=== PATIENT | male | born 1955 | race Caucasian/White ===

== ENCOUNTER 2024-11-19 01:04 | Observation (INO) | payer MEDICARE, MEDICAID, SELFPAY ==
--- NOTE | 2024-11-19 | ECG_ITS ---
Test Reason : CP Blood Pressure : */* mmHG Vent. Rate : 70 BPM Atrial Rate : 70 BPM P-R Int : 134 ms QRS Dur : 94 ms QT Int : 406 ms P-R-T Axes : 48 45 54 degrees QTcB Int : 438 ms Normal sinus rhythm Normal ECG No previous ECGs available Referred By: Generic ED Physician Electronically Signed By: JUAN R HUTCHISON
--- NOTE | ~2024-11-19 | CT_ITS ---
EXAMINATION: CT HEAD WITHOUT IV CONTRAST HISTORY: cognitive impairments. TECHNIQUE: Unenhanced helical CT of the head was performed per standard departmental protocol. Coronal and sagittal reformats of the head were also evaluated. One or more of the following techniques was used for dose reduction: Automated exposure control, adjustment of the mA and/or kV according to patient size, use of iterative reconstruction technique. DLP: 707 mGy-cm COMPARISON: There are no prior studies for comparison. FINDINGS: BRAIN: There is mild prominence of the ventricular system and cortical sulci, consistent with atrophy. Periventricular and subcortical white matter hypodensities are noted which are nonspecific, but often seen in the setting of small vessel ischemic disease. There is a cavum septum callosum, a normal variant. There is no mass effect or midline shift. No intra- or extra-axial fluid collections are identified. SINUSES: There is mucosal thickening in the bilateral maxillary sinuses. The mastoid air cells and middle ear cavities are well pneumatized. ORBITS: The visualized orbits are unremarkable. BONES/SOFT TISSUES: The extracranial soft tissues are unremarkable. The calvarium is intact. No suspicious lytic or sclerotic lesions. CT/CT head/brain wo IV con IMPRESSION: No acute intracranial abnormality. Electronically signed by: Alok Burkett MD 11/21/2024 03:55 PM [facility]
--- NOTE | ~2024-11-19 | XR_ITS ---
CLINICAL HISTORY: cp 1 view chest x-ray Comparison: None Findings: No consolidation or effusion. Normal size heart. No acute fracture. IMPRESSION: 1. No acute findings. This document has been electronically signed by: Mara Dubois MD on 11/19/2024 02:21:51
[2024-11-19 01:08] VITALS: BP 128/73; BP 128/77; PULSE 74; PULSE 90; RESP 16; TEMP 37.1; O2SAT 98; O2SAT 99; BMI 21.2
[2024-11-19 01:31] LABS: MANUAL DIFF FLAG NO
[2024-11-19 01:32] LABS: Basophils Percent Auto 0.3 % (0-2); Eosinophils Absolute Auto 0.2 X10*3/uL (0.0-0.4); Eosinophils Percent Auto 2.1 % (0-4); Hematocrit 36.7 % (42.0-52.0); Hemoglobin 12.3 g/dl (14.0-18.0); Imm Gran Abs Auto 0.05 X10*3/uL (0.00-0.03); Imm Gran Pct Auto 0.7 % (0.0-0.4); Lymphocytes Absolute Auto 2.2 X10*3/uL (1.2-4.9); Mean Corpuscular HGB Conc 33.5 g/dl (31.0-36.0); Mean Corpuscular Hemoglobin 30.4 pg (27.0-33.0); Mean Corpuscular Volume 90.6 fL (80.0-98.0); Mean Platelet Volume 9.7 fL (9.4-12.4); Monocytes Absolute Auto 1.1 X10*3/uL (0.1-1.2); Neutrophils Absolute Auto 3.6 x10*3/uL (2.0-8.3); Neutrophils Percent Auto 50.9 % (45-73); Platelet Count 237 X10*3/uL (160-400); Red Blood Count 4.05 X10*6/uL (4.60-5.80); Red Cell Distribution Width 12.1 % (11.0-16.0); White Blood Count 7.1 X10*3/uL (4.8-10.8)
[2024-11-19 01:52] LABS: Alanine Aminotransferase 26 U/L (0-40); Albumin Level 3.9 g/dL (3.5-5.0); Anion Gap 14 (12-20); Aspartate Amino Transferase 27 U/L (5-37); Bilirubin Total 0.4 mg/dL (0.0-1.0); Blood Urea Nitrogen 15 mg/dL (9-16); Calcium 9.2 mg/dL (8.4-10.2); Carbon Dioxide 28 mmol/L (22-29); Chloride 106 mmol/L (96-108); Creatinine Clr Calc Pharmacy 83.9; Estimated Glomerular Filt Rate > 60; Glucose Random 108 mg/dL (60-115); Potassium 3.5 mmol/L (3.3-5.1); Sodium 144 mmol/L (135-145); Total Protein 7.3 g/dL (6.5-8.0)
[2024-11-19 01:53] LABS: Troponin-I High Sensitivity < 2.7 ng/L (<3.5-35.0)
[2024-11-19 02:08] LABS: Influenza A PCR NEGATIVE (Negative); Influenza B PCR NEGATIVE (Negative); Resp Syncy Virus RNA Qual PCR NEGATIVE (Negative); SARS COV2 PCR INHOUSE NEGATIVE (Negative)
--- NOTE | 2024-11-19 02:53 | ED.CHESTPAIN ---
HPI - Chest Pain General Chief Complaint: Chest Pain Stated Complaint: chest pressure Time Seen by Provider: 11/19/24 02:53 History of Present Illness ED Provider: Mak SINGH narrative: The patient is a 69-year-old male who was brought to the hospital by ambulance. He says that he was brought here from a police station. He says he has been at the police station for 5 hours trying to see his daughter's who was a evp chief exploration officer. Eventually an ambulance was called and he was brought to the hospital. Apparently he had complained of some chest pain. The patient has nurse told me that the paramedics did not mention anything about picking the patient up at a police station. Related Data Allergies Allergy/AdvReac Type Severity Reaction Status Date / Time penicillin V Allergy Unknown Unknown Verified 11/19/24 01:18 Review of Systems Review of Systems: Yes all other systems are reviewed and are negative [facility] Social History Social History Advance Directives: No Advance Directives Information Provided: Yes Do you have a plan to hurt others: No Plan Physical Exam Vital Signs: Vital Signs: Last Vital Signs Temp 97.6 F 11/19/24 04:00 Pulse 72 11/19/24 04:00 Resp 17 11/19/24 04:00 BP 127/74 11/19/24 04:00 Pulse Ox 98 11/19/24 04:00 O2 Del Method Room Air 11/19/24 04:00 BMI result Body Mass Index 21.2 Const: Other: The patient is a slim 69-year-old male who was awake and alert. He does not appear in any distress. He does not appear uncomfortable. HEENT: Other: Face is symmetrical. Mucous membranes moist. Eyes: Other: Pupils are round equal, conjunctivae are clear, extraocular movements intact Neck: Neck: Yes full ROM and Yes no lymphadenopathy Resp: Effort & Inspection: normal respiratory effort Auscultation: clear to auscultation bilaterally Cardio: Rate: regular rate Rhythm: regular rhythm Heart sounds: S1 normal heart sound present and S2 normal heart sound present GI: Other: Abdomen is soft and nontender Skin: Other: Skin is dry and unremarkable Neuro: Other: The patient is awake and alert. He is a disorganized historian and rambles at times. Cranial nerves 2-12 are intact. He moves his extremities symmetrically and appropriately. He seems to have normal strength and coordination. Extrem: Other: No peripheral edema Right lower extremity: normal to inspection Left lower extremity: normal to inspection Psych: Other: The patient is awake and alert. He seems reasonably well-kempt. He seems fairly disorganized in his thinking however. Medical Decision Making Medical Decision Making [facility] Narrative: The patient is a 69-year-old male. According to records obtained from [facility] where he was seen on October 11 the patient may have a history of schizophrenia. I believe the patient was psychiatrically hospitalized at that time but I has been unable to confirm that. The patient told me that he was hospitalized but that he has been out of the hospital for several days. He says that he has lost his apartment. He has been homeless. He told a story about going to a police station for several hours before an ambulance was finally called and he was brought here. Today the patient presented complaining of chest pain that has been going on for several hours. He did not look uncomfortable. He has a nonischemic EKG. Troponins are flat. I think he is medically clear. Given that the patient's presentation is confusing and that the patient seems disorganized and given the information available from the ER visit to [facility] in September I have placed a care team consult. The patient will be placed in physician observation pending evaluation by the care team. Lab Data 11/19/24 01:25 11/19/24 01:25 Labs: Lab Results 11/19/24 11/19/24 Range/Units 01:25 07:44 WBC 7.1 (4.8-10.8) X10*3/uL RBC 4.05 L (4.60-5.80) X10*6/uL Hgb 12.3 L (14.0-18.0) g/dl Hct 36.7 L (42.0-52.0) % MCV 90.6 (80.0-98.0) fL MCH 30.4 (27.0-33.0) pg MCHC 33.5 (31.0-36.0) g/dl RDW 12.1 (11.0-16.0) % Plt Count 237 (160-400) X10*3/uL MPV 9.7 (9.4-12.4) fL Immature Gran % (Auto) 0.7 H (0.0-0.4) % Neut % (Auto) 50.9 (45-73) % Lymph % (Auto) 31.0 (20-40) % [place] % (Auto) 15.0 H (2-11) % Eos % (Auto) 2.1 (0-4) % Baso % (Auto) 0.3 (0-2) % Lymph # (Auto) 2.2 (1.2-4.9) X10*3/uL [place] # (Auto) 1.1 (0.1-1.2) X10*3/uL Eos # (Auto) 0.2 (0.0-0.4) X10*3/uL Baso # (Auto) 0.0 (0.0-0.2) X10*3/uL Abs Immat Gran (auto) 0.05 H (0.00-0.03) X10*3/uL Absolute Neuts (auto) 3.6 (2.0-8.3) x10*3/uL Absolute Nucleated RBC 0.000 (0.0-0.012) X10*3/uL Nucleated RBC % (auto) 0.0 (0.0-0.2) /100WBC Sodium 144 (135-145) mmol/L Potassium 3.5 (3.3-5.1) mmol/L Chloride 106 (96-108) mmol/L Carbon Dioxide 28 (22-29) mmol/L Anion Gap 14 (12-20) BUN 15 (9-16) mg/dL Creatinine 0.81 (0.5-1.4) mg/dL Estim Creat Clear Calc 83.9 Estimated GFR > 60 Random Glucose 108 (60-115) mg/dL Calcium 9.2 (8.4-10.2) mg/dL Total Bilirubin 0.4 (0.0-1.0) mg/dL AST 27 (5-37) U/L ALT 26 (0-40) U/L Alkaline Phosphatase 73 (39-117) U/L Troponin I High Sens < 2.7 2.9 (<3.5-35.0) ng/L Total Protein 7.3 (6.5-8.0) g/dL Albumin 3.9 (3.5-5.0) g/dL Influenza Type A (PCR) NEGATIVE (Negative) Influenza Type B (PCR) NEGATIVE (Negative) RSV RNA Qual (PCR) NEGATIVE (Negative) SARS-CoV-2 RNA (RT-PCR) NEGATIVE (Negative) Discharge Plan Discharge Clinical Impression: Disorganized thinking, Chest pain, Homeless Patient Disposition: Still a Patient Print Language: Trinidadian
[2024-11-19 03:38] LABS: Alkaline Phosphatase 73 U/L (39-117)
[2024-11-19 04:00] VITALS: BP 127/74; PULSE 72; RESP 17; TEMP 36.4; O2SAT 98
[2024-11-19 08:13] LABS: Troponin-I High Sensitivity 2.9 ng/L (<3.5-35.0)
[2024-11-19 08:31] VITALS: BP 124/67; PULSE 73; RESP 18; TEMP 36.6; O2SAT 99
--- NOTE | 2024-11-19 10:28 | PC.NURSE ---
Pt is calm, cooperative. changed to susie aguilera. awaits psych consult. no complaints. ate breakfast. is axox2. Skin pwd.
--- NOTE | 2024-11-19 10:45 | MHC.EDTECH ---
Patient changed over and all his belongings in the closet shelf #1.
--- NOTE | 2024-11-19 11:45 | MHC.CARE ---
Pt assessed by CARE team, dispo pending verbal consult with psychiatry team on IPLOC vs CM referral for LTC placement.
[2024-11-19 14:56] VITALS: BP 128/64; PULSE 71; RESP 18; TEMP 36.7; O2SAT 100
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
[2024-11-19 19:32] VITALS: BP 134/78; PULSE 74; RESP 20; TEMP 36.8; O2SAT 99
--- NOTE | 2024-11-19 19:41 | PC.NURSE ---
Heidy Rodgers (psych) evaluated the patient earlier this shift for consultation. Verbally stated that the patient doesn't have capacity, and requires search for guardianship. Dx schizophrenia. Patient ambulates with steady gait, been requesting phone throughout the shift and offered [facility] phone, but declined. Offered to obtain phone numbers from personal device but requests to use his own device. Per psych, plan is to move patient to overflow ED department, monitor, and will be allowed his personal phone only. The rest of his belongings will remain secured in locked locker and returned upon discharge/placement. Patient is homeless, concerns regarding his ability to care for himself. Patient is easily redirectable and cooperative for this RN throughout the shift.
--- NOTE | 2024-11-19 21:40 | PC.NURSE ---
report received from Emelia WILSON and pt brought over to overflow5. pt reported to this RN he isn't sure why he is in this unit and was not explained prior to arrival. this rn educated pt on the unit redirected to surroundings and offered warm blankets water to which pt accepted and was resting comfortably in bed. pt then approached tech stating he can't be over here and things need to go back to the way they were. attempted verbal reassurance, pt is calm but refusing to stay in this unit as it is scary over here. dry charge process attendant made aware and pt transported back to ed.
--- NOTE | 2024-11-19 23:23 | MHC.CARE ---
This resume writer spoke with RN as there was confusion regarding if pt was case management or an inpatient psychiatric bed search. Per Heidy Rodgers, pt was seen by psych consult and the recommendation at this time is for pt to be referred to Case Management as he appears in need of a guardian and per previous nursing note appears to lack capacity at this time and is unable to care for himself independently in the community. MD was notified at this time and a formal case management consult was requested.
--- NOTE | 2024-11-20 07:12 | PC.NURSE ---
Assumed care of patient at 0645, patient appears to be in no apparent distress this am, calm and cooperative, resting in bed. Pt was visualized getting out of bed and doing push ups multiple times over the past 20 minutes. continue plan of care for case management follow up
[2024-11-20 07:56] VITALS: BP 123/78; PULSE 83; RESP 16; TEMP 37.2; O2SAT 98
--- NOTE | 2024-11-20 10:58 | PHA.MEDREC ---
Addendum entered by Yuri Cardenas RPh 11/20/24 14:33: Med rec was reviewed by [facility]. Original Note: Pharmacy Consult ? Medication Reconciliation Pharmacy reviewed med rec done by nursing. No Known Home Meds confirmed, claims match.
--- NOTE | 2024-11-20 15:17 | PC.NURSE ---
Assumed care of this patient at 1500, patient resting quietly on bed at this time, no signs of distress noted, pt. continues to be CM.
--- NOTE | 2024-11-20 15:38 | MHC.CM.ED ---
Received case management consult from Dr Hollingsworth overnight. Patient seen by Heidy cow tender. Waiting for consult to be written. Patient does not have a HCP at [facility] or [facility]. Received telephone call from Maida [employer]. Maida can be reached via telephone at [phone]. Maida is concerned about patient being d/c'd because he is homeless. T/W explained waiting for psych consult to be completed. T/W will reach out to Maida as soon as consult is available. Anticipate patient will need LTC placement and guardianship. Cinthya Blanton CM Director aware. Continue to monitor for d/c needs.
[2024-11-20 15:42] VITALS: BP 143/87; PULSE 78; RESP 18; TEMP 37.2; O2SAT 99
[2024-11-21 00:24] VITALS: BP 139/98; PULSE 77; RESP 18; TEMP 36.9; O2SAT 98
--- NOTE | 2024-11-21 05:08 | PC.NURSE ---
Patient awake this morning and stating to staff that he feels ashamed and like a prisoner. He feels like he deserves to be treated better. Should also be noted that he was on the floor doing push-ups (multiple rounds).
--- NOTE | 2024-11-21 07:32 | PC.NURSE ---
Patient awake and alert, calm eating breakfast.
[2024-11-21 08:37] VITALS: BP 134/83; PULSE 78; RESP 14; TEMP 36.9; O2SAT 98
--- NOTE | 2024-11-21 09:09 | MHC.CM.ED ---
Patient remains in ER BH pod. Per Heidy, signal maintainer, patient does not have capacity. No HCP at [facility] or [facility]. Anticipate patient will need a guardianship & Yaakov's Order for LTC placement. Cinthya Blanton CM Director aware. Continue to monitor for d/c needs.
--- NOTE | 2024-11-21 09:10 | MHC.EDTECH ---
Fasting lipid ordered by SMT OPERATOR, provider aware patient has had breakfast and is requesting labs. Blood work drawn and sent to lab.
[2024-11-21 09:38] LABS: Cholesterol 224 mg/dL (<200); HDL Cholesterol 82 mg/dL (>40); Iron 91 mcg/dL (45-160); LDL Cholesterol Calculated 124 mg/dL (<100); Percent Iron Saturation 30 % (15-50); Total Iron Binding Capacity 306 mcg/dL (228-428); Triglycerides 93 mg/dL (<150); Unsaturated Iron Binding 215 ug/dL
[2024-11-21 09:53] LABS: TSH reflex Free T4 2.15 uIU/mL (0.32-4.0)
[2024-11-21 10:06] LABS: Folate 13.9 ng/mL (> or = 4.0); Vitamin B12 768 pg/mL (200-900)
[2024-11-21 14:00] VITALS: BP 129/87; PULSE 79; RESP 16; TEMP 37; O2SAT 97
--- NOTE | 2024-11-21 14:32 | PC.NURSE ---
MOCA/ACLS: Pt presents pleasant once therapeutic rapport established. Pt is confused and disorganized. Pt is repetitious and states that he wants to go home with his and five kids. States that he came to the hospital for heart treatment, has not received heart medication and wants to go home Pt is currently homeless and has not lived with his or family for some time. He recently lost his apartment. Pt scored a 12/30 on the MOCA with a +1 for education level. This is indicative of moderate to severe cognitive impairment. Pt scored a 4.4 on the [place] Cognitive Level Screen indicating MODERATE cognitive functional impairment and the need for 24-hour supervision, 34% cognitive assistance due to poor judgment, low safety awareness and difficulty with problem solving with the activities of daily living, self care.
[2024-11-21 21:11] VITALS: BP 139/69; PULSE 93; RESP 18; TEMP 37.3; O2SAT 99
[2024-11-22 06:24] VITALS: BP 137/86; PULSE 79; RESP 16; TEMP 36.7; O2SAT 99
--- NOTE | 2024-11-22 07:01 | PC.NURSE ---
Assumed care of patient at 0645, patient appears to be in no apparent distress noted, patient offers no complaints at this time. Continue plan of care for case management
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
--- NOTE | 2024-11-22 12:35 | MHC.CM.ED ---
Patient remains in ER BH Pod. MOCA & ACL completed. Indicate moderate to severe cognitive impairment. Cinthya Blanton CM Director working on medical certificate for guardianship and Yaakov's order. Continue to monitor for d/c needs.
[2024-11-22] MEDS: risperiDONE 0.5 MG TABLET PO ×2 (12:56→21:16)
[2024-11-22 13:54] VITALS: BP 150/85; PULSE 79; RESP 16; TEMP 36.7; O2SAT 99
--- NOTE | 2024-11-22 19:11 | PC.NURSE ---
patient appears to remain at rest presnetly respirations even and unlabored patient appears in no distress
[2024-11-22 20:27] VITALS: BP 135/89; PULSE 86; RESP 18; TEMP 36.9; O2SAT 95
--- NOTE | 2024-11-23 08:47 | PC.NURSE ---
Pt pacing around in pod, stating he's upset that he's still here; pt refusing meds at this time; care team/CM to be made aware
[2024-11-23 10:14] VITALS: BP 133/83; PULSE 73; RESP 14; TEMP 36.9; O2SAT 97
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
[2024-11-23 17:04] VITALS: BP 128/76; PULSE 71; RESP 16; TEMP 37.2; O2SAT 99
--- NOTE | 2024-11-23 19:03 | PC.NURSE ---
patient appears to remain at rest presently ambulating ad isaac in milieu, awaiting transfer to inpatient unit appears to be in no distress.
--- NOTE | 2024-11-23 22:32 | PC.NURSE ---
patient appears to be relaxed at this time, laying in bed, in the last fifteen minutes tried to call a family member
[2024-11-24 05:01] LABS: MANUAL DIFF FLAG NO
[2024-11-24 05:07] LABS: Basophils Percent Auto 0.3 % (0-2); Eosinophils Absolute Auto 0.1 X10*3/uL (0.0-0.4); Eosinophils Percent Auto 1.8 % (0-4); Hematocrit 39.6 % (42.0-52.0); Hemoglobin 13.1 g/dl (14.0-18.0); Imm Gran Abs Auto 0.02 X10*3/uL (0.00-0.03); Imm Gran Pct Auto 0.3 % (0.0-0.4); Lymphocytes Absolute Auto 2.4 X10*3/uL (1.2-4.9); Lymphocytes Percent Auto 38.8 % (20-40); Mean Corpuscular HGB Conc 33.1 g/dl (31.0-36.0); Mean Corpuscular Hemoglobin 30.3 pg (27.0-33.0); Mean Corpuscular Volume 91.7 fL (80.0-98.0); Mean Platelet Volume 10.5 fL (9.4-12.4); Monocytes Absolute Auto 0.7 X10*3/uL (0.1-1.2); Monocytes Percent Auto 11.8 % (2-11); Neutrophils Absolute Auto 2.9 x10*3/uL (2.0-8.3); Platelet Count 237 X10*3/uL (160-400); Red Blood Count 4.32 X10*6/uL (4.60-5.80); White Blood Count 6.2 X10*3/uL (4.8-10.8)
[2024-11-24 05:17] LABS: Anion Gap 11 (12-20); Blood Urea Nitrogen 15 mg/dL (9-16); Calcium 9.7 mg/dL (8.4-10.2); Carbon Dioxide 29 mmol/L (22-29); Chloride 105 mmol/L (96-108); Creatinine Clr Calc Pharmacy 83.9; Estimated Glomerular Filt Rate > 60; Glucose Random 99 mg/dL (60-115); Potassium 4.6 mmol/L (3.3-5.1); Sodium 140 mmol/L (135-145)
--- NOTE | 2024-11-24 06:24 | PC.NURSE ---
patient appear to remain at rest at resent respirations are even and unlbaored patient appears in no distress
--- NOTE | 2024-11-24 07:01 | PC.NURSE ---
Assumed care of patient at 0645, patient appears to be in no apparent distress this am, laying in bed, respirations even and unlabored. Continue plan of care for admission to [facility]
--- NOTE | 2024-11-24 14:03 | P.PNIM_ITS ---
Subjective Subjective Date of Service: 11/24/24 Interval History: No new issues, very pleasant Physical Exam 2 Vital Signs: Vital Signs: Last Vital Signs Temp 98.9 F 11/23/24 17:04 Pulse 71 11/23/24 17:04 Resp 16 11/23/24 17:04 BP 128/76 11/23/24 17:04 Pulse Ox 99 11/23/24 17:04 O2 Del Method Room Air 11/23/24 17:04 BMI result Body Mass Index 21.2 Const: Other: General: oriented to self, place Resp: CTA bilateral CVS: S1,S2,RRR GI: +BS, NT, no distention Skin: No rash Neuro: motor grossly intact Psych: appropriate affect Objective Data Active Medications Acetaminophen (Acetaminophen 325 Mg Tablet) 650 mg PO Q6H PRN PRN Reason: Pain, Mild 1-3,fever,headache Calcium Carbonate (Calcium Carbonate 750 Mg Tab.Chew) 750 mg PO Q4H PRN PRN Reason: Heartburn Enoxaparin Sodium (Enoxaparin Sodium 40 Mg/0.4 Ml Syringe) 40 mg SUBCUT Q24H [facility] Last Admin: 11/24/24 00:27 Dose: Not Given Documented By: KENTON Non-Admin Reason: ambulatory Magnesium Hydroxide (Milk Of Magnesia 30 Ml Oral.Susp) 30 ml PO DAILY PRN PRN Reason: Constipation Melatonin (Melatonin 3 Mg Tablet) 6 mg PO BEDTIME PRN PRN Reason: Insomnia Ondansetron HCl (Ondansetron Hcl 4 Mg/2 Ml Vial) 4 mg IVPUSH Q8H PRN PRN Reason: Nausea and Vomiting Risperidone (Risperidone 0.5 Mg Tablet) 0.5 mg PO BID [facility] Last Admin: 11/24/24 08:19 Dose: Not Given Documented By: BEKA Non-Admin Reason: Patient Refused Sodium Chloride (0.9 % Sodium Chloride Flush 3 Ml Syringe) 3 ml IVFLUSH QSHIFT [facility] Last Admin: 11/24/24 07:30 Dose: Not Given Documented By: BEKA Non-Admin Reason: no iv present Labs 11/24/24 04:17 11/24/24 04:17 Labs: Laboratory Results - last 24 hr 11/24/24 04:17 MCV 91.7 MCH 30.3 MCHC 33.1 RDW 12.0 Plt Count 237 MPV 10.5 Immature Gran % (Auto) 0.3 Neut % (Auto) 47.0 Lymph % (Auto) 38.8 [place] % (Auto) 11.8 H Eos % (Auto) 1.8 Baso % (Auto) 0.3 Lymph # (Auto) 2.4 [place] # (Auto) 0.7 Eos # (Auto) 0.1 Baso # (Auto) 0.0 Abs Immat Gran (auto) 0.02 Absolute Neuts (auto) 2.9 Absolute Nucleated RBC 0.000 Nucleated RBC % (auto) 0.0 Anion Gap 11 L Estim Creat Clear Calc 83.9 Estimated GFR > 60 Random Glucose 99 Calcium 9.7 Assessment and Plan (1) Cognitive impairment: Status: Acute (2) Major neurocognitive disorder: Status: Acute Plan Pt is a 69-year-old male with unknown PMH who initially presented to the ED four days prior on 11/19/2024 complaining of chest pain. Psychiatric evaluation indicated pt does not have capacity and has significant cognitive impairment and paranoid delusions likely secondary to dementia. Given that pt will require LTC placement requiring guardianship and potentially Downing orders, pt will be admitted to the hospital as a social admission. Dementia Pt evaluated by psychiatry and deemed significantly cognitive impaired with paranoid delusions secondary to dementia Pt unable to take care of self, recently homeless Will require LTC, possible guardianship and/or Downing order Continue risperidone per Psych rec Pt otherwise has no acute medical complaints or known chronic medical conditions. Full Code DVT Prophylaxis: Lovenox Pt be admitted to the hospital under observation as he social admission as he will likely require guardianship and potentially Downing orders in order to place in LTC. Quality Stroke Does the patient have a stroke diagnosis?: No VTE Prior VTE?: No VTE Risk Level:: Medical - moderate - high VTE Device Contraindication: Treatment Not Indicated VTE Drug Contraindication: N/A - Med Ordered
[2024-11-24 16:20] VITALS: BP 134/84; PULSE 77; RESP 14; TEMP 36.8; O2SAT 98
--- NOTE | 2024-11-24 17:48 | PC.NURSE ---
Patient continues to have uneventful day, currently resting in bed, earlier during the day he was watching TV with others in the common area. No apparent distress is noted at this time
--- NOTE | 2024-11-24 20:05 | PC.NURSE ---
patient refusing Risperidone You shira's are trying to drug me
--- NOTE | 2024-11-24 22:42 | PC.NURSE ---
Assumed care of patient at this time, patient is asleep and in no distress. RR even and unlabored. Will monitor throughout the night
--- NOTE | 2024-11-25 00:36 | PC.NURSE ---
Patient being moved to room 7 to accommodate for another person.
--- NOTE | 2024-11-25 00:52 | PC.NURSE ---
Assumed care for pt. Pt layind in bed, resting. No apparent distress noted. Noise minimized and pt allowed to sleep. No apparent distress noted. Monitoring is ongoing.
[2024-11-25 05:35] VITALS: PULSE 62; RESP 16; TEMP 36.8; O2SAT 98
[2024-11-25] MEDS: risperiDONE 0.5 MG TABLET PO ×2 (08:08→22:00)
[2024-11-25 08:09] VITALS: BP 138/77; PULSE 74; RESP 16; O2SAT 98
--- NOTE | 2024-11-25 09:54 | MHC.CM.PN ---
[facility] DELIVERED PT IS A SOCIAL ADMISSION FROM THE ED. PT IS FUNCTIONALLY INDEPENDENT. PT WAS FOUND TO HAVE NO CAPACITY VIA PSYCH AND GUARDIANSHIP/CULLEN ORDER IS PENDING. PT WILL NEED LTC PLACEMENT. DP: GUARDIANSHIP/CULLEN TO BE SOUGHT, WILL NEED LTC PLACEMENT. BLS TRANSPORT. CM WILL CONTINUE TO FOLLOW FOR ANY CHANGE TO DC PLAN/NEEDS.
[2024-11-25 09:59] VITALS: BP 121/71; PULSE 80; RESP 16; TEMP 36.3; O2SAT 97
--- NOTE | 2024-11-25 10:54 | HO.PM.IMPN ---
Subjective Subjective Date of Service: 11/25/24 Interval History: No new issues, very pleasant paranoid Physical Exam Vital Signs: Vital Signs: Last Vital Signs Temp 97.3 F 11/25/24 09:59 Pulse 80 11/25/24 09:59 Resp 16 11/25/24 09:59 BP 121/71 11/25/24 09:59 Pulse Ox 97 11/25/24 09:59 O2 Del Method Room Air 11/25/24 09:59 BMI result Body Mass Index 21.2 Const: Other: General: oriented to self, place Resp: CTA bilateral CVS: S1,S2,RRR GI: +BS, NT, no distention Skin: No rash Neuro: motor grossly intact Psych: appropriate affect Objective Data Active Medications Acetaminophen (Acetaminophen 325 Mg Tablet) 650 mg PO Q6H PRN PRN Reason: Pain, Mild 1-3,fever,headache Calcium Carbonate (Calcium Carbonate 750 Mg Tab.Chew) 750 mg PO Q4H PRN PRN Reason: Heartburn Enoxaparin Sodium (Enoxaparin Sodium 40 Mg/0.4 Ml Syringe) 40 mg SUBCUT Q24H [facility]PLAC[facility] BY [facility] Last Admin: 11/24/24 22:54 Dose: Not Given Documented By: GREGORY Non-Admin Reason: Patient Refused Magnesium Hydroxide (Milk Of Magnesia 30 Ml Oral.Susp) 30 ml PO DAILY PRN PRN Reason: Constipation Melatonin (Melatonin 3 Mg Tablet) 6 mg PO BEDTIME PRN PRN Reason: Insomnia Ondansetron HCl (Ondansetron Hcl 4 Mg/2 Ml Vial) 4 mg IVPUSH Q8H PRN PRN Reason: Nausea and Vomiting Risperidone (Risperidone 0.5 Mg Tablet) 0.5 mg PO BID [facility]PL[facility] BY [facility] Last Admin: 11/25/24 08:08 Dose: 0.5 mg Documented By: SIVAN Sodium Chloride (0.9 % Sodium Chloride Flush 3 Ml Syringe) 3 ml IVFLUSH QSHIFT REPLACED BY [facility] Last Admin: 11/25/24 08:37 Dose: Not Given Documented By: SIVAN Non-Admin Reason: No IV access Labs 11/24/24 04:17 11/24/24 04:17 Assessment and Plan (1) Cognitive impairment: Status: Acute (2) Major neurocognitive disorder: Status: Acute Plan Pt is a 69-year-old male with unknown PMH who initially presented to the ED four days prior on 11/19/2024 complaining of chest pain. Psychiatric evaluation indicated pt does not have capacity and has significant cognitive impairment and paranoid delusions likely secondary to dementia. Given that pt will require LTC placement requiring guardianship and potentially Downing orders, pt will be admitted to the hospital as a social admission. Dementia deemed significantly cognitive impaired with paranoid delusions secondary to dementia he is unable to take care of self, recently homeless Will require LTC, possible guardianship and/or Downing order Continue risperidone per Psych rec Pt otherwise has no acute medical complaints or known chronic medical conditions. Full Code DVT Prophylaxis: Lovenox Pt be admitted to the hospital under observation as he social admission as he will likely require guardianship and potentially Downing orders in order to place in LTC. Quality Stroke Does the patient have a stroke diagnosis?: No VTE Prior VTE?: No VTE Risk Level:: Medical - moderate - high VTE Device Contraindication: Treatment Not Indicated VTE Drug Contraindication: N/A - Med Ordered
[2024-11-25] MEDS: Flu Vacc TS2024-25(6mos up)/PF 0.5 ML SYRINGE IM (12:07)
[2024-11-25 14:38] LABS: Appearance Urine Clear; Color Urine Yellow; Glucose Urine UA Negative (Negative); Leukocyte Esterase Urine Negative (Negative); Nitrite Urine Negative (Negative); PH 5.5 (5.0-9.0); Urine Blood Negative (Negative); Urine Ketones Negative (Negative); Urine Protein Negative (Neg-Trace)
[2024-11-25 14:40] LABS: Bacteria Urine None Seen (None Seen); Hyaline Casts Urine 0-2 /LPF (0-2); RBC Urine 0-2 /HPF (0-2); Squamous Epithelial Cell Urine 0-2 /HPF (0-2); WBC Urine 0-5 /HPF (0-5)
[2024-11-25 15:04] VITALS: BP 116/68; PULSE 78; RESP 16; TEMP 36.6; O2SAT 99
[2024-11-25 19:23] VITALS: BP 106/60; PULSE 80; RESP 18; TEMP 36.3; O2SAT 98
[2024-11-26 03:17] VITALS: BP 123/77; PULSE 67; RESP 14; TEMP 36.2; O2SAT 96
[2024-11-26 07:30] VITALS: BP 133/76; PULSE 73; RESP 16; TEMP 37.1; O2SAT 96
[2024-11-26] MEDS: risperiDONE 0.5 MG TABLET PO ×2 (09:42→20:47)
--- NOTE | 2024-11-26 11:46 | P.PNIM_ITS ---
Subjective Subjective Date of Service: 11/26/24 Interval History: No new issues, very pleasant paranoid Physical Exam 2 Vital Signs: Vital Signs: Last Vital Signs Temp 98.7 F 11/26/24 07:30 Pulse 73 11/26/24 07:30 Resp 16 11/26/24 07:30 BP 133/76 11/26/24 07:30 Pulse Ox 96 11/26/24 07:30 O2 Del Method Room Air 11/26/24 07:30 BMI result Body Mass Index 21.2 Const: Other: General: oriented to self, place Resp: CTA bilateral CVS: S1,S2,RRR GI: +BS, NT, no distention Skin: No rash Neuro: motor grossly intact Psych: appropriate affect Objective Data Active Medications Acetaminophen (Acetaminophen 325 Mg Tablet) 650 mg PO Q6H PRN PRN Reason: Pain, Mild 1-3,fever,headache Calcium Carbonate (Calcium Carbonate 750 Mg Tab.Chew) 750 mg PO Q4H PRN PRN Reason: Heartburn Enoxaparin Sodium (Enoxaparin Sodium 40 Mg/0.4 Ml Syringe) 40 mg SUBCUT Q24H [facility] Last Admin: 11/25/24 22:02 Dose: Not Given Documented By: KRISTIN Non-Admin Reason: Patient Refused Magnesium Hydroxide (Milk Of Magnesia 30 Ml Oral.Susp) 30 ml PO DAILY PRN PRN Reason: Constipation Melatonin (Melatonin 3 Mg Tablet) 6 mg PO BEDTIME PRN PRN Reason: Insomnia Ondansetron HCl (Ondansetron Hcl 4 Mg/2 Ml Vial) 4 mg IVPUSH Q8H PRN PRN Reason: Nausea and Vomiting Risperidone (Risperidone 0.5 Mg Tablet) 0.5 mg PO BID [facility] Last Admin: 11/26/24 09:42 Dose: 0.5 mg Documented By: LEATHA Sodium Chloride (0.9 % Sodium Chloride Flush 3 Ml Syringe) 3 ml IVFLUSH QSHIFT [facility] Last Admin: 11/26/24 09:22 Dose: Not Given Documented By: LEATHA Non-Admin Reason: No Access Labs 11/24/24 04:17 11/24/24 04:17 Labs: Laboratory Results - last 24 hr 11/25/24 14:29 Urine Color Yellow Urine Appearance Clear Urine pH 5.5 Ur Specific [place] 1.020 Urine Protein Negative Urine Glucose (UA) Negative Urine Ketones Negative Urine Blood Negative Urine Nitrite Negative Ur Leukocyte Esterase Negative Urine RBC 0-2 Urine WBC 0-5 Ur Squamous Epith Cells 0-2 Urine Bacteria None Seen Hyaline Casts 0-2 Assessment and Plan (1) Cognitive impairment: Status: Acute (2) Major neurocognitive disorder: Status: Acute Plan Pt is a 69-year-old male with unknown PMH who initially presented to the ED four days prior on 11/19/2024 complaining of chest pain. Psychiatric evaluation indicated pt does not have capacity and has significant cognitive impairment and paranoid delusions likely secondary to dementia. Given that pt will require LTC placement requiring guardianship and potentially Downing orders, pt will be admitted to the hospital as a social admission. Dementia deemed significantly cognitive impaired with paranoid delusions secondary to dementia he is unable to take care of self, recently homeless Will require LTC, possible guardianship and/or Downing order Continue risperidone per Psych rec Pt otherwise has no acute medical complaints or known chronic medical conditions. Full Code DVT Prophylaxis: Lovenox Pt be admitted to the hospital under observation as he social admission as he will likely require guardianship and potentially Downing orders in order to place in LTC . Quality Stroke Does the patient have a stroke diagnosis?: No VTE Prior VTE?: No VTE Risk Level:: Medical - moderate - high VTE Device Contraindication: Treatment Not Indicated VTE Drug Contraindication: N/A - Med Ordered
[2024-11-26 15:48] VITALS: BP 133/78; PULSE 74; RESP 16; TEMP 36.8; O2SAT 99
[2024-11-26 19:19] VITALS: BP 129/82; PULSE 79; RESP 18; TEMP 37.2; O2SAT 99
[2024-11-26] MEDS: Enoxaparin Sodium 40 MG/0.4 ML SYRINGE SUBCUT (23:20)
[2024-11-27 04:00] VITALS: BP 129/79; PULSE 97; RESP 18; TEMP 36.2; O2SAT 97
[2024-11-27 07:15] VITALS: BP 138/82; PULSE 66; RESP 16; TEMP 36.4; O2SAT 97
[2024-11-27] MEDS: risperiDONE 0.5 MG TABLET PO (08:03)
--- NOTE | 2024-11-27 14:36 | MHC.CM.PN ---
CM IS AWAITING GUARDIANSHIP/CULLEN HEARING DATE. CM WILL CONT TO FOLLOW FOR ANY CHANGE IN DC PLAN/NEEDS.
[2024-11-27 15:11] VITALS: BP 127/81; PULSE 79; RESP 18; TEMP 36.8; O2SAT 96
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
--- NOTE | 2024-11-27 16:28 | HO.PM.IMPN ---
Subjective Subjective Date of Service: 11/27/24 Interval History: Offers no acute complaints Requesting for a white tablet that was given to him at other facility Review of Systems unable to obtain review of system due to mental status. Physical Exam Vital Signs: Vital Signs: Last Vital Signs Temp 98.2 F 11/27/24 15:11 Pulse 79 11/27/24 15:11 Resp 18 11/27/24 15:11 BP 127/81 11/27/24 15:11 Pulse Ox 96 11/27/24 15:11 O2 Del Method Room Air 11/27/24 15:11 BMI result Body Mass Index 21.2 Const: Other: General resting comfortably in no acute distress. Neck no JVD. CVS regular rate rhythm, Respiratory lungs clear to auscultation, no respiratory distress. Gastrointestinal abdomen soft, non tender, bowel sounds audible Extremities no edema. Neuro non focal , moving all 4 extremity, speech clear. Skin no rash Psych poor insight Objective Data Active Medications Acetaminophen (Acetaminophen 325 Mg Tablet) 650 mg PO Q6H PRN PRN Reason: Pain, Mild 1-3,fever,headache Calcium Carbonate (Calcium Carbonate 750 Mg Tab.Chew) 750 mg PO Q4H PRN PRN Reason: Heartburn Enoxaparin Sodium (Enoxaparin Sodium 40 Mg/0.4 Ml Syringe) 40 mg SUBCUT Q24H [facility] Last Admin: 11/26/24 23:20 Dose: 40 mg Documented By: KRISTIN Magnesium Hydroxide (Milk Of Magnesia 30 Ml Oral.Susp) 30 ml PO DAILY PRN PRN Reason: Constipation Melatonin (Melatonin 3 Mg Tablet) 6 mg PO BEDTIME PRN PRN Reason: Insomnia Ondansetron HCl (Ondansetron Hcl 4 Mg/2 Ml Vial) 4 mg IVPUSH Q8H PRN PRN Reason: Nausea and Vomiting Risperidone (Risperidone 1 Mg Tablet) 1 mg PO BID [facility] Sodium Chloride (0.9 % Sodium Chloride Flush 3 Ml Syringe) 3 ml IVFLUSH QSHIFT [facility] Last Admin: 11/27/24 15:13 Dose: Not Given Documented By: MARTA Non-Admin Reason: No Access Labs 11/24/24 04:17 11/24/24 04:17 Assessment and Plan (1) Major neurocognitive disorder: Status: Acute (2) Psychosis: Status: Acute (3) Cognitive impairment: Status: Acute Plan 69-year-old male with unknown PMH who initially presented to the ED four days prior on 11/19/2024 complaining of chest pain. Psychiatric evaluation indicated pt does not have capacity and has significant cognitive impairment and paranoid delusions likely secondary to dementia. Given that pt will require LTC placement requiring guardianship and potentially Downing orders, pt will be admitted to the hospital as a social admission. 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 Full Code DVT Prophylaxis: Kimberly admitted to the hospital under observation as he social admission as he will likely require guardianship and potentially Downing orders in order to place in LTC Quality Stroke Does the patient have a stroke diagnosis?: No VTE Prior VTE?: No VTE Risk Level:: Medical - moderate - high VTE Device Contraindication: Treatment Not Indicated VTE Drug Contraindication: N/A - Med Ordered
[2024-11-27 19:19] VITALS: BP 135/77; PULSE 93; RESP 18; TEMP 36.6; O2SAT 97
[2024-11-27] MEDS: risperiDONE 1 MG TABLET PO (20:35)
[2024-11-28 03:59] VITALS: BP 122/70; PULSE 63; RESP 18; TEMP 36.7; O2SAT 94
[2024-11-28 07:02] VITALS: BP 120/66; PULSE 66; RESP 16; TEMP 36.4; O2SAT 97
[2024-11-28] MEDS: risperiDONE 1 MG TABLET PO ×2 (09:08→20:35)
--- NOTE | 2024-11-28 12:09 | HO.PM.IMPN ---
Subjective Subjective Date of Service: 11/28/24 Interval History: Being followed for placement Offers no acute complaints Physical Exam Vital Signs: Vital Signs: Last Vital Signs Temp 97.6 F 11/28/24 07:02 Pulse 66 11/28/24 07:02 Resp 16 11/28/24 07:02 BP 120/66 11/28/24 07:02 Pulse Ox 97 11/28/24 07:02 O2 Del Method Room Air 11/28/24 07:02 BMI result Body Mass Index 21.2 Const: Other: General resting comfortably in no acute distress. Neck no JVD. CVS regular rate rhythm, Respiratory lungs clear to auscultation, no respiratory distress. Gastrointestinal abdomen soft, non tender, bowel sounds audible Extremities no edema. Neuro non focal , moving all 4 extremity, speech clear. Skin no rash Psych poor insight Objective Data Active Medications Acetaminophen (Acetaminophen 325 Mg Tablet) 650 mg PO Q6H PRN PRN Reason: Pain, Mild 1-3,fever,headache Calcium Carbonate (Calcium Carbonate 750 Mg Tab.Chew) 750 mg PO Q4H PRN PRN Reason: Heartburn Enoxaparin Sodium (Enoxaparin Sodium 40 Mg/0.4 Ml Syringe) 40 mg SUBCUT Q24H [facility] Last Admin: 11/27/24 20:37 Dose: Not Given Documented By: JATINDER Non-Admin Reason: Patient Refused Magnesium Hydroxide (Milk Of Magnesia 30 Ml Oral.Susp) 30 ml PO DAILY PRN PRN Reason: Constipation Melatonin (Melatonin 3 Mg Tablet) 6 mg PO BEDTIME PRN PRN Reason: Insomnia Ondansetron HCl (Ondansetron Hcl 4 Mg/2 Ml Vial) 4 mg IVPUSH Q8H PRN PRN Reason: Nausea and Vomiting Risperidone (Risperidone 1 Mg Tablet) 1 mg PO BID [facility] Last Admin: 11/28/24 09:08 Dose: 1 mg Documented By: ESTEFANIA Sodium Chloride (0.9 % Sodium Chloride Flush 3 Ml Syringe) 3 ml IVFLUSH QSHIFT [facility] Last Admin: 11/28/24 09:08 Dose: Not Given Documented By: ESTEFANIA Non-Admin Reason: No Access Labs 11/24/24 04:17 11/24/24 04:17 Assessment and Plan (1) Major neurocognitive disorder: Status: Acute (2) Cognitive impairment: Status: Acute Plan 69-year-old male with unknown PMH who initially presented to the ED four days prior on 11/19/2024 complaining of chest pain. Psychiatric evaluation indicated pt does not have capacity and has significant cognitive impairment and paranoid delusions likely secondary to dementia. Given that pt will require LTC placement requiring guardianship and potentially Downing orders, pt will be admitted to the hospital as a social admission. Unspecified Dementia Head CT showed microvascular changes and atrophy likely mixed etiology vascular and Alzheimer's dementia, has no capacity to make medical decision deemed significantly cognitive impaired with paranoid delusions secondary to dementia UA negative. unable to take care of self, recently homeless , requiring 24 7 care Will require LTC, possible guardianship and/or Downing order Continue risperidone per Psych rec. Pt otherwise has no acute medical complaints or known chronic medical conditions. Full Code DVT Prophylaxis: Kimberly admitted to the hospital under observation as he social admission as he will likely require guardianship and potentially Downing orders in order to place in LTC Quality Stroke Does the patient have a stroke diagnosis?: No VTE Prior VTE?: No VTE Risk Level:: Medical - moderate - high VTE Device Contraindication: Treatment Not Indicated VTE Drug Contraindication: N/A - Med Ordered
[2024-11-28 14:55] VITALS: BP 131/68; PULSE 82; RESP 18; TEMP 36.1; O2SAT 97
[2024-11-28 19:17] VITALS: BP 128/68; PULSE 79; RESP 18; TEMP 36.8; O2SAT 96
[2024-11-28 23:34] VITALS: BP 120/69; PULSE 73; RESP 18; TEMP 36.6; O2SAT 98
[2024-11-29 07:15] VITALS: BP 135/63; PULSE 55; RESP 18; TEMP 36; O2SAT 98
[2024-11-29 07:45] VITALS: BP 113/69; PULSE 84; RESP 16; TEMP 36.1; O2SAT 98
[2024-11-29] MEDS: risperiDONE 1 MG TABLET PO ×2 (07:47→20:22)
--- NOTE | 2024-11-29 13:36 | MHC.CM.PN ---
EMR REVIEWED. PT REMAINS MEDICALLY CLEARED BUT AWAITING GUARDIANSHIP/CULLEN ORDER/CONSERVATOR HEARING DATE FOR LTC PLACEMENT. CM CONTINUES TO FOLLOW FOR PLAN.
--- NOTE | 2024-11-29 15:13 | P.PNIM_ITS ---
Subjective Subjective Date of Service: 11/29/24 Interval History: Offers no acute complaints, tolerating diet no nausea, no vomiting, or abdominal pain, no acute events overnight. Review of Systems Unable to obtain due to mental status Physical Exam 2 Vital Signs: Vital Signs: Last Vital Signs Temp 97.0 F 11/29/24 07:45 Pulse 84 11/29/24 07:45 Resp 16 11/29/24 07:45 BP 113/69 11/29/24 07:45 Pulse Ox 98 11/29/24 07:45 O2 Del Method Room Air 11/29/24 07:45 BMI result Body Mass Index 21.2 Const: Other: General resting comfortably in no acute distress. Neck no JVD. CVS regular rate rhythm, Respiratory lungs clear to auscultation, no respiratory distress. Gastrointestinal abdomen soft, non tender, bowel sounds audible Extremities no edema. Neuro non focal , moving all 4 extremity, speech clear. Skin no rash Psych poor insight Objective Data Active Medications Acetaminophen (Acetaminophen 325 Mg Tablet) 650 mg PO Q6H PRN PRN Reason: Pain, Mild 1-3,fever,headache Calcium Carbonate (Calcium Carbonate 750 Mg Tab.Chew) 750 mg PO Q4H PRN PRN Reason: Heartburn Enoxaparin Sodium (Enoxaparin Sodium 40 Mg/0.4 Ml Syringe) 40 mg SUBCUT Q24H [facility] Last Admin: 11/28/24 20:38 Dose: Not Given Documented By: JATINDER Non-Admin Reason: Patient Refused Magnesium Hydroxide (Milk Of Magnesia 30 Ml Oral.Susp) 30 ml PO DAILY PRN PRN Reason: Constipation Melatonin (Melatonin 3 Mg Tablet) 6 mg PO BEDTIME PRN PRN Reason: Insomnia Ondansetron HCl (Ondansetron Hcl 4 Mg/2 Ml Vial) 4 mg IVPUSH Q8H PRN PRN Reason: Nausea and Vomiting Risperidone (Risperidone 1 Mg Tablet) 1 mg PO BID [facility] Last Admin: 11/29/24 07:47 Dose: 1 mg Documented By: THALIA Sutton 11/24/24 04:17 11/24/24 04:17 Assessment and Plan (1) Major neurocognitive disorder: Status: Acute Plan 69-year-old male with unknown PMH who initially presented to the ED four days prior on 11/19/2024 complaining of chest pain. Psychiatric evaluation indicated pt does not have capacity and has significant cognitive impairment and paranoid delusions likely secondary to dementia. Given that pt will require LTC placement requiring guardianship and potentially Downing orders, pt will be admitted to the hospital as a social admission. Unspecified Dementia Head CT showed microvascular changes and atrophy likely mixed etiology vascular and Alzheimer's dementia, has no capacity to make medical decision deemed significantly cognitive impaired with paranoid delusions secondary to dementia UA negative. unable to take care of self, recently homeless , requiring 24 7 care Will require LTC, possible guardianship and/or Downing order Continue risperidone per Psych rec. Pt otherwise has no acute medical complaints or known chronic medical conditions. Full Code DVT Prophylaxis: Lovenox Being followed by child support case officer, patient awaiting guardianship/Yaakov order/conservator hearing date waiting for long-term care placement. Quality Stroke Does the patient have a stroke diagnosis?: No VTE Prior VTE?: No VTE Risk Level:: Medical - moderate - high VTE Device Contraindication: Treatment Not Indicated VTE Drug Contraindication: N/A - Med Ordered
[2024-11-29 15:38] VITALS: BP 126/75; PULSE 74; RESP 18; TEMP 36.6; O2SAT 96
[2024-11-29 19:23] VITALS: BP 137/64; PULSE 82; RESP 18; TEMP 36.8; O2SAT 98
[2024-11-29 23:31] VITALS: BP 126/76; PULSE 65; RESP 19; TEMP 36.3; O2SAT 96
[2024-11-30 07:34] VITALS: BP 125/80; PULSE 64; RESP 18; TEMP 36.2; O2SAT 98
[2024-11-30] MEDS: risperiDONE 1 MG TABLET PO ×2 (08:51→20:40)
--- NOTE | 2024-11-30 11:21 | HO.PM.IMPN ---
Subjective Subjective Date of Service: 11/30/24 Interval History: Sitting comfortably on bed, offers no acute complaints, no events overnight. Review of Systems All other system reviewed and are negative. Physical Exam Vital Signs: Vital Signs: Last Vital Signs Temp 97.1 F 11/30/24 07:34 Pulse 64 11/30/24 07:34 Resp 18 11/30/24 07:34 BP 125/80 11/30/24 07:34 Pulse Ox 98 11/30/24 07:34 O2 Del Method Room Air 11/30/24 07:34 BMI result Body Mass Index 21.2 Const: Other: General resting comfortably in no acute distress. Neck no JVD. CVS regular rate rhythm, Respiratory lungs clear to auscultation, no respiratory distress. Gastrointestinal abdomen soft, non tender, bowel sounds audible Extremities no edema. Neuro non focal , moving all 4 extremity, speech clear. Skin no rash Psych poor insight Objective Data Active Medications Acetaminophen (Acetaminophen 325 Mg Tablet) 650 mg PO Q6H PRN PRN Reason: Pain, Mild 1-3,fever,headache Calcium Carbonate (Calcium Carbonate 750 Mg Tab.Chew) 750 mg PO Q4H PRN PRN Reason: Heartburn Enoxaparin Sodium (Enoxaparin Sodium 40 Mg/0.4 Ml Syringe) 40 mg SUBCUT Q24H [facility] Last Admin: 11/29/24 23:07 Dose: Not Given Documented By: KRISTIN Non-Admin Reason: Patient Refused Magnesium Hydroxide (Milk Of Magnesia 30 Ml Oral.Susp) 30 ml PO DAILY PRN PRN Reason: Constipation Melatonin (Melatonin 3 Mg Tablet) 6 mg PO BEDTIME PRN PRN Reason: Insomnia Ondansetron HCl (Ondansetron Hcl 4 Mg/2 Ml Vial) 4 mg IVPUSH Q8H PRN PRN Reason: Nausea and Vomiting Risperidone (Risperidone 1 Mg Tablet) 1 mg PO BID [facility] Last Admin: 11/30/24 08:51 Dose: 1 mg Documented By: SOFÍA Labs 11/24/24 04:17 11/24/24 04:17 Assessment and Plan (1) Major neurocognitive disorder: Status: Acute (2) Cognitive impairment: Status: Acute Plan 69-year-old male with unknown PMH who initially presented to the ED four days prior on 11/19/2024 complaining of chest pain. Psychiatric evaluation indicated pt does not have capacity and has significant cognitive impairment and paranoid delusions likely secondary to dementia. Given that pt will require LTC placement requiring guardianship and potentially Downing orders, pt will be admitted to the hospital as a social admission. Unspecified Dementia Head CT showed microvascular changes and atrophy likely mixed etiology vascular and Alzheimer's dementia, has no capacity to make medical decision deemed significantly cognitive impaired with paranoid delusions secondary to dementia UA negative. unable to take care of self, recently homeless , requiring 24 7 care Will require LTC, possible guardianship and/or Downing order Continue risperidone per Psych rec. Pt otherwise has no acute medical complaints or known chronic medical conditions. Full Code DVT Prophylaxis: Maxx Being followed by case planner, patient awaiting guardianship/Yaakov order/conservator hearing date waiting for long-term care placement. Quality Stroke Does the patient have a stroke diagnosis?: No VTE Prior VTE?: No VTE Risk Level:: Medical - moderate - high VTE Device Contraindication: Treatment Not Indicated VTE Drug Contraindication: N/A - Med Ordered
[2024-11-30 16:00] VITALS: BP 129/76; PULSE 72; RESP 18; TEMP 36.8; O2SAT 99
[2024-11-30 23:53] VITALS: BP 135/82; PULSE 61; RESP 16; TEMP 36.3; O2SAT 97
[2024-12-01 07:19] VITALS: BP 126/75; PULSE 68; RESP 18; TEMP 36.4; O2SAT 97
[2024-12-01] MEDS: risperiDONE 1 MG TABLET PO ×2 (08:42→20:02)
--- NOTE | 2024-12-01 11:12 | P.PNIM_ITS ---
Subjective Subjective Date of Service: 12/01/24 Interval History: No acute events overnight. Patient offers no complaints, no fevers, no chills, no pain, tolerating diet. Review of Systems All other system reviewed and are negative and limited due to dementia Physical Exam 2 Vital Signs: Vital Signs: Last Vital Signs Temp 97.5 F 12/01/24 07:19 Pulse 68 12/01/24 07:19 Resp 18 12/01/24 07:19 BP 126/75 12/01/24 07:19 Pulse Ox 97 12/01/24 07:19 O2 Del Method Room Air 12/01/24 07:19 BMI result Body Mass Index 21.2 Const: Other: General resting comfortably in no acute distress. Neck no JVD. CVS regular rate rhythm, Respiratory lungs clear to auscultation, no respiratory distress. Gastrointestinal abdomen soft, non tender, bowel sounds audible Extremities no edema. Neuro non focal , moving all 4 extremity, speech clear. Skin no rash Psych poor insight Objective Data Active Medications Acetaminophen (Acetaminophen 325 Mg Tablet) 650 mg PO Q6H PRN PRN Reason: Pain, Mild 1-3,fever,headache Calcium Carbonate (Calcium Carbonate 750 Mg Tab.Chew) 750 mg PO Q4H PRN PRN Reason: Heartburn Enoxaparin Sodium (Enoxaparin Sodium 40 Mg/0.4 Ml Syringe) 40 mg SUBCUT Q24H [facility] Last Admin: 11/30/24 22:52 Dose: Not Given Documented By: KRISTIN Non-Admin Reason: continues to decline despite education, amb f Magnesium Hydroxide (Milk Of Magnesia 30 Ml Oral.Susp) 30 ml PO DAILY PRN PRN Reason: Constipation Melatonin (Melatonin 3 Mg Tablet) 6 mg PO BEDTIME PRN PRN Reason: Insomnia Ondansetron HCl (Ondansetron Hcl 4 Mg/2 Ml Vial) 4 mg IVPUSH Q8H PRN PRN Reason: Nausea and Vomiting Risperidone (Risperidone 1 Mg Tablet) 1 mg PO BID [facility] Last Admin: 12/01/24 08:42 Dose: 1 mg Documented By: LEATHA Sutton 11/24/24 04:17 11/24/24 04:17 Assessment and Plan (1) Major neurocognitive disorder: Status: Acute Plan 69-year-old male with unknown PMH who initially presented to the ED four days prior on 11/19/2024 complaining of chest pain. Psychiatric evaluation indicated pt does not have capacity and has significant cognitive impairment and paranoid delusions likely secondary to dementia. Given that pt will require LTC placement requiring guardianship and potentially Downing orders, pt will be admitted to the hospital as a social admission. Unspecified Dementia Head CT showed microvascular changes and atrophy likely mixed etiology vascular and Alzheimer's dementia, has no capacity to make medical decision deemed significantly cognitive impaired with paranoid delusions secondary to dementia UA negative. unable to take care of self, recently homeless , requiring 24 7 care Will require LTC, possible guardianship and/or Downing order Continue risperidone per Psych rec. Pt otherwise has no acute medical complaints or known chronic medical conditions. Full Code DVT Prophylaxis: Kimberly Being followed by test case developer, patient awaiting guardianship/Yaakov order/conservator hearing date waiting for long-term care placement. Quality Stroke Does the patient have a stroke diagnosis?: No VTE Prior VTE?: No VTE Risk Level:: Medical - moderate - high VTE Device Contraindication: Treatment Not Indicated VTE Drug Contraindication: N/A - Med Ordered
--- NOTE | 2024-12-01 11:34 | PC.NURSE ---
Telesitter in place for risk of elopement. Pt continues to unplug camera and stating he wants privacy. Pt has not had any behaviors since admission and has not attempted to leave room. Will trial without camera and do frequent rounding and safety checks on pt. Pt calm and cooperative at present.
[2024-12-01 15:14] VITALS: BP 126/66; PULSE 82; RESP 16; TEMP 37.2; O2SAT 98
[2024-12-01 23:54] VITALS: BP 147/77; PULSE 72; RESP 18; TEMP 36.3; O2SAT 98
[2024-12-02 07:43] VITALS: BP 139/79; PULSE 61; RESP 12; TEMP 36.1; O2SAT 97
--- NOTE | 2024-12-02 10:41 | HO.PM.IMPN ---
Subjective Subjective Date of Service: 12/02/24 Interval History: Patient requesting to be placed on medicines that he was receiving at [facility] Reviewed [facility] record patient was on Norvasc 5 mg and Zyprexa 5 mg At present blood pressure is stable does not require antihypertensives Seen by psychiatry on risperidone 1 mg twice daily. Tolerating diet, ambulating without difficulty, no acute issues overnight Review of Systems All other system reviewed and are negative. Physical Exam Vital Signs: Vital Signs: Last Vital Signs Temp 96.9 F 12/02/24 07:43 Pulse 61 12/02/24 07:43 Resp 12 12/02/24 07:43 BP 139/79 12/02/24 07:43 Pulse Ox 97 12/02/24 07:43 O2 Del Method Room Air 12/02/24 07:43 BMI result Body Mass Index 21.2 Const: Other: General resting comfortably in no acute distress. Neck no JVD. CVS regular rate rhythm, Respiratory lungs clear to auscultation, no respiratory distress. Gastrointestinal abdomen soft, non tender, bowel sounds audible Extremities no edema. Neuro non focal , moving all 4 extremity, speech clear. Skin no rash Psych poor insight Objective Data Active Medications Acetaminophen (Acetaminophen 325 Mg Tablet) 650 mg PO Q6H PRN PRN Reason: Pain, Mild 1-3,fever,headache Calcium Carbonate (Calcium Carbonate 750 Mg Tab.Chew) 750 mg PO Q4H PRN PRN Reason: Heartburn Enoxaparin Sodium (Enoxaparin Sodium 40 Mg/0.4 Ml Syringe) 40 mg SUBCUT Q24H [facility] Last Admin: 12/01/24 20:04 Dose: Not Given Documented By: ROSANNA Non-Admin Reason: Patient Refused Magnesium Hydroxide (Milk Of Magnesia 30 Ml Oral.Susp) 30 ml PO DAILY PRN PRN Reason: Constipation Melatonin (Melatonin 3 Mg Tablet) 6 mg PO BEDTIME PRN PRN Reason: Insomnia Ondansetron HCl (Ondansetron Hcl 4 Mg/2 Ml Vial) 4 mg IVPUSH Q8H PRN PRN Reason: Nausea and Vomiting Risperidone (Risperidone 1 Mg Tablet) 1 mg PO BID [facility] Last Admin: 12/02/24 10:36 Dose: Not Given Documented By: ESTEFANIA Non-Admin Reason: Patient Refused Comments: Dr. Stoddard made aware Labs 11/24/24 04:17 11/24/24 04:17 Assessment and Plan (1) Major neurocognitive disorder: Status: Acute Plan 69-year-old male with unknown PMH who initially presented to the ED four days prior on 11/19/2024 complaining of chest pain. Psychiatric evaluation indicated pt does not have capacity and has significant cognitive impairment and paranoid delusions likely secondary to dementia. Given that pt will require LTC placement requiring guardianship and potentially Downing orders, pt will be admitted to the hospital as a social admission. Unspecified Dementia Head CT showed microvascular changes and atrophy likely mixed etiology vascular and Alzheimer's dementia, has no capacity to make medical decision deemed significantly cognitive impaired with paranoid delusions secondary to dementia UA negative. unable to take care of self, recently homeless , requiring 24 7 care Will require LTC, possible guardianship and/or Downing order Continue risperidone per Psych rec. Recommend daily ambulation. Hypertension stable not on meds, previously was on Norvasc 5 mg daily Pt otherwise has no acute medical complaints or known chronic medical conditions. Full Code DVT Prophylaxis: Kimberly Being followed by casework manager, patient awaiting guardianship/Yaakov order/conservator hearing date waiting for long-term care placement. Quality Stroke Does the patient have a stroke diagnosis?: No VTE Prior VTE?: No VTE Risk Level:: Medical - moderate - high VTE Device Contraindication: Treatment Not Indicated VTE Drug Contraindication: N/A - Med Ordered
--- NOTE | 2024-12-02 14:12 | MHC.CM.PN ---
EMR REVIEWED AND PER MD ROUNDS, PT REMAINS MEDICALLY CLEARED. PT IS AWAITING GUARDIANSHIP/CULLEN HEARING DATE. CM WILL CONTINUE TO FOLLOW FOR ANY CHANGE TO PLAN.
[2024-12-02 16:01] VITALS: BP 120/78; PULSE 81; RESP 18; TEMP 36.7; O2SAT 98
[2024-12-02 19:00] VITALS: BP 128/68; PULSE 79; RESP 18; TEMP 36.9; O2SAT 98
--- NOTE | 2024-12-02 20:06 | PC.NURSE ---
pt refused evening risperidal med, hospitalist made aware
[2024-12-02 23:28] VITALS: BP 124/75; PULSE 62; RESP 16; TEMP 37.1; O2SAT 96
[2024-12-03 07:49] VITALS: BP 138/68; PULSE 61; RESP 17; TEMP 36.6; O2SAT 95
[2024-12-03] MEDS: risperiDONE 1 MG TABLET PO ×2 (08:50→19:52)
--- NOTE | 2024-12-03 11:02 | P.PNIM_ITS ---
Subjective Subjective Date of Service: 12/03/24 Interval History: seen and evaluated laying in his bed refused Risperidal yesterday no other events Review of Systems Review of Systems: Yes all other systems are reviewed and are negative Physical Exam 2 Vital Signs: Vital Signs: Last Vital Signs Temp 97.8 F 12/03/24 07:49 Pulse 61 12/03/24 07:49 Resp 17 12/03/24 07:49 BP 138/68 12/03/24 07:49 Pulse Ox 95 12/03/24 07:49 O2 Del Method Room Air 12/03/24 07:49 BMI result Body Mass Index 21.2 Const: Other: General resting comfortably in no acute distress. Neck no JVD. CVS regular rate rhythm, Respiratory lungs clear to auscultation, no respiratory distress. Gastrointestinal abdomen soft, non tender, bowel sounds audible Extremities no edema. Neuro non focal , moving all 4 extremity, speech clear. Skin no rash Psych poor insight Objective Data Active Medications Acetaminophen (Acetaminophen 325 Mg Tablet) 650 mg PO Q6H PRN PRN Reason: Pain, Mild 1-3,fever,headache Calcium Carbonate (Calcium Carbonate 750 Mg Tab.Chew) 750 mg PO Q4H PRN PRN Reason: Heartburn Enoxaparin Sodium (Enoxaparin Sodium 40 Mg/0.4 Ml Syringe) 40 mg SUBCUT Q24H [facility] Last Admin: 12/02/24 18:54 Dose: Not Given Documented By: ELISSA Non-Admin Reason: Patient Refused Magnesium Hydroxide (Milk Of Magnesia 30 Ml Oral.Susp) 30 ml PO DAILY PRN PRN Reason: Constipation Melatonin (Melatonin 3 Mg Tablet) 6 mg PO BEDTIME PRN PRN Reason: Insomnia Ondansetron HCl (Ondansetron Hcl 4 Mg/2 Ml Vial) 4 mg IVPUSH Q8H PRN PRN Reason: Nausea and Vomiting Risperidone (Risperidone 1 Mg Tablet) 1 mg PO BID [facility] Last Admin: 12/03/24 08:50 Dose: 1 mg Documented By: JEFFRY Sutton 11/24/24 04:17 11/24/24 04:17 Assessment and Plan (1) Major neurocognitive disorder: Status: Acute Plan 69-year-old male with unknown PMH who initially presented to the ED four days prior on 11/19/2024 complaining of chest pain. Psychiatric evaluation indicated pt does not have capacity and has significant cognitive impairment and paranoid delusions likely secondary to dementia. Given that pt will require LTC placement requiring guardianship and potentially Downing orders, pt will be admitted to the hospital as a social admission. Unspecified Dementia Head CT showed microvascular changes and atrophy likely mixed etiology vascular and Alzheimer's dementia, has no capacity to make medical decision deemed significantly cognitive impaired with paranoid delusions secondary to dementia UA negative. unable to take care of self, recently homeless , requiring 24 7 care Will require LTC, possible guardianship and/or Downing order Continue risperidone per Psych rec. Recommend daily ambulation. Hypertension stable not on meds, previously was on Norvasc 5 mg daily Full Code DVT Prophylaxis: Maxx Being followed by senior case manager, patient awaiting guardianship/Yaakov order/conservator hearing date waiting for long-term care placement. Quality Stroke Does the patient have a stroke diagnosis?: No VTE Prior VTE?: No VTE Risk Level:: Medical - moderate - high VTE Device Contraindication: Treatment Not Indicated VTE Drug Contraindication: N/A - Med Ordered
[2024-12-03 15:27] VITALS: BP 124/68; PULSE 73; RESP 17; TEMP 36.6; O2SAT 96
[2024-12-03 23:15] VITALS: BP 121/74; PULSE 64; RESP 18; TEMP 36.6; O2SAT 97
[2024-12-03] MEDS: Enoxaparin Sodium 40 MG/0.4 ML SYRINGE SUBCUT (23:27)
[2024-12-04] MEDS: risperiDONE 1 MG TABLET PO ×2 (07:35→19:56)
[2024-12-04 07:36] VITALS: BP 124/69; PULSE 62; RESP 16; TEMP 37.1; O2SAT 98
--- NOTE | 2024-12-04 12:40 | HO.PM.IMPN ---
Subjective Subjective Date of Service: 12/04/24 Interval History: seen and evaluated laying in his bed taking his medications no other events Review of Systems Review of Systems: Yes all other systems are reviewed and are negative Physical Exam Vital Signs: Vital Signs: Last Vital Signs Temp 98.7 F 12/04/24 07:36 Pulse 62 12/04/24 07:36 Resp 16 12/04/24 07:36 BP 124/69 12/04/24 07:36 Pulse Ox 98 12/04/24 07:36 O2 Del Method Room Air 12/04/24 07:36 BMI result Body Mass Index 21.2 Const: Other: General resting comfortably in no acute distress. Neck no JVD. CVS regular rate rhythm, Respiratory lungs clear to auscultation, no respiratory distress. Gastrointestinal abdomen soft, non tender, bowel sounds audible Extremities no edema. Neuro non focal , moving all 4 extremity, speech clear. Skin no rash Psych poor insight Objective Data Active Medications Acetaminophen (Acetaminophen 325 Mg Tablet) 650 mg PO Q6H PRN PRN Reason: Pain, Mild 1-3,fever,headache Calcium Carbonate (Calcium Carbonate 750 Mg Tab.Chew) 750 mg PO Q4H PRN PRN Reason: Heartburn Enoxaparin Sodium (Enoxaparin Sodium 40 Mg/0.4 Ml Syringe) 40 mg SUBCUT Q24H [facility] Last Admin: 12/03/24 23:27 Dose: 40 mg Documented By: BERLIN Magnesium Hydroxide (Milk Of Magnesia 30 Ml Oral.Susp) 30 ml PO DAILY PRN PRN Reason: Constipation Melatonin (Melatonin 3 Mg Tablet) 6 mg PO BEDTIME PRN PRN Reason: Insomnia Ondansetron HCl (Ondansetron Hcl 4 Mg/2 Ml Vial) 4 mg IVPUSH Q8H PRN PRN Reason: Nausea and Vomiting Risperidone (Risperidone 1 Mg Tablet) 1 mg PO BID [facility] Last Admin: 12/04/24 07:35 Dose: 1 mg Documented By: JEFFRY Labs 11/24/24 04:17 11/24/24 04:17 Assessment and Plan (1) Major neurocognitive disorder: Status: Acute Plan 69-year-old male with unknown PMH who initially presented to the ED four days prior on 11/19/2024 complaining of chest pain. Psychiatric evaluation indicated pt does not have capacity and has significant cognitive impairment and paranoid delusions likely secondary to dementia. Given that pt will require LTC placement requiring guardianship and potentially Downing orders, pt will be admitted to the hospital as a social admission. Neurocognitive disorder with Unspecified Dementia Head CT showed microvascular changes and atrophy likely mixed etiology vascular and Alzheimer's dementia, has no capacity to make medical decision deemed significantly cognitive impaired with paranoid delusions secondary to dementia UA negative. unable to take care of self, recently homeless , requiring 24 7 care Will require LTC, possible guardianship and/or Downing order Continue risperidone per Psych rec. Recommend daily ambulation. Hypertension stable not on meds, previously was on Norvasc 5 mg daily Full Code DVT Prophylaxis: Lovenox Being followed by senior case manager, patient awaiting guardianship/Yaakov order/conservator hearing date waiting for long-term care placement. Quality Stroke Does the patient have a stroke diagnosis?: No VTE Prior VTE?: No VTE Risk Level:: Medical - moderate - high VTE Device Contraindication: Treatment Not Indicated VTE Drug Contraindication: N/A - Med Ordered
--- NOTE | 2024-12-04 13:07 | MHC.CM.PN ---
EMR REVIEWED . PER MD ROUNDS, PT IS MEDICALLY CLEARED. PT AWAITS GUARDIANSHIP/CULLEN HEARING DATE. CM CONTINUES TO FOLLOW. DC PLAN WILL BE LTC EVENTUALLY.
[2024-12-04 15:26] VITALS: BP 135/74; PULSE 68; RESP 18; TEMP 37.2; O2SAT 96
[2024-12-04 19:29] VITALS: BP 130/80; PULSE 73; RESP 18; TEMP 37.2; O2SAT 98
[2024-12-04] MEDS: Enoxaparin Sodium 40 MG/0.4 ML SYRINGE SUBCUT (22:36)
[2024-12-04 23:36] VITALS: BP 104/61; PULSE 64; RESP 18; TEMP 36.9; O2SAT 98
[2024-12-05 07:16] VITALS: BP 112/69; PULSE 77; RESP 18; TEMP 36; O2SAT 99
[2024-12-05] MEDS: risperiDONE 1 MG TABLET PO ×2 (07:23→20:05)
--- NOTE | 2024-12-05 10:21 | P.PNIM_ITS ---
Subjective Subjective Date of Service: 12/05/24 Interval History: Resting comfortably offers no acute complaints. .No acute events overnight. Review of Systems All other system reviewed and negative limited due to mental status. Physical Exam 2 Vital Signs: Vital Signs: Last Vital Signs Temp 96.8 F 12/05/24 07:16 Pulse 77 12/05/24 07:16 Resp 18 12/05/24 07:16 BP 112/69 12/05/24 07:16 Pulse Ox 99 12/05/24 07:16 O2 Del Method Room Air 12/05/24 07:16 BMI result Body Mass Index 21.2 Const: Other: General resting comfortably in no acute distress. Neck no JVD. CVS regular rate rhythm, Respiratory lungs clear to auscultation, no respiratory distress. Gastrointestinal abdomen soft, non tender, bowel sounds audible Extremities no edema. Neuro non focal , moving all 4 extremity, speech clear. Skin no rash Psych poor insight Objective Data Active Medications Acetaminophen (Acetaminophen 325 Mg Tablet) 650 mg PO Q6H PRN PRN Reason: Pain, Mild 1-3,fever,headache Calcium Carbonate (Calcium Carbonate 750 Mg Tab.Chew) 750 mg PO Q4H PRN PRN Reason: Heartburn Enoxaparin Sodium (Enoxaparin Sodium 40 Mg/0.4 Ml Syringe) 40 mg SUBCUT Q24H [facility] Last Admin: 12/04/24 22:36 Dose: 40 mg Documented By: KRISTIN Magnesium Hydroxide (Milk Of Magnesia 30 Ml Oral.Susp) 30 ml PO DAILY PRN PRN Reason: Constipation Melatonin (Melatonin 3 Mg Tablet) 6 mg PO BEDTIME PRN PRN Reason: Insomnia Ondansetron HCl (Ondansetron Hcl 4 Mg/2 Ml Vial) 4 mg IVPUSH Q8H PRN PRN Reason: Nausea and Vomiting Risperidone (Risperidone 1 Mg Tablet) 1 mg PO BID [facility] Last Admin: 12/05/24 07:23 Dose: 1 mg Documented By: JEFFRY Labs 11/24/24 04:17 11/24/24 04:17 Assessment and Plan (1) Major neurocognitive disorder: Status: Acute Plan 69-year-old male with unknown PMH who initially presented to the ED four days prior on 11/19/2024 complaining of chest pain. Psychiatric evaluation indicated pt does not have capacity and has significant cognitive impairment and paranoid delusions likely secondary to dementia. Given that pt will require LTC placement requiring guardianship and potentially Downing orders, pt will be admitted to the hospital as a social admission. Unspecified Dementia Head CT showed microvascular changes and atrophy likely mixed etiology vascular and Alzheimer's dementia, has no capacity to make medical decision deemed significantly cognitive impaired with paranoid delusions secondary to dementia UA negative. unable to take care of self, recently homeless , requiring 24 7 care Will require LTC, possible guardianship and/or Downing order Continue risperidone per Psych rec. Recommend daily ambulation. Hypertension stable not on meds, previously was on Norvasc 5 mg daily Pt otherwise has no acute medical complaints or known chronic medical conditions. Full Code DVT Prophylaxis: Kimberly Being followed by foster care case manager, patient awaiting guardianship/Yaakov order/conservator hearing date waiting for long-term care placement. Quality Stroke Does the patient have a stroke diagnosis?: No VTE Prior VTE?: No VTE Risk Level:: Medical - moderate - high VTE Device Contraindication: Treatment Not Indicated VTE Drug Contraindication: N/A - Med Ordered
[2024-12-05 15:07] VITALS: BP 135/85; PULSE 74; RESP 18; TEMP 37; O2SAT 97
[2024-12-05 23:33] VITALS: BP 135/80; PULSE 60; RESP 16; TEMP 37.3; O2SAT 98
[2024-12-05] MEDS: Enoxaparin Sodium 40 MG/0.4 ML SYRINGE SUBCUT (23:58)
[2024-12-06] MEDS: risperiDONE 1 MG TABLET PO ×2 (07:19→20:11)
[2024-12-06 07:40] VITALS: BP 124/70; PULSE 62; RESP 16; TEMP 36.5; O2SAT 96
--- NOTE | 2024-12-06 11:22 | P.PNIM_ITS ---
Subjective Subjective Date of Service: 12/06/24 Interval History: Being followed for placement Offers no acute complaints, denies cough, no shortness of breath, no nausea, no vomiting, no abdominal pain, no constipation tolerating diet and ambulating in room unsteady gait Review of Systems All other system reviewed and are negative Physical Exam 2 Vital Signs: Vital Signs: Last Vital Signs Temp 97.7 F 12/06/24 07:40 Pulse 62 12/06/24 07:40 Resp 16 12/06/24 07:40 BP 124/70 12/06/24 07:40 Pulse Ox 96 12/06/24 07:40 O2 Del Method Room Air 12/06/24 07:40 BMI result Body Mass Index 21.2 Const: Other: General resting comfortably in no acute distress. Neck no JVD. CVS regular rate rhythm, Respiratory lungs clear to auscultation, no respiratory distress. Gastrointestinal abdomen soft, non tender, bowel sounds audible Extremities no edema. Neuro non focal , moving all 4 extremity, speech clear. Skin no rash Psych poor insight Objective Data Active Medications Acetaminophen (Acetaminophen 325 Mg Tablet) 650 mg PO Q6H PRN PRN Reason: Pain, Mild 1-3,fever,headache Calcium Carbonate (Calcium Carbonate 750 Mg Tab.Chew) 750 mg PO Q4H PRN PRN Reason: Heartburn Enoxaparin Sodium (Enoxaparin Sodium 40 Mg/0.4 Ml Syringe) 40 mg SUBCUT Q24H [facility] Last Admin: 12/05/24 23:58 Dose: 40 mg Documented By: RAMOS Magnesium Hydroxide (Milk Of Magnesia 30 Ml Oral.Susp) 30 ml PO DAILY PRN PRN Reason: Constipation Melatonin (Melatonin 3 Mg Tablet) 6 mg PO BEDTIME PRN PRN Reason: Insomnia Ondansetron HCl (Ondansetron Hcl 4 Mg/2 Ml Vial) 4 mg IVPUSH Q8H PRN PRN Reason: Nausea and Vomiting Risperidone (Risperidone 1 Mg Tablet) 1 mg PO BID [facility] Last Admin: 12/06/24 07:19 Dose: 1 mg Documented By: ELISSA Sutton 11/24/24 04:17 11/24/24 04:17 Assessment and Plan (1) Major neurocognitive disorder: Status: Acute Plan 69-year-old male with unknown PMH who initially presented to the ED four days prior on 11/19/2024 complaining of chest pain. Psychiatric evaluation indicated pt does not have capacity and has significant cognitive impairment and paranoid delusions likely secondary to dementia. Given that pt will require LTC placement requiring guardianship and potentially Downing orders, pt will be admitted to the hospital as a social admission. Unspecified Dementia Head CT showed microvascular changes and atrophy likely mixed etiology vascular and Alzheimer's dementia, has no capacity to make medical decision deemed significantly cognitive impaired with paranoid delusions secondary to dementia UA negative. unable to take care of self, recently homeless , requiring 24 7 care Will require LTC, possible guardianship and/or Downing order Continue risperidone per Psych rec. Recommend daily ambulation. Hypertension stable not on meds, previously was on Norvasc 5 mg daily Pt otherwise has no acute medical complaints or known chronic medical conditions. Full Code DVT Prophylaxis: Kimberly Being followed by field case manager, patient awaiting guardianship/Yaakov order/conservator hearing date waiting for long-term care placement. Quality Stroke Does the patient have a stroke diagnosis?: No VTE Prior VTE?: No VTE Risk Level:: Medical - moderate - high VTE Device Contraindication: Treatment Not Indicated VTE Drug Contraindication: N/A - Med Ordered
--- NOTE | 2024-12-06 13:48 | MHC.CM.PN ---
EMR REVIEWED. PT REMAINS MEDICALLY CLEARED. PT IS AWAITING GUARDIANSHIP/CULLEN HEARING DATE FOR EVENTUAL LTC PLACEMENT.
[2024-12-06 15:57] VITALS: BP 137/100; PULSE 78; RESP 16; TEMP 36.9; O2SAT 98
[2024-12-06 23:20] VITALS: BP 122/69; PULSE 67; RESP 18; TEMP 36.2; O2SAT 98
[2024-12-06] MEDS: Enoxaparin Sodium 40 MG/0.4 ML SYRINGE SUBCUT (23:29)
[2024-12-07 07:37] VITALS: BP 125/71; PULSE 62; RESP 16; TEMP 36.8
[2024-12-07] MEDS: risperiDONE 1 MG TABLET PO ×2 (09:18→19:59)
--- NOTE | 2024-12-07 11:11 | P.PNIM_ITS ---
Subjective Subjective Date of Service: 12/07/24 Interval History: No complaints. No acute issues overnight. Review of Systems All other system reviewed and negative but limited due to dementia Physical Exam 2 Vital Signs: Vital Signs: Last Vital Signs Temp 98.3 F 12/07/24 07:37 Pulse 62 12/07/24 07:37 Resp 16 12/07/24 07:37 BP 125/71 12/07/24 07:37 Pulse Ox 98 12/06/24 23:20 O2 Del Method Room Air 12/06/24 23:20 BMI result Body Mass Index 21.2 Const: Other: General resting comfortably in no acute distress. Neck no JVD. CVS regular rate rhythm, Respiratory lungs clear to auscultation, no respiratory distress. Gastrointestinal abdomen soft, non tender, bowel sounds audible Extremities no edema. Neuro non focal , moving all 4 extremity, speech clear. Skin no rash Psych poor insight Objective Data Active Medications Acetaminophen (Acetaminophen 325 Mg Tablet) 650 mg PO Q6H PRN PRN Reason: Pain, Mild 1-3,fever,headache Calcium Carbonate (Calcium Carbonate 750 Mg Tab.Chew) 750 mg PO Q4H PRN PRN Reason: Heartburn Enoxaparin Sodium (Enoxaparin Sodium 40 Mg/0.4 Ml Syringe) 40 mg SUBCUT Q24H [facility] Last Admin: 12/06/24 23:29 Dose: 40 mg Documented By: TREVOR Magnesium Hydroxide (Milk Of Magnesia 30 Ml Oral.Susp) 30 ml PO DAILY PRN PRN Reason: Constipation Melatonin (Melatonin 3 Mg Tablet) 6 mg PO BEDTIME PRN PRN Reason: Insomnia Ondansetron HCl (Ondansetron Hcl 4 Mg/2 Ml Vial) 4 mg IVPUSH Q8H PRN PRN Reason: Nausea and Vomiting Risperidone (Risperidone 1 Mg Tablet) 1 mg PO BID [facility] Last Admin: 12/07/24 09:18 Dose: 1 mg Documented By: NATALI Labs 11/24/24 04:17 11/24/24 04:17 Assessment and Plan (1) Major neurocognitive disorder: Status: Acute Plan 69-year-old male with unknown PMH who initially presented to the ED four days prior on 11/19/2024 complaining of chest pain. Psychiatric evaluation indicated pt does not have capacity and has significant cognitive impairment and paranoid delusions likely secondary to dementia. Given that pt will require LTC placement requiring guardianship and potentially Downing orders, pt will be admitted to the hospital as a social admission. Unspecified Dementia Head CT showed microvascular changes and atrophy likely mixed etiology vascular and Alzheimer's dementia, has no capacity to make medical decision deemed significantly cognitive impaired with paranoid delusions secondary to dementia UA negative. unable to take care of self, recently homeless , requiring 24 7 care Will require LTC, possible guardianship and/or Downing order Continue risperidone per Psych rec. Recommend daily ambulation. Hypertension stable not on meds, previously was on Norvasc 5 mg daily Pt otherwise has no acute medical complaints or known chronic medical conditions. Full Code DVT Prophylaxis: Kimberly Being followed by case investigator, patient awaiting guardianship/Yaakov order/conservator hearing date waiting for long-term care placement. Quality Stroke Does the patient have a stroke diagnosis?: No VTE Prior VTE?: No VTE Risk Level:: Medical - moderate - high VTE Device Contraindication: Treatment Not Indicated VTE Drug Contraindication: N/A - Med Ordered
[2024-12-07 14:48] VITALS: BP 118/69; PULSE 69; RESP 18; TEMP 36.8; O2SAT 96
[2024-12-07] MEDS: Enoxaparin Sodium 40 MG/0.4 ML SYRINGE SUBCUT (22:07)
[2024-12-07 23:33] VITALS: BP 116/67; PULSE 67; RESP 18; TEMP 36.4; O2SAT 98
--- NOTE | 2024-12-08 07:49 | HO.PM.IMPN ---
Subjective Subjective Date of Service: 12/08/24 Interval History: no complaints. no acute events overnight. Independent with ambulation and ADLs Review of Systems all other system reviewed and neg. but limited due to dementia. Physical Exam Vital Signs: Vital Signs: Last Vital Signs Temp 97.6 F 12/07/24 23:33 Pulse 67 12/07/24 23:33 Resp 18 12/07/24 23:33 BP 116/67 12/07/24 23:33 Pulse Ox 98 12/07/24 23:33 O2 Del Method Room Air 12/07/24 23:33 BMI result Body Mass Index 21.2 Const: Other: General resting comfortably in no acute distress. Neck no JVD. CVS regular rate rhythm, Respiratory lungs clear to auscultation, no respiratory distress. Gastrointestinal abdomen soft, non tender, bowel sounds audible Extremities no edema. Neuro non focal , moving all 4 extremity, speech clear. Skin no rash Psych poor insight Objective Data Active Medications Acetaminophen (Acetaminophen 325 Mg Tablet) 650 mg PO Q6H PRN PRN Reason: Pain, Mild 1-3,fever,headache Calcium Carbonate (Calcium Carbonate 750 Mg Tab.Chew) 750 mg PO Q4H PRN PRN Reason: Heartburn Enoxaparin Sodium (Enoxaparin Sodium 40 Mg/0.4 Ml Syringe) 40 mg SUBCUT Q24H [facility] Last Admin: 12/07/24 22:07 Dose: 40 mg Documented By: STEPHAN Magnesium Hydroxide (Milk Of Magnesia 30 Ml Oral.Susp) 30 ml PO DAILY PRN PRN Reason: Constipation Melatonin (Melatonin 3 Mg Tablet) 6 mg PO BEDTIME PRN PRN Reason: Insomnia Ondansetron HCl (Ondansetron Hcl 4 Mg/2 Ml Vial) 4 mg IVPUSH Q8H PRN PRN Reason: Nausea and Vomiting Risperidone (Risperidone 1 Mg Tablet) 1 mg PO BID [facility] Last Admin: 12/07/24 19:59 Dose: 1 mg Documented By: STEHPAN Labs 11/24/24 04:17 11/24/24 04:17 Assessment and Plan (1) Major neurocognitive disorder: Status: Acute Plan 69-year-old male with unknown PMH who initially presented to the ED four days prior on 11/19/2024 complaining of chest pain. Psychiatric evaluation indicated pt does not have capacity and has significant cognitive impairment and paranoid delusions likely secondary to dementia. Given that pt will require LTC placement requiring guardianship and potentially Downing orders, pt will be admitted to the hospital as a social admission. Unspecified Dementia Head CT showed microvascular changes and atrophy likely mixed etiology vascular and Alzheimer's dementia, has no capacity to make medical decision deemed significantly cognitive impaired with paranoid delusions secondary to dementia UA negative. unable to take care of self, recently homeless , requiring 24 7 care Will require LTC, possible guardianship and/or Downing order Continue risperidone per Psych rec. Recommend daily ambulation. Hypertension stable not on meds, previously was on Norvasc 5 mg daily Pt otherwise has no acute medical complaints or known chronic medical conditions. Full Code DVT Prophylaxis: Kimberly Being followed by casework manager, patient awaiting guardianship/Ayakov order/conservator hearing date waiting for long-term care placement. Quality Stroke Does the patient have a stroke diagnosis?: No VTE Prior VTE?: No VTE Risk Level:: Medical - moderate - high VTE Device Contraindication: Treatment Not Indicated VTE Drug Contraindication: N/A - Med Ordered
[2024-12-08 08:00] VITALS: BP 130/81; PULSE 69; RESP 16; TEMP 37.1; O2SAT 97
[2024-12-08] MEDS: risperiDONE 1 MG TABLET PO ×2 (09:21→21:16)
--- NOTE | 2024-12-08 09:47 | PC.NURSE ---
Pt reports BM 12/07/24, but not witnessed. Pt isn't good historian, however does not complain of abd discomfort or symptoms of bloating.
[2024-12-08 15:23] VITALS: BP 131/77; PULSE 65; RESP 16; TEMP 36.8; O2SAT 97
[2024-12-08] MEDS: Enoxaparin Sodium 40 MG/0.4 ML SYRINGE SUBCUT (21:17)
[2024-12-08 23:20] VITALS: BP 117/69; PULSE 60; RESP 18; TEMP 37.1; O2SAT 97
--- NOTE | 2024-12-09 | ECG_ITS ---
Test Reason : chest pain Blood Pressure : */* mmHG Vent. Rate : 75 BPM Atrial Rate : 75 BPM P-R Int : 142 ms QRS Dur : 98 ms QT Int : 388 ms P-R-T Axes : 54 41 39 degrees QTcB Int : 433 ms Normal sinus rhythm Normal ECG When compared with ECG of 19-Nov-2024 01:13, No significant change was found Referred By: Julianna Alcala Electronically Signed By: Onofre Gillis
[2024-12-09 08:56] VITALS: BP 117/68; PULSE 63; RESP 18; TEMP 36.7; O2SAT 97
[2024-12-09] MEDS: risperiDONE 1 MG TABLET PO ×2 (08:59→21:00)
[2024-12-09 10:40] VITALS: BP 110/58; PULSE 75; O2SAT 97
[2024-12-09 12:02] LABS: Troponin-I High Sensitivity < 2.7 ng/L (<3.5-35.0)
--- NOTE | 2024-12-09 12:25 | MHC.CM.PN ---
EMR REVIEWED AND PER MD ROUNDS, PT REMAINS MEDICALLY CLEARED. PT IS AWAITING GUARDIANSHIP/CULLEN HEARING DATE. CM CONTINUES TO FOLLOW.
--- NOTE | 2024-12-09 13:04 | P.PNIM_ITS ---
Subjective Subjective Date of Service: 12/09/24 Interval History: c/o chest tightness/pain no dypnsea/diaphoresis no reflux Review of Systems Review of Systems: Yes all other systems are reviewed and are negative Physical Exam 2 Vital Signs: Vital Signs: Last Vital Signs Temp 98.1 F 12/09/24 08:56 Pulse 75 12/09/24 10:40 Resp 18 12/09/24 08:56 BP 110/58 L 12/09/24 10:40 Pulse Ox 97 12/09/24 10:40 O2 Del Method Room Air 12/09/24 10:40 BMI result Body Mass Index 21.2 Gen: in no acute distress HEENT: sclera anicteric, moist mucus membranes Neck: supple Lungs: clear to auscultation bilaterally Heart: regular rate and rhythm, no murmurs Abd: soft, non-tender, non-distended Ext: no edema Skin: warm/well-perfused Neuro: alert and oriented to self/place [but not town], not to date or situation, ambulatory Psych: impaired insight Objective Data Active Medications Acetaminophen (Acetaminophen 325 Mg Tablet) 650 mg PO Q6H PRN PRN Reason: Pain, Mild 1-3,fever,headache Calcium Carbonate (Calcium Carbonate 750 Mg Tab.Chew) 750 mg PO Q4H PRN PRN Reason: Heartburn Enoxaparin Sodium (Enoxaparin Sodium 40 Mg/0.4 Ml Syringe) 40 mg SUBCUT Q24H [facility] Last Admin: 12/08/24 21:17 Dose: 40 mg Documented By: ANTOIC Magnesium Hydroxide (Milk Of Magnesia 30 Ml Oral.Susp) 30 ml PO DAILY PRN PRN Reason: Constipation Melatonin (Melatonin 3 Mg Tablet) 6 mg PO BEDTIME PRN PRN Reason: Insomnia Ondansetron HCl (Ondansetron Hcl 4 Mg/2 Ml Vial) 4 mg IVPUSH Q8H PRN PRN Reason: Nausea and Vomiting Risperidone (Risperidone 1 Mg Tablet) 1 mg PO BID [facility] Last Admin: 12/09/24 08:59 Dose: 1 mg Documented By: MICHAEL Labs 11/24/24 04:17 11/24/24 04:17 Labs: Laboratory Results - last 24 hr 12/09/24 11:19 Hold Purple Top SEE NOTE Assessment and Plan (1) Major neurocognitive disorder: Status: Acute Plan d17 for 69yo M with unknown PMH who presented to ED on 11/19/24 complianing of chest pain that was deemed to be non-cardiac Psychiatric evaluation indicated that he does not have capacity due to significant cognitive impairment and paranoid delusions likely secondary to dementia. 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 - UA negative, TSH + B12 normal - per Psychiatry, no capacity to make medical decision; paranoid delusions secondary to dementia - pt also now homeless, requires 17/04 care, awaiting guardianship - continue risperidone per Psychiatry HTN - controlled without meds chest pain - appears non-cardiac- repeat EKG without ischemic changes and initial troponin negative [2nd pending] VTE ppx - enoxaparin dispo - long-term care placement In my clinical judgment, the patient requires continued inpatient hospitalization for the following reasons: placement Total time managing care of this patient today: 35 minutes. Quality Stroke Does the patient have a stroke diagnosis?: No VTE Prior VTE?: No VTE Risk Level:: Medical - moderate - high VTE Device Contraindication: Treatment Not Indicated VTE Drug Contraindication: N/A - Med Ordered
[2024-12-09 14:51] LABS: Troponin-I High Sensitivity < 2.7 ng/L (<3.5-35.0)
[2024-12-09 16:06] VITALS: BP 114/67; PULSE 67; RESP 18; TEMP 36.8; O2SAT 99
[2024-12-09] MEDS: Enoxaparin Sodium 40 MG/0.4 ML SYRINGE SUBCUT (21:00)
[2024-12-10 07:49] VITALS: BP 128/73; PULSE 62; RESP 16; TEMP 36.8; O2SAT 98
[2024-12-10] MEDS: risperiDONE 1 MG TABLET PO ×2 (08:28→20:23)
--- NOTE | 2024-12-10 09:17 | P.PNIM_ITS ---
Subjective Subjective Date of Service: 12/10/24 Interval History: chest pressure improved Review of Systems Review of Systems: Yes all other systems are reviewed and are negative Physical Exam 2 Vital Signs: Vital Signs: Last Vital Signs Temp 98.2 F 12/10/24 07:49 Pulse 62 12/10/24 07:49 Resp 16 12/10/24 07:49 BP 128/73 12/10/24 07:49 Pulse Ox 98 12/10/24 07:49 O2 Del Method Room Air 12/10/24 07:49 BMI result Body Mass Index 21.2 Gen: in no acute distress HEENT: sclera anicteric, moist mucus membranes Neck: supple Lungs: clear to auscultation bilaterally Heart: regular rate and rhythm, no murmurs Abd: soft, non-tender, non-distended Ext: no edema Skin: warm/well-perfused Neuro: alert and oriented to self/place [but not town], not to date or situation, ambulatory Psych: impaired insight Objective Data Active Medications Acetaminophen (Acetaminophen 325 Mg Tablet) 650 mg PO Q6H PRN PRN Reason: Pain, Mild 1-3,fever,headache Calcium Carbonate (Calcium Carbonate 750 Mg Tab.Chew) 750 mg PO Q4H PRN PRN Reason: Heartburn Enoxaparin Sodium (Enoxaparin Sodium 40 Mg/0.4 Ml Syringe) 40 mg SUBCUT Q24H [facility] Last Admin: 12/09/24 21:00 Dose: 40 mg Documented By: ELIAS Magnesium Hydroxide (Milk Of Magnesia 30 Ml Oral.Susp) 30 ml PO DAILY PRN PRN Reason: Constipation Melatonin (Melatonin 3 Mg Tablet) 6 mg PO BEDTIME PRN PRN Reason: Insomnia Ondansetron HCl (Ondansetron Hcl 4 Mg/2 Ml Vial) 4 mg IVPUSH Q8H PRN PRN Reason: Nausea and Vomiting Risperidone (Risperidone 1 Mg Tablet) 1 mg PO BID [facility] Last Admin: 12/10/24 08:28 Dose: 1 mg Documented By: MICHAEL Labs 11/24/24 04:17 11/24/24 04:17 Labs: Laboratory Results - last 24 hr 12/09/24 11:19 Hold Purple Top SEE NOTE Assessment and Plan (1) Major neurocognitive disorder: Status: Acute Plan d18 for 69yo M with unknown PMH who presented to ED on 11/19/24 complianing of chest pain that was deemed to be non-cardiac Psychiatric evaluation indicated that he does not have capacity due to significant cognitive impairment and paranoid delusions likely secondary to dementia. 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 - UA negative, TSH + B12 normal - per Psychiatry, no capacity to make medical decision; paranoid delusions secondary to dementia - pt also now homeless, requires 17/04 care, awaiting guardianship - continue risperidone per Psychiatry HTN - controlled without meds chest pain - appears non-cardiac- repeat EKG without ischemic changes and another set of troponins completely negative; trial of Maalox VTE ppx - enoxaparin dispo - long-term care placement In my clinical judgment, the patient requires continued inpatient hospitalization for the following reasons: placement Total time managing care of this patient today: 25 minutes. Quality Stroke Does the patient have a stroke diagnosis?: No VTE Prior VTE?: No VTE Risk Level:: Medical - moderate - high VTE Device Contraindication: Treatment Not Indicated VTE Drug Contraindication: N/A - Med Ordered
[2024-12-10 15:57] VITALS: BP 126/70; PULSE 68; RESP 16; TEMP 37.1; O2SAT 97
[2024-12-10 19:41] VITALS: BP 119/75; PULSE 83; RESP 17; TEMP 37; O2SAT 96
[2024-12-10] MEDS: Enoxaparin Sodium 40 MG/0.4 ML SYRINGE SUBCUT (23:07)
--- NOTE | 2024-12-10 23:50 | PC.NURSE ---
Quality Auditor assumed care of patient at 19:00. Handoff report given at 23:30 to RN assuming care. Please see account underwriter's shift assessment, tasks in worklist, and MAR for full details.
[2024-12-11 06:52] VITALS: BP 134/69; PULSE 67; RESP 16; TEMP 36.6; O2SAT 96
[2024-12-11] MEDS: risperiDONE 1 MG TABLET PO ×2 (09:13→20:06)
--- NOTE | 2024-12-11 09:57 | HO.PM.IMPN ---
Subjective Subjective Date of Service: 12/11/24 Interval History: chest pain improved; no other issues Review of Systems Review of Systems: Yes all other systems are reviewed and are negative Physical Exam Vital Signs: Vital Signs: Last Vital Signs Temp 97.9 F 12/11/24 06:52 Pulse 67 12/11/24 06:52 Resp 16 12/11/24 06:52 BP 134/69 12/11/24 06:52 Pulse Ox 96 12/11/24 06:52 O2 Del Method Room Air 12/11/24 06:52 BMI result Body Mass Index 21.2 Gen: in no acute distress HEENT: sclera anicteric, moist mucus membranes Neck: supple Lungs: clear to auscultation bilaterally Heart: regular rate and rhythm, no murmurs Abd: soft, non-tender, non-distended Ext: no edema Skin: warm/well-perfused Neuro: alert and oriented to self/place [but not town], not to date or situation, ambulatory Psych: impaired insight Objective Data Active Medications Acetaminophen (Acetaminophen 325 Mg Tablet) 650 mg PO Q6H PRN PRN Reason: Pain, Mild 1-3,fever,headache Al Hydroxide/Mg Hydroxide (Magnesium Hydrox/Alum Hydrox 30 Ml Oral.Susp) 15 ml PO Q4H PRN PRN Reason: chest discomfort Calcium Carbonate (Calcium Carbonate 750 Mg Tab.Chew) 750 mg PO Q4H PRN PRN Reason: Heartburn Enoxaparin Sodium (Enoxaparin Sodium 40 Mg/0.4 Ml Syringe) 40 mg SUBCUT Q24H [facility] Last Admin: 12/10/24 23:07 Dose: 40 mg Documented By: REBECCA Magnesium Hydroxide (Milk Of Magnesia 30 Ml Oral.Susp) 30 ml PO DAILY PRN PRN Reason: Constipation Melatonin (Melatonin 3 Mg Tablet) 6 mg PO BEDTIME PRN PRN Reason: Insomnia Ondansetron HCl (Ondansetron Hcl 4 Mg/2 Ml Vial) 4 mg IVPUSH Q8H PRN PRN Reason: Nausea and Vomiting Risperidone (Risperidone 1 Mg Tablet) 1 mg PO BID [facility] Last Admin: 12/11/24 09:13 Dose: 1 mg Documented By: JAJA Sutton 11/24/24 04:17 11/24/24 04:17 Assessment and Plan (1) Major neurocognitive disorder: Status: Acute Plan d19 for 69yo M with unknown PMH who presented to ED on 11/19/24 complianing of chest pain that was deemed to be non-cardiac Psychiatric evaluation indicated that he does not have capacity due to significant cognitive impairment and paranoid delusions likely secondary to dementia. 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 - UA negative, TSH + B12 normal - per Psychiatry, no capacity to make medical decision; paranoid delusions secondary to dementia - pt also now homeless, requires 17/04 care, awaiting guardianship - continue risperidone per Psychiatry HTN - controlled without meds chest pain - appears non-cardiac- repeat EKG without ischemic changes and another set of troponins completely negative; trial of Maalox VTE ppx - enoxaparin dispo - long-term care placement In my clinical judgment, the patient requires continued inpatient hospitalization for the following reasons: placement Total time managing care of this patient today: 25 minutes. Quality Stroke Does the patient have a stroke diagnosis?: No VTE Prior VTE?: No VTE Risk Level:: Medical - moderate - high VTE Device Contraindication: Treatment Not Indicated VTE Drug Contraindication: N/A - Med Ordered
[2024-12-11 15:06] VITALS: BP 137/77; PULSE 73; RESP 18; TEMP 37.1; O2SAT 97
--- NOTE | 2024-12-11 15:30 | MHC.CM.PN ---
EMR REVIEWED . PT REMAINS MEDICALLY CLEARED. AWAITING GUARDIANSHIP/CULLEN HEARING DATE. CM CONTINUES TO FOLLOW
[2024-12-11 18:56] VITALS: BP 131/76; PULSE 81; RESP 20; TEMP 36.6; O2SAT 97
[2024-12-11] MEDS: Enoxaparin Sodium 40 MG/0.4 ML SYRINGE SUBCUT (22:32)
[2024-12-11 23:38] VITALS: BP 116/67; PULSE 63; RESP 16; TEMP 36.7; O2SAT 96
[2024-12-12 07:11] VITALS: BP 126/78; PULSE 57; RESP 12; TEMP 37.1; O2SAT 96
[2024-12-12] MEDS: risperiDONE 1 MG TABLET PO ×2 (08:40→20:05)
--- NOTE | 2024-12-12 11:05 | HO.PM.IMPN ---
Subjective Subjective Date of Service: 12/12/24 Interval History: no new complaints Review of Systems Review of Systems: Yes all other systems are reviewed and are negative Physical Exam Vital Signs: Vital Signs: Last Vital Signs Temp 98.7 F 12/12/24 07:11 Pulse 57 12/12/24 07:11 Resp 12 12/12/24 07:11 BP 126/78 12/12/24 07:11 Pulse Ox 96 12/12/24 07:11 O2 Del Method Room Air 12/12/24 07:11 BMI result Body Mass Index 21.2 Gen: in no acute distress HEENT: sclera anicteric, moist mucus membranes Neck: supple Lungs: clear to auscultation bilaterally Heart: regular rate and rhythm, no murmurs Abd: soft, non-tender, non-distended Ext: no edema Skin: warm/well-perfused Neuro: alert and oriented to self/place [but not town], not to date or situation, ambulatory Psych: impaired insight Objective Data Active Medications Acetaminophen (Acetaminophen 325 Mg Tablet) 650 mg PO Q6H PRN PRN Reason: Pain, Mild 1-3,fever,headache Al Hydroxide/Mg Hydroxide (Magnesium Hydrox/Alum Hydrox 30 Ml Oral.Susp) 15 ml PO Q4H PRN PRN Reason: chest discomfort Calcium Carbonate (Calcium Carbonate 750 Mg Tab.Chew) 750 mg PO Q4H PRN PRN Reason: Heartburn Enoxaparin Sodium (Enoxaparin Sodium 40 Mg/0.4 Ml Syringe) 40 mg SUBCUT Q24H [facility] Last Admin: 12/11/24 22:32 Dose: 40 mg Documented By: JUAQUIN Magnesium Hydroxide (Milk Of Magnesia 30 Ml Oral.Susp) 30 ml PO DAILY PRN PRN Reason: Constipation Melatonin (Melatonin 3 Mg Tablet) 6 mg PO BEDTIME PRN PRN Reason: Insomnia Ondansetron HCl (Ondansetron Hcl 4 Mg/2 Ml Vial) 4 mg IVPUSH Q8H PRN PRN Reason: Nausea and Vomiting Risperidone (Risperidone 1 Mg Tablet) 1 mg PO BID [facility] Last Admin: 12/12/24 08:40 Dose: 1 mg Documented By: SHAUNA Sutton 11/24/24 04:17 11/24/24 04:17 Assessment and Plan (1) Major neurocognitive disorder: Status: Acute Plan d20 for 69yo M with unknown PMH who presented to ED on 11/19/24 complianing of chest pain that was deemed to be non-cardiac Psychiatric evaluation indicated that he does not have capacity due to significant cognitive impairment and paranoid delusions likely secondary to dementia. 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 - UA negative, TSH + B12 normal - per Psychiatry, no capacity to make medical decision; paranoid delusions secondary to dementia - pt also now homeless, requires 17/04 care, awaiting guardianship - continue risperidone per Psychiatry HTN - controlled without meds chest pain - appears non-cardiac- repeat EKG without ischemic changes and another set of troponins completely negative; trial of Maalox VTE ppx - enoxaparin dispo - long-term care placement In my clinical judgment, the patient requires continued inpatient hospitalization for the following reasons: placement Total time managing care of this patient today: 25 minutes. Quality Stroke Does the patient have a stroke diagnosis?: No VTE Prior VTE?: No VTE Risk Level:: Medical - moderate - high VTE Device Contraindication: Treatment Not Indicated VTE Drug Contraindication: N/A - Med Ordered
--- NOTE | 2024-12-12 14:01 | MHC.CM.PN ---
MARCELINO SPOKE WITH DAUGHTER EDWINA, SHE SPOKE WITH ATTY AND GUARDIANSHIP HEARING WITH BE 12/27/24 AT 08:30 AM. MARCELINO CONTINUES TO FOLLOW.
[2024-12-12 15:23] VITALS: BP 110/63; PULSE 69; RESP 18; TEMP 36.6; O2SAT 96
[2024-12-12 19:49] VITALS: BP 125/67; PULSE 69; RESP 18; TEMP 36.9; O2SAT 97
[2024-12-12] MEDS: Enoxaparin Sodium 40 MG/0.4 ML SYRINGE SUBCUT (22:40)
[2024-12-13] VITALS: BP 138/78; PULSE 63; RESP 16; TEMP 36.5; O2SAT 99
[2024-12-13 04:28] VITALS: RESP 16
[2024-12-13 08:00] VITALS: BP 123/69; PULSE 60; RESP 16; TEMP 36.2; O2SAT 97
[2024-12-13] MEDS: risperiDONE 1 MG TABLET PO ×2 (08:06→20:55)
--- NOTE | 2024-12-13 15:12 | MHC.CM.PN ---
EMR REVIEWED AND PT REMAINS MEDICALLY CLEARED. PT AWAITING GUARDIANSHIP/ CULLEN HEARING DATE. CM CONTINUES TO FOLLOW
--- NOTE | 2024-12-13 15:19 | HO.PM.IMPN ---
Subjective Subjective Date of Service: 12/13/24 Interval History: No acute issues overnight Review of Systems Denies chest pain Denies shortness of breath Denies nausea vomiting diarrhea Denies fever chills Physical Exam Vital Signs: Vital Signs: Last Vital Signs Temp 97.1 F 12/13/24 08:00 Pulse 60 12/13/24 08:00 Resp 16 12/13/24 08:00 BP 123/69 12/13/24 08:00 Pulse Ox 97 12/13/24 08:00 O2 Del Method Room Air 12/13/24 08:00 BMI result Body Mass Index 21.2 Const: Other: Awake alert no acute issues Resp: Other: Clear to auscultation bilaterally no rales rhonchi or wheezes Cardio: Other: No S4; positive S1-S2; no S3 murmurs rubs or gallops GI: Other: Soft nontender nondistended normoactive bowel sounds Extrem: Other: No edema bilaterally Objective Data Active Medications Acetaminophen (Acetaminophen 325 Mg Tablet) 650 mg PO Q6H PRN PRN Reason: Pain, Mild 1-3,fever,headache Al Hydroxide/Mg Hydroxide (Magnesium Hydrox/Alum Hydrox 30 Ml Oral.Susp) 15 ml PO Q4H PRN PRN Reason: chest discomfort Calcium Carbonate (Calcium Carbonate 750 Mg Tab.Chew) 750 mg PO Q4H PRN PRN Reason: Heartburn Enoxaparin Sodium (Enoxaparin Sodium 40 Mg/0.4 Ml Syringe) 40 mg SUBCUT Q24H [facility] Last Admin: 12/12/24 22:40 Dose: 40 mg Documented By: REBECCA Magnesium Hydroxide (Milk Of Magnesia 30 Ml Oral.Susp) 30 ml PO DAILY PRN PRN Reason: Constipation Melatonin (Melatonin 3 Mg Tablet) 6 mg PO BEDTIME PRN PRN Reason: Insomnia Ondansetron HCl (Ondansetron Hcl 4 Mg/2 Ml Vial) 4 mg IVPUSH Q8H PRN PRN Reason: Nausea and Vomiting Risperidone (Risperidone 1 Mg Tablet) 1 mg PO BID [facility] Last Admin: 12/13/24 08:06 Dose: 1 mg Documented By: SHAUNA Sutton 11/24/24 04:17 11/24/24 04:17 Assessment and Plan (1) Major neurocognitive disorder: Status: Acute Plan d20 for 69yo M with unknown PMH who presented to ED on 11/19/24 complianing of chest pain that was deemed to be non-cardiac Psychiatric evaluation indicated that he does not have capacity due to significant cognitive impairment and paranoid delusions likely secondary to dementia. Given that pt will require LTC placement involving guardianship and potentially Downing orders, pt was admitted to the hospitalist service 1. 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 - UA negative, TSH + B12 normal - per Psychiatry, no capacity to make medical decision; paranoid delusions secondary to dementia - pt also now homeless, requires 17/04 care, awaiting guardianship - continue risperidone per Psychiatry 2.HTN - controlled without meds Enoxaparin Full code dispo - long-term care placement In my clinical judgment, the patient requires continued inpatient hospitalization for the following reasons: placement Quality Stroke Does the patient have a stroke diagnosis?: No VTE Prior VTE?: No VTE Risk Level:: Medical - moderate - high VTE Device Contraindication: Treatment Not Indicated VTE Drug Contraindication: N/A - Med Ordered
[2024-12-13 15:26] VITALS: BP 118/74; PULSE 72; RESP 18; TEMP 36.9; O2SAT 97
[2024-12-13 19:40] VITALS: BP 121/69; PULSE 69; RESP 18; TEMP 37.1; O2SAT 98
[2024-12-13] MEDS: Enoxaparin Sodium 40 MG/0.4 ML SYRINGE SUBCUT (21:44)
[2024-12-13 23:42] VITALS: BP 130/78; PULSE 57; RESP 16; TEMP 36.8; O2SAT 99
[2024-12-14 07:49] VITALS: BP 138/76; PULSE 68; RESP 12; TEMP 36.6; O2SAT 98
[2024-12-14] MEDS: risperiDONE 1 MG TABLET PO (08:31)
--- NOTE | 2024-12-14 14:43 | P.PNIM_ITS ---
Subjective Subjective Date of Service: 12/14/24 Interval History: No acute issues overnight. Review of Systems Denies chest pain Denies shortness of breath Denies nausea vomiting diarrhea Denies fever chills Physical Exam 2 Vital Signs: Vital Signs: Last Vital Signs Temp 97.9 F 12/14/24 07:49 Pulse 68 12/14/24 07:49 Resp 12 12/14/24 07:49 BP 138/76 12/14/24 07:49 Pulse Ox 98 12/14/24 07:49 O2 Del Method Room Air 12/14/24 07:49 BMI result Body Mass Index 21.2 Const: Other: Awake alert no acute issues Resp: Other: Clear to auscultation bilaterally no rales rhonchi or wheezes Cardio: Other: No S4; positive S1-S2; no S3 murmurs rubs or gallops GI: Other: Soft nontender nondistended normoactive bowel sounds Extrem: Other: No edema bilaterally Objective Data Active Medications Acetaminophen (Acetaminophen 325 Mg Tablet) 650 mg PO Q6H PRN PRN Reason: Pain, Mild 1-3,fever,headache Al Hydroxide/Mg Hydroxide (Magnesium Hydrox/Alum Hydrox 30 Ml Oral.Susp) 15 ml PO Q4H PRN PRN Reason: chest discomfort Calcium Carbonate (Calcium Carbonate 750 Mg Tab.Chew) 750 mg PO Q4H PRN PRN Reason: Heartburn Enoxaparin Sodium (Enoxaparin Sodium 40 Mg/0.4 Ml Syringe) 40 mg SUBCUT Q24H [facility] Last Admin: 12/13/24 21:44 Dose: 40 mg Documented By: KRISTIN Magnesium Hydroxide (Milk Of Magnesia 30 Ml Oral.Susp) 30 ml PO DAILY PRN PRN Reason: Constipation Melatonin (Melatonin 3 Mg Tablet) 6 mg PO BEDTIME PRN PRN Reason: Insomnia Ondansetron HCl (Ondansetron Hcl 4 Mg/2 Ml Vial) 4 mg IVPUSH Q8H PRN PRN Reason: Nausea and Vomiting Risperidone (Risperidone 1 Mg Tablet) 1 mg PO BID [facility] Last Admin: 12/14/24 08:31 Dose: 1 mg Documented By: JAJA Labs 11/24/24 04:17 11/24/24 04:17 Assessment and Plan (1) Major neurocognitive disorder: Status: Acute Plan d20 for 69yo M with unknown PMH who presented to ED on 11/19/24 complianing of chest pain that was deemed to be non-cardiac Psychiatric evaluation indicated that he does not have capacity due to significant cognitive impairment and paranoid delusions likely secondary to dementia. Given that pt will require LTC placement involving guardianship and potentially Downing orders, pt was admitted to the hospitalist service 1. 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 - UA negative, TSH + B12 normal - per Psychiatry, no capacity to make medical decision; paranoid delusions secondary to dementia - pt also now homeless, requires 17/04 care, awaiting guardianship - continue risperidone per Psychiatry 2.HTN - controlled without meds Enoxaparin Full code dispo - long-term care placement In my clinical judgment, the patient requires continued inpatient hospitalization for the following reasons: placement Quality Stroke Does the patient have a stroke diagnosis?: No VTE Prior VTE?: No VTE Risk Level:: Medical - moderate - high VTE Device Contraindication: Treatment Not Indicated VTE Drug Contraindication: N/A - Med Ordered
[2024-12-14 15:54] VITALS: BP 118/68; PULSE 69; RESP 18; TEMP 36.8; O2SAT 96
[2024-12-14 20:11] VITALS: BP 136/76; PULSE 71; RESP 16; TEMP 36.8; O2SAT 98
[2024-12-14] MEDS: Enoxaparin Sodium 40 MG/0.4 ML SYRINGE SUBCUT (22:35)
--- NOTE | 2024-12-14 22:43 | PC.NURSE ---
Addendum entered by Zuleyma Dominguez RN 12/15/24 06:25: Patient continued making paranoid statements overnight, stated to pattern chart writer Now I know why I am here. My daughter knows someone and that's why they are keeping me here. She took my house . Active listening, emotional support and reassurance provided with +effect. Patient since resting/sleeping in bed. Breathing observed even and unlabored without distress on rounds. Original Note: County Historian assumed care of this patient at 19:00. County Historian attempted to medicate patient with scheduled po risperdal. Pt stated it's for my heart . County Historian attempted to educate patient on the meds use and purpose, though he responded that has not been getting this medication and that we lied to him and I haven't seen any doctor in days . County Historian showed patient the MAR and that he has been taking this medication and provided visual/written education, also offered grid casting machine operator helper in case of language barrier. Patient stated I don't need one . Pt allowed to calm/rest. Covering Dr. Sanders was notified. 22:00 hour: County Historian enlisted another nurse to assist in administering patient's scheduled lovenox due to pt's recent paranoia and resistance to medications this evening Pt was initially resistive and paranoid, though was agreeable after much education and reassurance. Pt again offered and educated on risperdal, which he continues to decline. Education print-outs on both medications were provided. Patient resting in bed, no apparent distress. Plan of care continues.
[2024-12-15] VITALS: BP 130/85; PULSE 67; RESP 18; TEMP 36.8; O2SAT 98
[2024-12-15 04:17] VITALS: RESP 16
[2024-12-15 06:08] VITALS: RESP 18
[2024-12-15 07:37] VITALS: BP 132/82; PULSE 70; RESP 16; TEMP 36.9; O2SAT 96
--- NOTE | 2024-12-15 08:51 | PC.NURSE ---
Pt continues to refuse to take scheduled risperidone . Attempted to educate pt on rationale for use and assure him hes been on it since 11/27 . Md Vazquez notified pt is refusing
--- NOTE | 2024-12-15 11:35 | HO.PM.IMPN ---
Subjective Subjective Date of Service: 12/15/24 Interval History: No acute issues overnight. Review of Systems Denies chest pain Denies shortness of breath Denies nausea vomiting diarrhea Denies fever chills Physical Exam Vital Signs: Vital Signs: Last Vital Signs Temp 98.4 F 12/15/24 07:37 Pulse 70 12/15/24 07:37 Resp 16 12/15/24 07:37 BP 132/82 12/15/24 07:37 Pulse Ox 96 12/15/24 07:37 O2 Del Method Room Air 12/15/24 07:37 BMI result Body Mass Index 21.2 Const: Other: Awake alert no acute issues Resp: Other: Clear to auscultation bilaterally no rales rhonchi or wheezes Cardio: Other: No S4; positive S1-S2; no S3 murmurs rubs or gallops GI: Other: Soft nontender nondistended normoactive bowel sounds Extrem: Other: No edema bilaterally Objective Data Active Medications Acetaminophen (Acetaminophen 325 Mg Tablet) 650 mg PO Q6H PRN PRN Reason: Pain, Mild 1-3,fever,headache Al Hydroxide/Mg Hydroxide (Magnesium Hydrox/Alum Hydrox 30 Ml Oral.Susp) 15 ml PO Q4H PRN PRN Reason: chest discomfort Calcium Carbonate (Calcium Carbonate 750 Mg Tab.Chew) 750 mg PO Q4H PRN PRN Reason: Heartburn Enoxaparin Sodium (Enoxaparin Sodium 40 Mg/0.4 Ml Syringe) 40 mg SUBCUT Q24H [facility] Last Admin: 12/14/24 22:35 Dose: 40 mg Documented By: RAMOS Magnesium Hydroxide (Milk Of Magnesia 30 Ml Oral.Susp) 30 ml PO DAILY PRN PRN Reason: Constipation Melatonin (Melatonin 3 Mg Tablet) 6 mg PO BEDTIME PRN PRN Reason: Insomnia Ondansetron HCl (Ondansetron Hcl 4 Mg/2 Ml Vial) 4 mg IVPUSH Q8H PRN PRN Reason: Nausea and Vomiting Risperidone (Risperidone 1 Mg Tablet) 1 mg PO BID [facility] Last Admin: 12/15/24 08:51 Dose: Not Given Documented By: FERDINAND Non-Admin Reason: Patient Refused Labs 11/24/24 04:17 11/24/24 04:17 Assessment and Plan (1) Major neurocognitive disorder: Status: Acute Plan d20 for 69yo M with unknown PMH who presented to ED on 2/25/25 complianing of chest pain that was deemed to be non-cardiac Psychiatric evaluation indicated that he does not have capacity due to significant cognitive impairment and paranoid delusions likely secondary to dementia. Given that pt will require LTC placement involving guardianship and potentially Downing orders, pt was admitted to the hospitalist service 1. 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 - UA negative, TSH + B12 normal - per Psychiatry, no capacity to make medical decision; paranoid delusions secondary to dementia - pt also now homeless, requires 17/04 care, awaiting guardianship - continue risperidone per Psychiatry 2.HTN - controlled without meds Enoxaparin Full code dispo - long-term care placement In my clinical judgment, the patient requires continued inpatient hospitalization for the following reasons: placement Quality Stroke Does the patient have a stroke diagnosis?: No VTE Prior VTE?: No VTE Risk Level:: Medical - moderate - high VTE Device Contraindication: Treatment Not Indicated VTE Drug Contraindication: N/A - Med Ordered
[2024-12-15 15:16] VITALS: BP 141/79; PULSE 78; RESP 18; TEMP 36.5; O2SAT 98
[2024-12-15] MEDS: Enoxaparin Sodium 40 MG/0.4 ML SYRINGE SUBCUT (22:19)
--- NOTE | 2024-12-15 22:22 | PC.NURSE ---
patient refused his bedtime risperidone. claims he does not take that med.
[2024-12-16] VITALS: BP 129/78; PULSE 56; RESP 16; TEMP 36.6; O2SAT 97
--- NOTE | 2024-12-16 07:04 | PC.NURSE ---
pt refusing risperidol at this time
[2024-12-16 07:40] VITALS: BP 118/61; PULSE 54; RESP 16; TEMP 36.6; O2SAT 97
--- NOTE | 2024-12-16 11:49 | MHC.CM.PN ---
Patient continues waiting for placement. Guardianship papers served to patient. Hearing scheduled for 12/19 @ 3:30PM. CM will continue to follow for d/c planning needs.
--- NOTE | 2024-12-16 13:41 | P.PNIM_ITS ---
Subjective Subjective Date of Service: 12/16/24 Interval History: No acute issues overnight. Review of Systems Denies chest pain Denies shortness of breath Denies nausea vomiting diarrhea Denies fever chills Physical Exam 2 Vital Signs: Vital Signs: Last Vital Signs Temp 97.9 F 12/16/24 07:40 Pulse 54 12/16/24 07:40 Resp 16 12/16/24 07:40 BP 118/61 12/16/24 07:40 Pulse Ox 97 12/16/24 07:40 O2 Del Method Room Air 12/16/24 07:40 BMI result Body Mass Index 21.2 Const: Other: Awake alert no acute issues Resp: Other: Clear to auscultation bilaterally no rales rhonchi or wheezes Cardio: Other: No S4; positive S1-S2; no S3 murmurs rubs or gallops GI: Other: Soft nontender nondistended normoactive bowel sounds Extrem: Other: No edema bilaterally Objective Data Active Medications Acetaminophen (Acetaminophen 325 Mg Tablet) 650 mg PO Q6H PRN PRN Reason: Pain, Mild 1-3,fever,headache Al Hydroxide/Mg Hydroxide (Magnesium Hydrox/Alum Hydrox 30 Ml Oral.Susp) 15 ml PO Q4H PRN PRN Reason: chest discomfort Calcium Carbonate (Calcium Carbonate 750 Mg Tab.Chew) 750 mg PO Q4H PRN PRN Reason: Heartburn Enoxaparin Sodium (Enoxaparin Sodium 40 Mg/0.4 Ml Syringe) 40 mg SUBCUT Q24H [facility] Last Admin: 12/15/24 22:19 Dose: 40 mg Documented By: JATINDER Magnesium Hydroxide (Milk Of Magnesia 30 Ml Oral.Susp) 30 ml PO DAILY PRN PRN Reason: Constipation Melatonin (Melatonin 3 Mg Tablet) 6 mg PO BEDTIME PRN PRN Reason: Insomnia Ondansetron HCl (Ondansetron Hcl 4 Mg/2 Ml Vial) 4 mg IVPUSH Q8H PRN PRN Reason: Nausea and Vomiting Risperidone (Risperidone 1 Mg Tablet) 1 mg PO BID [facility] Last Admin: 12/16/24 07:03 Dose: Not Given Documented By: ELISSA Non-Admin Reason: Patient Refused Labs 11/24/24 04:17 11/24/24 04:17 Assessment and Plan (1) Major neurocognitive disorder: Status: Acute Plan d20 for 69yo M with unknown PMH who presented to ED on 11/19/24 complianing of chest pain that was deemed to be non-cardiac Psychiatric evaluation indicated that he does not have capacity due to significant cognitive impairment and paranoid delusions likely secondary to dementia. Given that pt will require LTC placement involving guardianship and potentially Downing orders, pt was admitted to the hospitalist service 1. 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 - UA negative, TSH + B12 normal - per Psychiatry, no capacity to make medical decision; paranoid delusions secondary to dementia - pt also now homeless, requires 24/ care, awaiting guardianship - continue risperidone per Psychiatry 2.HTN - controlled without meds Enoxaparin Full code dispo - long-term care placement In my clinical judgment, the patient requires continued inpatient hospitalization for the following reasons: placement Quality Stroke Does the patient have a stroke diagnosis?: No VTE Prior VTE?: No VTE Risk Level:: Medical - moderate - high VTE Device Contraindication: Treatment Not Indicated VTE Drug Contraindication: N/A - Med Ordered
[2024-12-16 15:14] VITALS: BP 120/69; PULSE 67; RESP 18; TEMP 37.1; O2SAT 96
[2024-12-16] MEDS: Enoxaparin Sodium 40 MG/0.4 ML SYRINGE SUBCUT (21:48)
[2024-12-16 23:02] VITALS: BP 125/72; PULSE 59; RESP 18; TEMP 36.9; O2SAT 96
[2024-12-17 07:38] VITALS: BP 134/79; PULSE 59; RESP 16; TEMP 36.9; O2SAT 98
--- NOTE | 2024-12-17 14:12 | HO.PM.IMPN ---
Subjective Subjective Date of Service: 12/17/24 Interval History: no new issues Review of Systems Review of Systems: Yes all other systems are reviewed and are negative Physical Exam Vital Signs: Vital Signs: Last Vital Signs Temp 98.4 F 12/17/24 07:38 Pulse 59 12/17/24 07:38 Resp 16 12/17/24 07:38 BP 134/79 12/17/24 07:38 Pulse Ox 98 12/17/24 07:38 O2 Del Method Room Air 12/17/24 07:38 BMI result Body Mass Index 21.2 Gen: in no acute distress HEENT: sclera anicteric, moist mucus membranes Neck: supple Lungs: clear to auscultation bilaterally Heart: regular rate and rhythm, no murmurs Abd: soft, non-tender, non-distended Ext: no edema Skin: warm/well-perfused Neuro: alert and oriented to self/place [but not town], not to date or situation, ambulatory Psych: impaired insight Objective Data Active Medications Acetaminophen (Acetaminophen 325 Mg Tablet) 650 mg PO Q6H PRN PRN Reason: Pain, Mild 1-3,fever,headache Al Hydroxide/Mg Hydroxide (Magnesium Hydrox/Alum Hydrox 30 Ml Oral.Susp) 15 ml PO Q4H PRN PRN Reason: chest discomfort Calcium Carbonate (Calcium Carbonate 750 Mg Tab.Chew) 750 mg PO Q4H PRN PRN Reason: Heartburn Enoxaparin Sodium (Enoxaparin Sodium 40 Mg/0.4 Ml Syringe) 40 mg SUBCUT Q24H [facility] Last Admin: 12/16/24 21:48 Dose: 40 mg Documented By: JATINDER Magnesium Hydroxide (Milk Of Magnesia 30 Ml Oral.Susp) 30 ml PO DAILY PRN PRN Reason: Constipation Melatonin (Melatonin 3 Mg Tablet) 6 mg PO BEDTIME PRN PRN Reason: Insomnia Ondansetron HCl (Ondansetron Hcl 4 Mg/2 Ml Vial) 4 mg IVPUSH Q8H PRN PRN Reason: Nausea and Vomiting Risperidone (Risperidone 1 Mg Tablet) 1 mg PO BID [facility] Last Admin: 12/17/24 08:34 Dose: Not Given Documented By: CHAPIS Non-Admin Reason: Patient Refused Labs 11/24/24 04:17 11/24/24 04:17 Assessment and Plan (1) Major neurocognitive disorder: Status: Acute Plan d25 for 69yo M with unknown PMH who presented to ED on 11/19/24 complianing of chest pain that was deemed to be non-cardiac Psychiatric evaluation indicated that he does not have capacity due to significant cognitive impairment and paranoid delusions likely secondary to dementia. 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 - UA negative, TSH + B12 normal - per Psychiatry, no capacity to make medical decision; paranoid delusions secondary to dementia - pt also now homeless, requires / care, awaiting guardianship - continue risperidone per Psychiatry HTN - controlled without meds chest pain - appears non-cardiac- repeat EKG without ischemic changes and another set of troponins completely negative; trial of Maalox VTE ppx - enoxaparin dispo - long-term care placement In my clinical judgment, the patient requires continued inpatient hospitalization for the following reasons: placement Total time managing care of this patient today: 25 minutes. Quality Stroke Does the patient have a stroke diagnosis?: No VTE Prior VTE?: No VTE Risk Level:: Medical - moderate - high VTE Device Contraindication: Treatment Not Indicated VTE Drug Contraindication: N/A - Med Ordered
[2024-12-17 15:02] VITALS: BP 122/71; PULSE 67; RESP 16; TEMP 37; O2SAT 97
[2024-12-17] MEDS: Enoxaparin Sodium 40 MG/0.4 ML SYRINGE SUBCUT (20:57)
[2024-12-17 23:31] VITALS: BP 125/67; PULSE 66; RESP 18; TEMP 36.4; O2SAT 96
[2024-12-18 07:33] VITALS: BP 147/78; PULSE 57; RESP 14; TEMP 36.8; O2SAT 98
--- NOTE | 2024-12-18 09:33 | P.PNIM_ITS ---
Subjective Subjective Date of Service: 12/18/24 Interval History: no new issues Review of Systems Review of Systems: Yes all other systems are reviewed and are negative Physical Exam 2 Vital Signs: Vital Signs: Last Vital Signs Temp 98.3 F 12/18/24 07:33 Pulse 57 12/18/24 07:33 Resp 14 12/18/24 07:33 BP 147/78 H 12/18/24 07:33 Pulse Ox 98 12/18/24 07:33 O2 Del Method Room Air 12/18/24 07:33 BMI result Body Mass Index 21.2 Gen: in no acute distress HEENT: sclera anicteric, moist mucus membranes Neck: supple Lungs: clear to auscultation bilaterally Heart: regular rate and rhythm, no murmurs Abd: soft, non-tender, non-distended Ext: no edema Skin: warm/well-perfused Neuro: alert and oriented to self/place [but not town], not to date or situation, ambulatory Psych: impaired insight Objective Data Active Medications Acetaminophen (Acetaminophen 325 Mg Tablet) 650 mg PO Q6H PRN PRN Reason: Pain, Mild 1-3,fever,headache Al Hydroxide/Mg Hydroxide (Magnesium Hydrox/Alum Hydrox 30 Ml Oral.Susp) 15 ml PO Q4H PRN PRN Reason: chest discomfort Calcium Carbonate (Calcium Carbonate 750 Mg Tab.Chew) 750 mg PO Q4H PRN PRN Reason: Heartburn Enoxaparin Sodium (Enoxaparin Sodium 40 Mg/0.4 Ml Syringe) 40 mg SUBCUT Q24H [facility] Last Admin: 12/17/24 20:57 Dose: 40 mg Documented By: FILIPE Magnesium Hydroxide (Milk Of Magnesia 30 Ml Oral.Susp) 30 ml PO DAILY PRN PRN Reason: Constipation Melatonin (Melatonin 3 Mg Tablet) 6 mg PO BEDTIME PRN PRN Reason: Insomnia Ondansetron HCl (Ondansetron Hcl 4 Mg/2 Ml Vial) 4 mg IVPUSH Q8H PRN PRN Reason: Nausea and Vomiting Risperidone (Risperidone 1 Mg Tablet) 1 mg PO BID [facility] Last Admin: 12/18/24 08:56 Dose: Not Given Documented By: YAEL Non-Admin Reason: Patient Refused Labs 11/24/24 04:17 11/24/24 04:17 Assessment and Plan (1) Major neurocognitive disorder: Status: Acute Plan d26 for 69yo M with unknown PMH who presented to ED on 11/19/24 complianing of chest pain that was deemed to be non-cardiac Psychiatric evaluation indicated that he does not have capacity due to significant cognitive impairment and paranoid delusions likely secondary to dementia. 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 - UA negative, TSH + B12 normal - per Psychiatry, no capacity to make medical decision; paranoid delusions secondary to dementia - pt also now homeless, requires / care, awaiting guardianship - continue risperidone per Psychiatry HTN - controlled without meds chest pain - appears non-cardiac- repeat EKG without ischemic changes and another set of troponins completely negative; trial of Maalox VTE ppx - enoxaparin dispo - long-term care placement In my clinical judgment, the patient requires continued inpatient hospitalization for the following reasons: placement Total time managing care of this patient today: 25 minutes. Quality Stroke Does the patient have a stroke diagnosis?: No VTE Prior VTE?: No VTE Risk Level:: Medical - moderate - high VTE Device Contraindication: Treatment Not Indicated VTE Drug Contraindication: N/A - Med Ordered
--- NOTE | 2024-12-18 10:51 | MHC.CM.PN ---
Patient continues to await guardianship. CM will continue to follow.
[2024-12-18 15:20] VITALS: BP 129/69; PULSE 62; RESP 17; TEMP 36.9; O2SAT 96
[2024-12-18] MEDS: Enoxaparin Sodium 40 MG/0.4 ML SYRINGE SUBCUT (22:45)
[2024-12-18 23:34] VITALS: BP 130/95; PULSE 66; RESP 20; TEMP 37.2; O2SAT 97
[2024-12-19 07:36] VITALS: BP 139/79; PULSE 63; TEMP 36.5; O2SAT 97
--- NOTE | 2024-12-19 09:50 | HO.PM.IMPN ---
Subjective Subjective Date of Service: 12/19/24 Interval History: frustrated at prolonged hospital stay Review of Systems Review of Systems: Yes all other systems are reviewed and are negative Physical Exam Vital Signs: Vital Signs: Last Vital Signs Temp 97.7 F 12/19/24 07:36 Pulse 63 12/19/24 07:36 Resp 20 12/18/24 23:34 BP 139/79 12/19/24 07:36 Pulse Ox 97 12/19/24 07:36 O2 Del Method Room Air 12/19/24 07:36 BMI result Body Mass Index 21.2 Gen: in no acute distress HEENT: sclera anicteric, moist mucus membranes Neck: supple Lungs: clear to auscultation bilaterally Heart: regular rate and rhythm, no murmurs Abd: soft, non-tender, non-distended Ext: no edema Skin: warm/well-perfused Neuro: alert and oriented to self/place [but not town], not to date or situation, ambulatory Psych: impaired insight Objective Data Active Medications Acetaminophen (Acetaminophen 325 Mg Tablet) 650 mg PO Q6H PRN PRN Reason: Pain, Mild 1-3,fever,headache Al Hydroxide/Mg Hydroxide (Magnesium Hydrox/Alum Hydrox 30 Ml Oral.Susp) 15 ml PO Q4H PRN PRN Reason: chest discomfort Calcium Carbonate (Calcium Carbonate 750 Mg Tab.Chew) 750 mg PO Q4H PRN PRN Reason: Heartburn Enoxaparin Sodium (Enoxaparin Sodium 40 Mg/0.4 Ml Syringe) 40 mg SUBCUT Q24H [facility] Last Admin: 12/18/24 22:45 Dose: 40 mg Documented By: MORENITA Magnesium Hydroxide (Milk Of Magnesia 30 Ml Oral.Susp) 30 ml PO DAILY PRN PRN Reason: Constipation Melatonin (Melatonin 3 Mg Tablet) 6 mg PO BEDTIME PRN PRN Reason: Insomnia Ondansetron HCl (Ondansetron Hcl 4 Mg/2 Ml Vial) 4 mg IVPUSH Q8H PRN PRN Reason: Nausea and Vomiting Risperidone (Risperidone 1 Mg Tablet) 1 mg PO BID [facility] Last Admin: 12/19/24 07:14 Dose: Not Given Documented By: YESSENIA Non-Admin Reason: Patient Refused Labs 11/24/24 04:17 11/24/24 04:17 Assessment and Plan (1) Major neurocognitive disorder: Status: Acute Plan d27 for 69yo M with unknown PMH who presented to ED on 11/19/24 complianing of chest pain that was deemed to be non-cardiac Psychiatric evaluation indicated that he does not have capacity due to significant cognitive impairment and paranoid delusions likely secondary to dementia. 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 - UA negative, TSH + B12 normal - per Psychiatry, no capacity to make medical decision; paranoid delusions secondary to dementia - pt also now homeless, requires / care, awaiting guardianship - continue risperidone per Psychiatry HTN - controlled without meds chest pain - appears non-cardiac- repeat EKG without ischemic changes and another set of troponins completely negative; trial of Maalox VTE ppx - enoxaparin dispo - long-term care placement In my clinical judgment, the patient requires continued inpatient hospitalization for the following reasons: placement Total time managing care of this patient today: 25 minutes. Quality Stroke Does the patient have a stroke diagnosis?: No VTE Prior VTE?: No VTE Risk Level:: Medical - moderate - high VTE Device Contraindication: Treatment Not Indicated VTE Drug Contraindication: N/A - Med Ordered
[2024-12-19 10:04] VITALS: BP 138/91; PULSE 92; RESP 12; TEMP 37.1; O2SAT 96
[2024-12-19 16:00] VITALS: BP 128/74; PULSE 60; RESP 14; TEMP 36.8; O2SAT 98
[2024-12-19] MEDS: Enoxaparin Sodium 40 MG/0.4 ML SYRINGE SUBCUT (23:03)
[2024-12-19 23:04] VITALS: BP 141/88; PULSE 66; RESP 20; TEMP 36.6; O2SAT 97
[2024-12-20 07:28] VITALS: BP 135/70; PULSE 62; RESP 16; TEMP 36.2; O2SAT 98
--- NOTE | 2024-12-20 11:12 | HO.PM.IMPN ---
Subjective Subjective Date of Service: 12/20/24 Interval History: no new complaints Review of Systems Review of Systems: Yes all other systems are reviewed and are negative Physical Exam Vital Signs: Vital Signs: Last Vital Signs Temp 97.1 F 12/20/24 07:28 Pulse 62 12/20/24 07:28 Resp 16 12/20/24 07:28 BP 135/70 12/20/24 07:28 Pulse Ox 98 12/20/24 07:28 O2 Del Method Room Air 12/20/24 07:28 BMI result Body Mass Index 21.2 Gen: in no acute distress Lungs: clear to auscultation bilaterally Heart: regular rate and rhythm, no murmurs Abd: soft, non-tender, non-distended Neuro: alert and oriented to self/place [but not town], not to date or situation, ambulatory Psych: impaired insight Objective Data Active Medications Acetaminophen (Acetaminophen 325 Mg Tablet) 650 mg PO Q6H PRN PRN Reason: Pain, Mild 1-3,fever,headache Al Hydroxide/Mg Hydroxide (Magnesium Hydrox/Alum Hydrox 30 Ml Oral.Susp) 15 ml PO Q4H PRN PRN Reason: chest discomfort Calcium Carbonate (Calcium Carbonate 750 Mg Tab.Chew) 750 mg PO Q4H PRN PRN Reason: Heartburn Enoxaparin Sodium (Enoxaparin Sodium 40 Mg/0.4 Ml Syringe) 40 mg SUBCUT Q24H [facility] Last Admin: 12/19/24 23:03 Dose: 40 mg Documented By: MORENITA Magnesium Hydroxide (Milk Of Magnesia 30 Ml Oral.Susp) 30 ml PO DAILY PRN PRN Reason: Constipation Melatonin (Melatonin 3 Mg Tablet) 6 mg PO BEDTIME PRN PRN Reason: Insomnia Ondansetron HCl (Ondansetron Hcl 4 Mg/2 Ml Vial) 4 mg IVPUSH Q8H PRN PRN Reason: Nausea and Vomiting Risperidone (Risperidone 1 Mg Tablet) 1 mg PO BID [facility] Last Admin: 12/20/24 08:55 Dose: Not Given Documented By: YESSENIA Non-Admin Reason: Patient Refused Labs 11/24/24 04:17 11/24/24 04:17 Assessment and Plan (1) Major neurocognitive disorder: Status: Acute Plan d28 for 69yo M with unknown PMH who presented to ED on 11/19/24 complianing of chest pain that was deemed to be non-cardiac Psychiatric evaluation indicated that he does not have capacity due to significant cognitive impairment and paranoid delusions likely secondary to dementia. 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 - UA negative, TSH + B12 normal - per Psychiatry, no capacity to make medical decision; paranoid delusions secondary to dementia - pt also now homeless, requires 24/7 care, awaiting guardianship - continue risperidone per Psychiatry HTN - controlled without meds chest pain - appears non-cardiac- repeat EKG without ischemic changes and another set of troponins completely negative; trial of Maalox VTE ppx - enoxaparin dispo - long-term care placement In my clinical judgment, the patient requires continued inpatient hospitalization for the following reasons: placement Total time managing care of this patient today: 25 minutes. Quality Stroke Does the patient have a stroke diagnosis?: No VTE Prior VTE?: No VTE Risk Level:: Medical - moderate - high VTE Device Contraindication: Treatment Not Indicated VTE Drug Contraindication: N/A - Med Ordered
--- NOTE | 2024-12-20 11:52 | MHC.CM.PN ---
Patient continues to await guardianship and LTC placement. CM will continue to follow.
[2024-12-20 15:33] VITALS: BP 134/80; PULSE 68; RESP 18; TEMP 36.3; O2SAT 97
[2024-12-20] MEDS: Enoxaparin Sodium 40 MG/0.4 ML SYRINGE SUBCUT (22:02)
[2024-12-21] VITALS: BP 117/64; PULSE 65; RESP 18; TEMP 36.6; O2SAT 96
[2024-12-21 07:21] VITALS: BP 134/76; PULSE 55; RESP 14; TEMP 36.5; O2SAT 97
--- NOTE | 2024-12-21 11:03 | P.PNIM_ITS ---
Subjective Subjective Date of Service: 12/21/24 Interval History: no new events Review of Systems Review of Systems: Yes all other systems are reviewed and are negative Physical Exam 2 Vital Signs: Vital Signs: Last Vital Signs Temp 97.7 F 12/21/24 07:21 Pulse 55 12/21/24 07:21 Resp 14 12/21/24 07:21 BP 134/76 12/21/24 07:21 Pulse Ox 97 12/21/24 07:21 O2 Del Method Room Air 12/21/24 07:21 BMI result Body Mass Index 21.2 Gen: in no acute distress Lungs: clear to auscultation bilaterally Heart: regular rate and rhythm, no murmurs Abd: soft, non-tender, non-distended Neuro: alert and oriented to self/place [but not town], not to date or situation, ambulatory Psych: impaired insight Objective Data Active Medications Acetaminophen (Acetaminophen 325 Mg Tablet) 650 mg PO Q6H PRN PRN Reason: Pain, Mild 1-3,fever,headache Al Hydroxide/Mg Hydroxide (Magnesium Hydrox/Alum Hydrox 30 Ml Oral.Susp) 15 ml PO Q4H PRN PRN Reason: chest discomfort Calcium Carbonate (Calcium Carbonate 750 Mg Tab.Chew) 750 mg PO Q4H PRN PRN Reason: Heartburn Enoxaparin Sodium (Enoxaparin Sodium 40 Mg/0.4 Ml Syringe) 40 mg SUBCUT Q24H [facility] Last Admin: 12/20/24 22:02 Dose: 40 mg Documented By: THAIS Magnesium Hydroxide (Milk Of Magnesia 30 Ml Oral.Susp) 30 ml PO DAILY PRN PRN Reason: Constipation Melatonin (Melatonin 3 Mg Tablet) 6 mg PO BEDTIME PRN PRN Reason: Insomnia Ondansetron HCl (Ondansetron Hcl 4 Mg/2 Ml Vial) 4 mg IVPUSH Q8H PRN PRN Reason: Nausea and Vomiting Risperidone (Risperidone 1 Mg Tablet) 1 mg PO BID [facility] Last Admin: 12/21/24 08:31 Dose: Not Given Documented By: CHAPIS Non-Admin Reason: Patient Refused Labs 11/24/24 04:17 11/24/24 04:17 Assessment and Plan (1) Major neurocognitive disorder: Status: Acute Plan d29 for 69yo M with unknown PMH who presented to ED on 11/19/24 complianing of chest pain that was deemed to be non-cardiac Psychiatric evaluation indicated that he does not have capacity due to significant cognitive impairment and paranoid delusions likely secondary to dementia. 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 - UA negative, TSH + B12 normal - per Psychiatry, no capacity to make medical decision; paranoid delusions secondary to dementia - pt also now homeless, requires 24/7 care, awaiting guardianship - continue risperidone per Psychiatry HTN - controlled without meds chest pain - appears non-cardiac- repeat EKG without ischemic changes and another set of troponins completely negative; trial of Maalox VTE ppx - enoxaparin dispo - long-term care placement In my clinical judgment, the patient requires continued inpatient hospitalization for the following reasons: placement Total time managing care of this patient today: 25 minutes. Quality Stroke Does the patient have a stroke diagnosis?: No VTE Prior VTE?: No VTE Risk Level:: Medical - moderate - high VTE Device Contraindication: Treatment Not Indicated VTE Drug Contraindication: N/A - Med Ordered
[2024-12-21 15:24] VITALS: BP 115/69; PULSE 61; RESP 16; TEMP 36.6; O2SAT 97
[2024-12-21] MEDS: Enoxaparin Sodium 40 MG/0.4 ML SYRINGE SUBCUT (22:07)
[2024-12-21 23:40] VITALS: BP 131/79; PULSE 56; RESP 18; TEMP 36.6; O2SAT 98
[2024-12-22 07:54] VITALS: BP 133/79; PULSE 66; RESP 18; TEMP 36.7; O2SAT 97
--- NOTE | 2024-12-22 10:08 | HO.PM.IMPN ---
Subjective Subjective Date of Service: 12/22/24 Interval History: no new complaints Review of Systems Review of Systems: Yes all other systems are reviewed and are negative Physical Exam Vital Signs: Vital Signs: Last Vital Signs Temp 98.0 F 12/22/24 07:54 Pulse 66 12/22/24 07:54 Resp 18 12/22/24 07:54 BP 133/79 12/22/24 07:54 Pulse Ox 97 12/22/24 07:54 O2 Del Method Room Air 12/22/24 07:54 BMI result Body Mass Index 21.2 Gen: in no acute distress Lungs: clear to auscultation bilaterally Heart: regular rate and rhythm, no murmurs Abd: soft, non-tender, non-distended Neuro: alert and oriented to self/place [but not town], not to date or situation, ambulatory Psych: impaired insight Objective Data Active Medications Acetaminophen (Acetaminophen 325 Mg Tablet) 650 mg PO Q6H PRN PRN Reason: Pain, Mild 1-3,fever,headache Al Hydroxide/Mg Hydroxide (Magnesium Hydrox/Alum Hydrox 30 Ml Oral.Susp) 15 ml PO Q4H PRN PRN Reason: chest discomfort Calcium Carbonate (Calcium Carbonate 750 Mg Tab.Chew) 750 mg PO Q4H PRN PRN Reason: Heartburn Enoxaparin Sodium (Enoxaparin Sodium 40 Mg/0.4 Ml Syringe) 40 mg SUBCUT Q24H [facility] Last Admin: 12/21/24 22:07 Dose: 40 mg Documented By: THAIS Magnesium Hydroxide (Milk Of Magnesia 30 Ml Oral.Susp) 30 ml PO DAILY PRN PRN Reason: Constipation Melatonin (Melatonin 3 Mg Tablet) 6 mg PO BEDTIME PRN PRN Reason: Insomnia Ondansetron HCl (Ondansetron Hcl 4 Mg/2 Ml Vial) 4 mg IVPUSH Q8H PRN PRN Reason: Nausea and Vomiting Risperidone (Risperidone 1 Mg Tablet) 1 mg PO BID [facility] Last Admin: 12/22/24 08:01 Dose: Not Given Documented By: CHAPIS Non-Admin Reason: Patient Refused Labs 11/24/24 04:17 11/24/24 04:17 Assessment and Plan (1) Major neurocognitive disorder: Status: Acute Plan d30 for 69yo M with unknown PMH who presented to ED on 11/19/24 complianing of chest pain that was deemed to be non-cardiac Psychiatric evaluation indicated that he does not have capacity due to significant cognitive impairment and paranoid delusions likely secondary to dementia. 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 - UA negative, TSH + B12 normal - per Psychiatry, no capacity to make medical decision; paranoid delusions secondary to dementia - pt also now homeless, requires 24/7 care, awaiting guardianship - continue risperidone per Psychiatry HTN - controlled without meds chest pain - appears non-cardiac- repeat EKG without ischemic changes and another set of troponins completely negative; trial of Maalox VTE ppx - enoxaparin dispo - long-term care placement In my clinical judgment, the patient requires continued inpatient hospitalization for the following reasons: placement Total time managing care of this patient today: 25 minutes. Quality Stroke Does the patient have a stroke diagnosis?: No VTE Prior VTE?: No VTE Risk Level:: Medical - moderate - high VTE Device Contraindication: Treatment Not Indicated VTE Drug Contraindication: N/A - Med Ordered
[2024-12-22 15:17] VITALS: BP 125/67; PULSE 65; RESP 18; TEMP 37.1; O2SAT 97
[2024-12-22] MEDS: Enoxaparin Sodium 40 MG/0.4 ML SYRINGE SUBCUT (21:31)
[2024-12-23 07:15] VITALS: BP 132/82; PULSE 63; RESP 16; TEMP 36.7; O2SAT 98
--- NOTE | 2024-12-23 14:42 | HO.PM.IMPN ---
Subjective Subjective Date of Service: 12/23/24 Interval History: No acute issues overnight. Review of Systems Denies chest pain Denies shortness of breath Denies nausea vomiting diarrhea Denies fever chills Physical Exam Vital Signs: Vital Signs: Last Vital Signs Temp 98.0 F 12/23/24 07:15 Pulse 63 12/23/24 07:15 Resp 16 12/23/24 07:15 BP 132/82 12/23/24 07:15 Pulse Ox 98 12/23/24 07:15 O2 Del Method Room Air 12/23/24 07:15 BMI result Body Mass Index 21.2 Const: Other: Awake alert no acute issues Resp: Other: Clear to auscultation bilaterally no rales rhonchi or wheezes Cardio: Other: No S4; positive S1-S2; no S3 murmurs rubs or gallops GI: Other: Soft nontender nondistended normoactive bowel sounds Extrem: Other: No edema bilaterally Objective Data Active Medications Acetaminophen (Acetaminophen 325 Mg Tablet) 650 mg PO Q6H PRN PRN Reason: Pain, Mild 1-3,fever,headache Al Hydroxide/Mg Hydroxide (Magnesium Hydrox/Alum Hydrox 30 Ml Oral.Susp) 15 ml PO Q4H PRN PRN Reason: chest discomfort Calcium Carbonate (Calcium Carbonate 750 Mg Tab.Chew) 750 mg PO Q4H PRN PRN Reason: Heartburn Enoxaparin Sodium (Enoxaparin Sodium 40 Mg/0.4 Ml Syringe) 40 mg SUBCUT Q24H [facility] Last Admin: 12/22/24 21:31 Dose: 40 mg Documented By: BRENDON Magnesium Hydroxide (Milk Of Magnesia 30 Ml Oral.Susp) 30 ml PO DAILY PRN PRN Reason: Constipation Melatonin (Melatonin 3 Mg Tablet) 6 mg PO BEDTIME PRN PRN Reason: Insomnia Ondansetron HCl (Ondansetron Hcl 4 Mg/2 Ml Vial) 4 mg IVPUSH Q8H PRN PRN Reason: Nausea and Vomiting Risperidone (Risperidone 1 Mg Tablet) 1 mg PO BID [facility] Last Admin: 12/23/24 08:33 Dose: Not Given Documented By: ROSANNA Non-Admin Reason: Patient Refused Labs 11/24/24 04:17 11/24/24 04:17 Assessment and Plan (1) Major neurocognitive disorder: Status: Acute Plan 69yo M with unknown PMH who presented to ED on 11/19/24 complianing of chest pain that was deemed to be non-cardiac Psychiatric evaluation indicated that he does not have capacity due to significant cognitive impairment and paranoid delusions likely secondary to dementia. Given that pt will require LTC placement involving guardianship and potentially Downing orders, pt was admitted to the hospitalist service 1. 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 - UA negative, TSH + B12 normal - per Psychiatry, no capacity to make medical decision; paranoid delusions secondary to dementia - pt also now homeless, requires 17/04 care, awaiting guardianship - continue risperidone per Psychiatry 2.HTN - controlled without meds Enoxaparin Full code dispo - long-term care placement In my clinical judgment, the patient requires continued inpatient hospitalization for the following reasons: placement Quality Stroke Does the patient have a stroke diagnosis?: No VTE Prior VTE?: No VTE Risk Level:: Medical - moderate - high VTE Device Contraindication: Treatment Not Indicated VTE Drug Contraindication: N/A - Med Ordered
--- NOTE | 2024-12-23 15:17 | MHC.CM.PN ---
Patient is scheduled for a Guardianship and Downing hearing 12/27/24 8:30am. DP LTC via BLS.
[2024-12-23 16:32] VITALS: BP 145/65; PULSE 74; RESP 18; TEMP 36.4; O2SAT 98
[2024-12-23] MEDS: Enoxaparin Sodium 40 MG/0.4 ML SYRINGE SUBCUT (21:13)
[2024-12-23 23:17] VITALS: BP 118/63; PULSE 62; RESP 18; TEMP 36.2; O2SAT 97
[2024-12-24 07:29] VITALS: BP 135/82; PULSE 56; RESP 14; TEMP 36.3; O2SAT 98
--- NOTE | 2024-12-24 11:13 | HO.PM.IMPN ---
Subjective Subjective Date of Service: 12/24/24 Interval History: No acute complaints, no events overnight Review of Systems all other system reviewed and are negative Physical Exam Vital Signs: Vital Signs: Last Vital Signs Temp 97.4 F 12/24/24 07:29 Pulse 56 12/24/24 07:29 Resp 14 12/24/24 07:29 BP 135/82 12/24/24 07:29 Pulse Ox 98 12/24/24 07:29 O2 Del Method Room Air 12/24/24 07:29 BMI result Body Mass Index 21.2 Const: Other: Gen: in no acute distress Lungs: clear to auscultation bilaterally Heart: regular rate and rhythm, no murmurs Abd: soft, non-tender, non-distended Neuro: alert and oriented to self/place [but not town], not to date or situation, ambulatory Psych: impaired insight Objective Data Active Medications Acetaminophen (Acetaminophen 325 Mg Tablet) 650 mg PO Q6H PRN PRN Reason: Pain, Mild 1-3,fever,headache Al Hydroxide/Mg Hydroxide (Magnesium Hydrox/Alum Hydrox 30 Ml Oral.Susp) 15 ml PO Q4H PRN PRN Reason: chest discomfort Calcium Carbonate (Calcium Carbonate 750 Mg Tab.Chew) 750 mg PO Q4H PRN PRN Reason: Heartburn Enoxaparin Sodium (Enoxaparin Sodium 40 Mg/0.4 Ml Syringe) 40 mg SUBCUT Q24H [facility] Last Admin: 12/23/24 21:13 Dose: 40 mg Documented By: BRENDON Magnesium Hydroxide (Milk Of Magnesia 30 Ml Oral.Susp) 30 ml PO DAILY PRN PRN Reason: Constipation Melatonin (Melatonin 3 Mg Tablet) 6 mg PO BEDTIME PRN PRN Reason: Insomnia Ondansetron HCl (Ondansetron Hcl 4 Mg/2 Ml Vial) 4 mg IVPUSH Q8H PRN PRN Reason: Nausea and Vomiting Risperidone (Risperidone 1 Mg Tablet) 1 mg PO BID [facility] Last Admin: 12/24/24 07:01 Dose: Not Given Documented By: ROSANNA Non-Admin Reason: Patient Refused Labs 11/24/24 04:17 11/24/24 04:17 Assessment and Plan (1) Major neurocognitive disorder: Status: Acute (2) Cognitive impairment: Status: Acute Plan 69yo M with unknown PMH who presented to ED on 11/19/24 complianing of chest pain that was deemed to be non-cardiac Psychiatric evaluation indicated that he does not have capacity due to significant cognitive impairment and paranoid delusions likely secondary to dementia. 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 - UA negative, TSH + B12 normal - per Psychiatry, no capacity to make medical decision; paranoid delusions secondary to dementia - homeless, requires 17/04 care, awaiting guardianship - continue risperidone per Psychiatry HTN - controlled without meds chest pain - appears non-cardiac- repeat EKG without ischemic changes and another set of troponins completely negative; trial of Maalox VTE ppx - enoxaparin dispo - long-term care placement In my clinical judgment, the patient requires continued inpatient hospitalization for the following reasons: placement Quality Stroke Does the patient have a stroke diagnosis?: No VTE Prior VTE?: No VTE Risk Level:: Medical - moderate - high VTE Device Contraindication: Treatment Not Indicated VTE Drug Contraindication: N/A - Med Ordered
[2024-12-24 15:51] VITALS: BP 133/76; PULSE 68; RESP 15; TEMP 36.4; O2SAT 98
--- NOTE | 2024-12-24 18:16 | PC.NURSE ---
Pt is pleasant alert and oriented to self disoriented to time and situation and able to make needs known. Pt does refuse PO meds but accepts SQ Lovenox injection without issues. Pt is independent with meals and hygiene. Has good PO intake eats 100% at most meals. All safety measures in place.
[2024-12-24] MEDS: Enoxaparin Sodium 40 MG/0.4 ML SYRINGE SUBCUT (21:15)
[2024-12-24 23:52] VITALS: BP 134/79; PULSE 52; RESP 16; TEMP 36.8; O2SAT 97
[2024-12-25 07:20] VITALS: BP 123/87; PULSE 81; RESP 16; TEMP 36.3; O2SAT 100
--- NOTE | 2024-12-25 11:03 | MHC.CM.PN ---
Patient continues to await guardianship and LTC placement. Guardianship hearding scheduled for 12/27. CM will continue to follow.
[2024-12-25 15:12] VITALS: BP 117/75; PULSE 65; RESP 18; TEMP 37.1; O2SAT 98
--- NOTE | 2024-12-25 17:42 | HO.PM.IMPN ---
Subjective Subjective Date of Service: 12/25/24 Interval History: Being followed for placement Offers no acute complaints. Review of Systems All other system reviewed and are negative Physical Exam Vital Signs: Vital Signs: Last Vital Signs Temp 98.7 F 12/25/24 15:12 Pulse 65 12/25/24 15:12 Resp 18 12/25/24 15:12 BP 117/75 12/25/24 15:12 Pulse Ox 98 12/25/24 15:12 O2 Del Method Room Air 12/25/24 15:12 BMI result Body Mass Index 21.2 Const: Other: Gen: in no acute distress Lungs: clear to auscultation bilaterally Heart: regular rate and rhythm, no murmurs Abd: soft, non-tender, non-distended Neuro: alert and oriented to self/place [but not town], not to date or situation, ambulatory Psych: impaired insight Objective Data Active Medications Acetaminophen (Acetaminophen 325 Mg Tablet) 650 mg PO Q6H PRN PRN Reason: Pain, Mild 1-3,fever,headache Al Hydroxide/Mg Hydroxide (Magnesium Hydrox/Alum Hydrox 30 Ml Oral.Susp) 15 ml PO Q4H PRN PRN Reason: chest discomfort Calcium Carbonate (Calcium Carbonate 750 Mg Tab.Chew) 750 mg PO Q4H PRN PRN Reason: Heartburn Enoxaparin Sodium (Enoxaparin Sodium 40 Mg/0.4 Ml Syringe) 40 mg SUBCUT Q24H [facility] Last Admin: 12/24/24 21:15 Dose: 40 mg Documented By: BRENDON Magnesium Hydroxide (Milk Of Magnesia 30 Ml Oral.Susp) 30 ml PO DAILY PRN PRN Reason: Constipation Melatonin (Melatonin 3 Mg Tablet) 6 mg PO BEDTIME PRN PRN Reason: Insomnia Ondansetron HCl (Ondansetron Hcl 4 Mg/2 Ml Vial) 4 mg IVPUSH Q8H PRN PRN Reason: Nausea and Vomiting Risperidone (Risperidone 1 Mg Tablet) 1 mg PO BID [facility] Last Admin: 12/25/24 10:27 Dose: Not Given Documented By: CHRISTIN Non-Admin Reason: Patient Refused Labs 11/24/24 04:17 11/24/24 04:17 Assessment and Plan (1) Major neurocognitive disorder: Status: Acute Plan 69yo M with unknown PMH who presented to ED on 11/19/24 complianing of chest pain that was deemed to be non-cardiac Psychiatric evaluation indicated that he does not have capacity due to significant cognitive impairment and paranoid delusions likely secondary to dementia. 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 - UA negative, TSH + B12 normal - per Psychiatry, no capacity to make medical decision; paranoid delusions secondary to dementia - homeless, requires 24/7 care, awaiting guardianship - continue risperidone per Psychiatry HTN - controlled without meds chest pain - appears non-cardiac- repeat EKG without ischemic changes and another set of troponins completely negative; trial of Maalox VTE ppx - enoxaparin dispo - long-term care placement In my clinical judgment, the patient requires continued inpatient hospitalization for the following reasons: placement Quality Stroke Does the patient have a stroke diagnosis?: No VTE Prior VTE?: No VTE Risk Level:: Medical - moderate - high VTE Device Contraindication: Treatment Not Indicated VTE Drug Contraindication: N/A - Med Ordered
[2024-12-25] MEDS: Enoxaparin Sodium 40 MG/0.4 ML SYRINGE SUBCUT (22:39)
[2024-12-25 23:34] VITALS: BP 145/80; PULSE 55; RESP 16; TEMP 36.1; O2SAT 99
[2024-12-26 03:54] VITALS: RESP 18
[2024-12-26 08:00] VITALS: BP 124/79; PULSE 79; RESP 14; TEMP 36.5; O2SAT 98
--- NOTE | 2024-12-26 10:47 | P.PNIM_ITS ---
Subjective Subjective Date of Service: 12/26/24 Interval History: Being followed for placement Offers no acute complaints, no acute events overnight. Review of Systems All other system reviewed and are negative. Physical Exam 2 Vital Signs: Vital Signs: Last Vital Signs Temp 97.7 F 12/26/24 08:00 Pulse 79 12/26/24 08:00 Resp 14 12/26/24 08:00 BP 124/79 12/26/24 08:00 Pulse Ox 98 12/26/24 08:00 O2 Del Method Room Air 12/26/24 08:00 BMI result Body Mass Index 21.2 Const: Other: Gen: in no acute distress Lungs: clear to auscultation bilaterally Heart: regular rate and rhythm, no murmurs Abd: soft, non-tender, non-distended Neuro: alert and oriented to self/place [but not town], not to date or situation, ambulatory Psych: impaired insight Objective Data Active Medications Acetaminophen (Acetaminophen 325 Mg Tablet) 650 mg PO Q6H PRN PRN Reason: Pain, Mild 1-3,fever,headache Al Hydroxide/Mg Hydroxide (Magnesium Hydrox/Alum Hydrox 30 Ml Oral.Susp) 15 ml PO Q4H PRN PRN Reason: chest discomfort Calcium Carbonate (Calcium Carbonate 750 Mg Tab.Chew) 750 mg PO Q4H PRN PRN Reason: Heartburn Enoxaparin Sodium (Enoxaparin Sodium 40 Mg/0.4 Ml Syringe) 40 mg SUBCUT Q24H [facility] Last Admin: 12/25/24 22:39 Dose: 40 mg Documented By: REBECCA Magnesium Hydroxide (Milk Of Magnesia 30 Ml Oral.Susp) 30 ml PO DAILY PRN PRN Reason: Constipation Melatonin (Melatonin 3 Mg Tablet) 6 mg PO BEDTIME PRN PRN Reason: Insomnia Ondansetron HCl (Ondansetron Hcl 4 Mg/2 Ml Vial) 4 mg IVPUSH Q8H PRN PRN Reason: Nausea and Vomiting Risperidone (Risperidone 1 Mg Tablet) 1 mg PO BID [facility] Last Admin: 12/26/24 08:04 Dose: Not Given Documented By: TIM Non-Admin Reason: Patient Refused Labs 11/24/24 04:17 11/24/24 04:17 Assessment and Plan (1) Major neurocognitive disorder: Status: Acute Plan 69yo M with unknown PMH who presented to ED on 11/19/24 complianing of chest pain that was deemed to be non-cardiac Psychiatric evaluation indicated that he does not have capacity due to significant cognitive impairment and paranoid delusions likely secondary to dementia. 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 - UA negative, TSH + B12 normal - per Psychiatry, no capacity to make medical decision; paranoid delusions secondary to dementia - homeless, requires 17/04 care, awaiting guardianship - continue risperidone per Psychiatry HTN - controlled without meds chest pain - appears non-cardiac- repeat EKG without ischemic changes and another set of troponins completely negative; trial of Maalox VTE ppx - enoxaparin dispo - long-term care placement In my clinical judgment, the patient requires continued inpatient hospitalization for the following reasons: placement Quality Stroke Does the patient have a stroke diagnosis?: No VTE Prior VTE?: No VTE Risk Level:: Medical - moderate - high VTE Device Contraindication: Treatment Not Indicated VTE Drug Contraindication: N/A - Med Ordered
[2024-12-26 15:22] VITALS: BP 119/72; PULSE 67; RESP 16; TEMP 37.1; O2SAT 97
[2024-12-26] MEDS: Enoxaparin Sodium 40 MG/0.4 ML SYRINGE SUBCUT (22:36)
[2024-12-26 23:35] VITALS: BP 125/71; PULSE 64; RESP 16; TEMP 36.9; O2SAT 99
[2024-12-26] MEDS: Eye Irrigation Solution 118 ML IRRIG.SOLN 1 APPL EYE-BOTH (23:38)
[2024-12-27 07:07] VITALS: BP 122/78; PULSE 54; RESP 16; TEMP 37.1; O2SAT 96
--- NOTE | 2024-12-27 11:55 | P.PNIM_ITS ---
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. Offers no acute medical complaints. Review of Systems All other system reviewed and negative. Physical Exam 2 Vital Signs: Vital Signs: Last Vital Signs Temp 98.7 F 12/27/24 07:07 Pulse 54 12/27/24 07:07 Resp 16 12/27/24 07:07 BP 122/78 12/27/24 07:07 Pulse Ox 96 12/27/24 07:07 O2 Del Method Room Air 12/27/24 07:07 BMI result Body Mass Index 21.2 Const: Other: Gen: in no acute distress Lungs: clear to auscultation bilaterally Heart: regular rate and rhythm, no murmurs Abd: soft, non-tender, non-distended Neuro: alert and oriented to self/place [but not town], not to date or situation, ambulatory Psych: impaired insight Objective Data Active Medications Acetaminophen (Acetaminophen 325 Mg Tablet) 650 mg PO Q6H PRN PRN Reason: Pain, Mild 1-3,fever,headache Al Hydroxide/Mg Hydroxide (Magnesium Hydrox/Alum Hydrox 30 Ml Oral.Susp) 15 ml PO Q4H PRN PRN Reason: chest discomfort Calcium Carbonate (Calcium Carbonate 750 Mg Tab.Chew) 750 mg PO Q4H PRN PRN Reason: Heartburn Enoxaparin Sodium (Enoxaparin Sodium 40 Mg/0.4 Ml Syringe) 40 mg SUBCUT Q24H [facility] Last Admin: 12/26/24 22:36 Dose: 40 mg Documented By: ANTOINC Magnesium Hydroxide (Milk Of Magnesia 30 Ml Oral.Susp) 30 ml PO DAILY PRN PRN Reason: Constipation Melatonin (Melatonin 3 Mg Tablet) 6 mg PO BEDTIME PRN PRN Reason: Insomnia Ondansetron HCl (Ondansetron Hcl 4 Mg/2 Ml Vial) 4 mg IVPUSH Q8H PRN PRN Reason: Nausea and Vomiting Risperidone (Risperidone 1 Mg Tablet) 1 mg PO BID [facility] Last Admin: 12/27/24 08:01 Dose: Not Given Documented By: COUGHLM Non-Admin Reason: Patient Refused Labs 11/24/24 04:17 11/24/24 04:17 Assessment and Plan (1) Major neurocognitive disorder: Status: Acute Plan 69yo M with unknown PMH who presented to ED on 11/19/24 complianing of chest pain that was deemed to be non-cardiac Psychiatric evaluation indicated that he does not have capacity due to significant cognitive impairment and paranoid delusions likely secondary to dementia. 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 - UA negative, TSH + B12 normal - per Psychiatry, no capacity to make medical decision; paranoid delusions secondary to dementia - homeless, requires 24/ care, awaiting guardianship - will discontinue risperidone started by Psychiatry for paranoid delusions likely secondary to dementia since patient refusing to take this medication stating he is not cuckoo. - follow closely for paranoia and behavioral issues HTN - controlled without meds was on Norvasc in the past chest pain - appears non-cardiac- repeat EKG without ischemic changes and another set of troponins completely negative; trial of Maalox VTE ppx - enoxaparin dispo - long-term care placement In my clinical judgment, the patient requires continued inpatient hospitalization for the following reasons: placement Quality Stroke Does the patient have a stroke diagnosis?: No VTE Prior VTE?: No VTE Risk Level:: Medical - moderate - high VTE Device Contraindication: Treatment Not Indicated VTE Drug Contraindication: N/A - Med Ordered
--- NOTE | 2024-12-27 13:30 | MHC.CM.PN ---
Guardianship and Chang hearing scheduled today, 12/27/24. DP LTC via BLS.
[2024-12-27 15:28] VITALS: BP 145/85; PULSE 69; RESP 18; TEMP 37.1; O2SAT 99
[2024-12-27] MEDS: Enoxaparin Sodium 40 MG/0.4 ML SYRINGE SUBCUT (22:41)
[2024-12-27 23:25] VITALS: BP 121/68; PULSE 62; RESP 18; TEMP 36.6; O2SAT 98
[2024-12-28 07:11] VITALS: BP 130/73; PULSE 60; RESP 18; TEMP 36.6; O2SAT 99
[2024-12-28 15:38] VITALS: BP 121/64; PULSE 66; RESP 18; TEMP 36.9; O2SAT 97
--- NOTE | 2024-12-28 16:01 | HO.PM.IMPN ---
Subjective Subjective Date of Service: 12/28/24 Interval History: Seen and examined this morning Follow-up for placement Patient ambulating in No specific complaints Review of Systems Review of Systems: Yes all other systems are reviewed and are negative Constitutional Constitutional: Denies fever(s) Cardiovascular Cardiovascular: Denies chest pain Gastrointestinal Gastrointestinal: Denies abdominal pain Physical Exam Vital Signs: Vital Signs: Last Vital Signs Temp 98.4 F 12/28/24 15:38 Pulse 66 12/28/24 15:38 Resp 18 12/28/24 15:38 BP 121/64 12/28/24 15:38 Pulse Ox 97 12/28/24 15:38 O2 Del Method Room Air 12/28/24 15:38 BMI result Body Mass Index 21.2 Const: General: cooperative, comfortable, no acute distress, alert and awake Nutritional Appearance: thin Resp: Effort & Inspection: normal respiratory effort, able to speak in complete sentences, no respiratory distress and no use of accessory muscles Neuro: General: moves all extremities Gait exam (Neuro): Normal gait present Objective Data Active Medications Acetaminophen (Acetaminophen 325 Mg Tablet) 650 mg PO Q6H PRN PRN Reason: Pain, Mild 1-3,fever,headache Al Hydroxide/Mg Hydroxide (Magnesium Hydrox/Alum Hydrox 30 Ml Oral.Susp) 15 ml PO Q4H PRN PRN Reason: chest discomfort Calcium Carbonate (Calcium Carbonate 750 Mg Tab.Chew) 750 mg PO Q4H PRN PRN Reason: Heartburn Enoxaparin Sodium (Enoxaparin Sodium 40 Mg/0.4 Ml Syringe) 40 mg SUBCUT Q24H [facility] Last Admin: 12/27/24 22:41 Dose: 40 mg Documented By: KRISTIN Magnesium Hydroxide (Milk Of Magnesia 30 Ml Oral.Susp) 30 ml PO DAILY PRN PRN Reason: Constipation Melatonin (Melatonin 3 Mg Tablet) 6 mg PO BEDTIME PRN PRN Reason: Insomnia Ondansetron HCl (Ondansetron Hcl 4 Mg/2 Ml Vial) 4 mg IVPUSH Q8H PRN PRN Reason: Nausea and Vomiting Labs 11/24/24 04:17 11/24/24 04:17 Assessment and Plan (1) Major neurocognitive disorder: Status: Acute Plan 69yo M with unknown PMH who presented to ED on 11/19/24 complianing of chest pain that was deemed to be non-cardiac Psychiatric evaluation indicated that he does not have capacity due to significant cognitive impairment and paranoid delusions likely secondary to dementia. 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 - follow closely for paranoia and behavioral issues HTN - controlled without meds was on Norvasc in the past chest pain - appears non-cardiac- repeat EKG without ischemic changes and another set of troponins completely negative; trial of Maalox VTE ppx - enoxaparin dispo - long-term care placement In my clinical judgment, the patient requires continued inpatient hospitalization for the following reasons: placement Quality Stroke Does the patient have a stroke diagnosis?: No VTE Prior VTE?: No VTE Risk Level:: Medical - moderate - high VTE Device Contraindication: Treatment Not Indicated VTE Drug Contraindication: N/A - Med Ordered
[2024-12-28] MEDS: Enoxaparin Sodium 40 MG/0.4 ML SYRINGE SUBCUT (20:59)
[2024-12-28] MEDS: Eye Irrigation Solution 118 ML IRRIG.SOLN 1 APPL EYE-BOTH (22:00)
[2024-12-28 23:45] VITALS: BP 128/77; PULSE 55; RESP 16; TEMP 36.4; O2SAT 98
--- NOTE | 2024-12-29 04:01 | PC.NURSE ---
Patient noted with no significant changes to his routine, alert, pleasant, Independent in his room, voiding in BR, denied pain, accepted lovenox injection,and also enjoyed a snack. Patient did speak of dry eyes and looking for drops as he had previously, Hospitalist alerted and order given, see MAR, patient prefers to be monitored and apply drops himself, which he did with relief. Noted watched some TV and then slept well in long naps. VSS.
[2024-12-29 08:53] VITALS: BP 125/73; PULSE 65; RESP 18; TEMP 36.8; O2SAT 98
--- NOTE | 2024-12-29 14:14 | PC.NURSE ---
Pt is pleasant alert and oriented to self disoriented to time and situation and able to make needs known. Pt does refuse PO meds but accepts SQ Lovenox injection without issues. Pt is independent with meals and hygiene. Has good PO intake at most meals. All safety measures in place.
--- NOTE | 2024-12-29 15:23 | HO.PM.IMPN ---
Subjective Subjective Date of Service: 12/29/24 Interval History: seen and examined this morning follow up placement resting comfortably in bed requesting eye drops for dry eyes Review of Systems Review of Systems: Yes all other systems are reviewed and are negative Constitutional Constitutional: Denies chills and Denies fever(s) Physical Exam Vital Signs: Vital Signs: Last Vital Signs Temp 98.2 F 12/29/24 08:53 Pulse 65 12/29/24 08:53 Resp 18 12/29/24 08:53 BP 125/73 12/29/24 08:53 Pulse Ox 98 12/29/24 08:53 O2 Del Method Room Air 12/29/24 08:53 BMI result Body Mass Index 21.2 Const: General: cooperative, comfortable, no acute distress, alert and awake Nutritional Appearance: thin Resp: Effort & Inspection: normal respiratory effort, able to speak in complete sentences, no respiratory distress and no use of accessory muscles Neuro: General: moves all extremities Gait exam (Neuro): Normal gait present Objective Data Active Medications Acetaminophen (Acetaminophen 325 Mg Tablet) 650 mg PO Q6H PRN PRN Reason: Pain, Mild 1-3,fever,headache Al Hydroxide/Mg Hydroxide (Magnesium Hydrox/Alum Hydrox 30 Ml Oral.Susp) 15 ml PO Q4H PRN PRN Reason: chest discomfort Artificial Tears (Artificial Tears 15 Ml Drops) 1 drop EYE-BOTH Q4H PRN PRN Reason: Dry Eyes Calcium Carbonate (Calcium Carbonate 750 Mg Tab.Chew) 750 mg PO Q4H PRN PRN Reason: Heartburn Enoxaparin Sodium (Enoxaparin Sodium 40 Mg/0.4 Ml Syringe) 40 mg SUBCUT Q24H [facility] Last Admin: 12/28/24 20:59 Dose: 40 mg Documented By: KRISTIN Magnesium Hydroxide (Milk Of Magnesia 30 Ml Oral.Susp) 30 ml PO DAILY PRN PRN Reason: Constipation Melatonin (Melatonin 3 Mg Tablet) 6 mg PO BEDTIME PRN PRN Reason: Insomnia Ondansetron HCl (Ondansetron Hcl 4 Mg/2 Ml Vial) 4 mg IVPUSH Q8H PRN PRN Reason: Nausea and Vomiting Labs 11/24/24 04:17 11/24/24 04:17 Assessment and Plan (1) Major neurocognitive disorder: Status: Acute Plan 69yo M with unknown PMH who presented to ED on 11/19/24 complianing of chest pain that was deemed to be non-cardiac Psychiatric evaluation indicated that he does not have capacity due to significant cognitive impairment and paranoid delusions likely secondary to dementia. 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 - follow closely for paranoia and behavioral issues HTN - controlled without meds was on Norvasc in the past chest pain - appears non-cardiac- repeat EKG without ischemic changes and another set of troponins completely negative; trial of Maalox VTE ppx - enoxaparin dispo - long-term care placement In my clinical judgment, the patient requires continued inpatient hospitalization for the following reasons: placement Quality Stroke Does the patient have a stroke diagnosis?: No VTE Prior VTE?: No VTE Risk Level:: Medical - moderate - high VTE Device Contraindication: Treatment Not Indicated VTE Drug Contraindication: N/A - Med Ordered
[2024-12-29 15:34] VITALS: BP 139/68; PULSE 68; RESP 18; TEMP 37.1; O2SAT 98
[2024-12-29] MEDS: Enoxaparin Sodium 40 MG/0.4 ML SYRINGE SUBCUT (20:20)
[2024-12-30] VITALS: BP 130/77; PULSE 56; RESP 18; TEMP 36.7; O2SAT 97
--- NOTE | 2024-12-30 03:02 | PC.NURSE ---
Pt is A+O,vague cooperative.Up ad isaac in room.Denies pain.Offers no complaints.
[2024-12-30 07:26] VITALS: BP 127/82; PULSE 67; TEMP 36.5; O2SAT 97
[2024-12-30 07:48] VITALS: BP 127/82; PULSE 67; TEMP 36.5; O2SAT 97
--- NOTE | 2024-12-30 08:56 | P.PNIM_ITS ---
Subjective Subjective Date of Service: 12/30/24 Interval History: seen and examined this morning follow up placement sitting up eating breakfast upset about his situation and paranoid about his family Review of Systems Review of Systems: Yes all other systems are reviewed and are negative Constitutional Constitutional: Denies chills and Denies fever(s) Physical Exam 2 Vital Signs: Vital Signs: Last Vital Signs Temp 97.7 F 12/30/24 07:48 Pulse 67 12/30/24 07:48 Resp 18 12/30/24 00:00 BP 127/82 12/30/24 07:48 Pulse Ox 97 12/30/24 07:48 O2 Del Method Room Air 12/30/24 07:48 BMI result Body Mass Index 21.2 Appearing in no acute distress lung sounds are clear to auscultation heart regular rate rhythm, clear S1, S2 positive bowel sounds, abdomen is soft, nontender neuro patient is alert x3, no focal deficits Objective Data Active Medications Acetaminophen (Acetaminophen 325 Mg Tablet) 650 mg PO Q6H PRN PRN Reason: Pain, Mild 1-3,fever,headache Al Hydroxide/Mg Hydroxide (Magnesium Hydrox/Alum Hydrox 30 Ml Oral.Susp) 15 ml PO Q4H PRN PRN Reason: chest discomfort Artificial Tears (Artificial Tears 15 Ml Drops) 1 drop EYE-BOTH Q4H PRN PRN Reason: Dry Eyes Calcium Carbonate (Calcium Carbonate 750 Mg Tab.Chew) 750 mg PO Q4H PRN PRN Reason: Heartburn Enoxaparin Sodium (Enoxaparin Sodium 40 Mg/0.4 Ml Syringe) 40 mg SUBCUT Q24H [facility] Last Admin: 12/29/24 20:20 Dose: 40 mg Documented By: STEPHAN Magnesium Hydroxide (Milk Of Magnesia 30 Ml Oral.Susp) 30 ml PO DAILY PRN PRN Reason: Constipation Melatonin (Melatonin 3 Mg Tablet) 6 mg PO BEDTIME PRN PRN Reason: Insomnia Ondansetron HCl (Ondansetron Hcl 4 Mg/2 Ml Vial) 4 mg IVPUSH Q8H PRN PRN Reason: Nausea and Vomiting Labs 11/24/24 04:17 11/24/24 04:17 Assessment and Plan (1) Major neurocognitive disorder: Status: Acute Plan 69yo M with unknown PMH who presented to ED on 11/19/24 complianing of chest pain that was deemed to be non-cardiac. Psychiatric evaluation indicated that he does not have capacity due to significant cognitive impairment and paranoid delusions likely secondary to dementia. Given that pt will require LTC placement involving guardianship and potentially Downing orders, pt was admitted to the hospitalist service Unspecified dementia head CT showed microvascular changes and atrophy likely, mixed etiology from vascular and Alzheimer's dementia UA negative, TSH + B12 normal per Psychiatry, no capacity to make medical decision; paranoid delusions secondary to dementia homeless, requires 24/7 care, awaiting guardianship will discontinue risperidone started by Psychiatry for paranoid delusions likely secondary to dementia since patient refusing to take this medication stating he is not cuckoo. follow closely for paranoia and behavioral issues HTN controlled without meds was on Norvasc in the past chest pain appears non-cardiac repeat EKG without ischemic changes and another set of troponins completely negative trial of Maalox VTE ppx enoxaparin dispo long-term care placement In my clinical judgment, the patient requires continued inpatient hospitalization for the following reasons: placement Quality Stroke Does the patient have a stroke diagnosis?: No VTE Prior VTE?: No VTE Risk Level:: Medical - moderate - high VTE Device Contraindication: Treatment Not Indicated VTE Drug Contraindication: N/A - Med Ordered
--- NOTE | 2024-12-30 12:47 | MHC.CM.PN ---
EMR REVIEWED AND PER MD ROUNDS, PT REMAINS MEDICALLY CLEARED. CM AWAITS GUARDIANSHIP/ALYSE HADDAD
[2024-12-30 15:11] VITALS: BP 124/71; PULSE 62; RESP 16; TEMP 36.8; O2SAT 96
[2024-12-30] MEDS: Enoxaparin Sodium 40 MG/0.4 ML SYRINGE SUBCUT (20:14)
[2024-12-30 23:21] VITALS: BP 146/81; PULSE 60; RESP 18; TEMP 36.3; O2SAT 96
[2024-12-31 07:30] VITALS: BP 127/78; PULSE 56; RESP 16; TEMP 36.1; O2SAT 97
--- NOTE | 2024-12-31 08:18 | P.PNIM_ITS ---
Subjective Subjective Date of Service: 12/31/24 Interval History: seen and examined this morning follow up placement sitting up eating breakfast upset about his situation and paranoid about his family Review of Systems Review of Systems: Yes all other systems are reviewed and are negative Constitutional Constitutional: Denies chills and Denies fever(s) Physical Exam 2 Vital Signs: Vital Signs: Last Vital Signs Temp 97.0 F 12/31/24 07:30 Pulse 56 12/31/24 07:30 Resp 16 12/31/24 07:30 BP 127/78 12/31/24 07:30 Pulse Ox 97 12/31/24 07:30 O2 Del Method Room Air 12/31/24 07:30 BMI result Body Mass Index 21.2 Appearing in no acute distress lung sounds are clear to auscultation heart regular rate rhythm, clear S1, S2 positive bowel sounds, abdomen is soft, nontender neuro patient is alert, confused Objective Data Active Medications Acetaminophen (Acetaminophen 325 Mg Tablet) 650 mg PO Q6H PRN PRN Reason: Pain, Mild 1-3,fever,headache Al Hydroxide/Mg Hydroxide (Magnesium Hydrox/Alum Hydrox 30 Ml Oral.Susp) 15 ml PO Q4H PRN PRN Reason: chest discomfort Artificial Tears (Artificial Tears 15 Ml Drops) 1 drop EYE-BOTH Q4H PRN PRN Reason: Dry Eyes Calcium Carbonate (Calcium Carbonate 750 Mg Tab.Chew) 750 mg PO Q4H PRN PRN Reason: Heartburn Enoxaparin Sodium (Enoxaparin Sodium 40 Mg/0.4 Ml Syringe) 40 mg SUBCUT Q24H [facility] Last Admin: 12/30/24 20:14 Dose: 40 mg Documented By: STEPHAN Magnesium Hydroxide (Milk Of Magnesia 30 Ml Oral.Susp) 30 ml PO DAILY PRN PRN Reason: Constipation Melatonin (Melatonin 3 Mg Tablet) 6 mg PO BEDTIME PRN PRN Reason: Insomnia Ondansetron HCl (Ondansetron Hcl 4 Mg/2 Ml Vial) 4 mg IVPUSH Q8H PRN PRN Reason: Nausea and Vomiting Labs 11/24/24 04:17 11/24/24 04:17 Assessment and Plan (1) Major neurocognitive disorder: Status: Acute Plan 69yo M with unknown PMH who presented to ED on 11/19/24 complianing of chest pain that was deemed to be non-cardiac. Psychiatric evaluation indicated that he does not have capacity due to significant cognitive impairment and paranoid delusions likely secondary to dementia. 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 follow closely for paranoia and behavioral issues HTN controlled without meds was on Norvasc in the past Chest pain appears non-cardiac repeat EKG without ischemic changes and another set of troponins completely negative prn Maalox VTE ppx enoxaparin dispo long-term care placement In my clinical judgment, the patient requires continued inpatient hospitalization for the following reasons: placement Quality Stroke Does the patient have a stroke diagnosis?: No VTE Prior VTE?: No VTE Risk Level:: Medical - moderate - high VTE Device Contraindication: Treatment Not Indicated VTE Drug Contraindication: N/A - Med Ordered
[2024-12-31 16:03] VITALS: BP 128/80; PULSE 65; RESP 18; TEMP 36.6; O2SAT 98
[2024-12-31] MEDS: Enoxaparin Sodium 40 MG/0.4 ML SYRINGE SUBCUT (20:50)
[2024-12-31] MEDS: Artificial Tears 15 ML DROPS 1 DROP EYE-BOTH (23:23)
[2024-12-31 23:34] VITALS: BP 137/71; PULSE 58; RESP 18; TEMP 36.6; O2SAT 98
--- NOTE | 2025-01-01 04:01 | PC.NURSE ---
Patient is pleasant, alert, cooperative, able to make needs known. Independent in his room, sleeping well tonight.
[2025-01-01 07:54] VITALS: BP 135/74; PULSE 70; RESP 18; TEMP 36.1; O2SAT 96
--- NOTE | 2025-01-01 08:42 | HO.PM.IMPN ---
Subjective Subjective Date of Service: 01/01/25 Interval History: seen and examined this morning follow up placement sitting up eating breakfast upset about his situation and paranoid about his family Review of Systems Review of Systems: Yes all other systems are reviewed and are negative Constitutional Constitutional: Denies chills and Denies fever(s) Physical Exam Vital Signs: Vital Signs: Last Vital Signs Temp 96.9 F 01/01/25 07:54 Pulse 70 01/01/25 07:54 Resp 18 01/01/25 07:54 BP 135/74 01/01/25 07:54 Pulse Ox 96 01/01/25 07:54 O2 Del Method Room Air 01/01/25 07:54 BMI result Body Mass Index 21.2 Appearing in no acute distress, pleasant, but suspicious lung sounds are clear to auscultation heart regular rate rhythm, clear S1, S2 positive bowel sounds, abdomen is soft, nontender neuro patient is alert Objective Data Active Medications Acetaminophen (Acetaminophen 325 Mg Tablet) 650 mg PO Q6H PRN PRN Reason: Pain, Mild 1-3,fever,headache Al Hydroxide/Mg Hydroxide (Magnesium Hydrox/Alum Hydrox 30 Ml Oral.Susp) 15 ml PO Q4H PRN PRN Reason: chest discomfort Artificial Tears (Artificial Tears 15 Ml Drops) 1 drop EYE-BOTH Q4H PRN PRN Reason: Dry Eyes Last Admin: 12/31/24 23:23 Dose: 1 drop Documented By: MORENITA Calcium Carbonate (Calcium Carbonate 750 Mg Tab.Chew) 750 mg PO Q4H PRN PRN Reason: Heartburn Enoxaparin Sodium (Enoxaparin Sodium 40 Mg/0.4 Ml Syringe) 40 mg SUBCUT Q24H [facility] Last Admin: 12/31/24 20:50 Dose: 40 mg Documented By: MORENITA Magnesium Hydroxide (Milk Of Magnesia 30 Ml Oral.Susp) 30 ml PO DAILY PRN PRN Reason: Constipation Melatonin (Melatonin 3 Mg Tablet) 6 mg PO BEDTIME PRN PRN Reason: Insomnia Ondansetron HCl (Ondansetron Hcl 4 Mg/2 Ml Vial) 4 mg IVPUSH Q8H PRN PRN Reason: Nausea and Vomiting Labs 11/24/24 04:17 11/24/24 04:17 Assessment and Plan (1) Major neurocognitive disorder: Status: Acute Plan 69yo M with unknown PMH who presented to ED on 11/19/24 complianing of chest pain that was deemed to be non-cardiac. Psychiatric evaluation indicated that he does not have capacity due to significant cognitive impairment and paranoid delusions likely secondary to dementia. Given that pt will require LTC placement involving guardianship and potentially Downing orders, pt was admitted to the hospitalist service Unspecified dementia head CT showed microvascular changes and atrophy likely, mixed etiology from vascular and Alzheimer's dementia UA negative, TSH + B12 normal per Psychiatry, no capacity to make medical decision; paranoid delusions secondary to dementia homeless, requires 24/ care, awaiting guardianship risperidone started by Psychiatry for paranoid delusions likely secondary to dementia, stopped d/t patient refusing to take this medication stating he is not cuckoo . follow closely for paranoia and behavioral issues HTN controlled without meds was on Norvasc in the past Chest pain appears non-cardiac repeat EKG without ischemic changes and another set of troponins completely negative prn Maalox VTE ppx enoxaparin dispo long-term care placement In my clinical judgment, the patient requires continued inpatient hospitalization for the following reasons: placement Quality Stroke Does the patient have a stroke diagnosis?: No VTE Prior VTE?: No VTE Risk Level:: Medical - moderate - high VTE Device Contraindication: Treatment Not Indicated VTE Drug Contraindication: N/A - Med Ordered
[2025-01-01] MEDS: Artificial Tears 15 ML DROPS 1 DROP EYE-BOTH ×2 (08:47→21:25)
[2025-01-01 09:14] LABS: Anion Gap 9 (12-20); Blood Urea Nitrogen 14 mg/dL (9-16); Calcium 9.8 mg/dL (8.4-10.2); Carbon Dioxide 30 mmol/L (22-29); Chloride 105 mmol/L (96-108); Creatinine Clr Calc Pharmacy 73.1; Estimated Glomerular Filt Rate > 60; Glucose Random 119 mg/dL (60-115); Hemoglobin 13.9 g/dl (14.0-18.0); Mean Corpuscular HGB Conc 33.1 g/dl (31.0-36.0); Mean Corpuscular Hemoglobin 29.4 pg (27.0-33.0); Mean Corpuscular Volume 88.8 fL (80.0-98.0); Mean Platelet Volume 10.8 fL (9.4-12.4); Platelet Count 193 X10*3/uL (160-400); Potassium 4.2 mmol/L (3.3-5.1); Red Blood Count 4.73 X10*6/uL (4.60-5.80); Red Cell Distribution Width 11.9 % (11.0-16.0); Sodium 140 mmol/L (135-145); White Blood Count 4.9 X10*3/uL (4.8-10.8)
--- NOTE | 2025-01-01 13:03 | MHC.CM.PN ---
EMR REVIEWED . PER MD ROUNDS, PT REMAINS MEDICALLY CLEARED. AWAITING GUARDIANSHIP/[facility] ORDER PPW FOR DC DISPO.
[2025-01-01 16:10] VITALS: BP 131/81; PULSE 72; RESP 18; TEMP 36.3; O2SAT 99
[2025-01-01] MEDS: Enoxaparin Sodium 40 MG/0.4 ML SYRINGE SUBCUT (21:25)
[2025-01-01 22:56] VITALS: BP 131/76; PULSE 55; RESP 18; TEMP 36.3; O2SAT 99
[2025-01-02 07:24] VITALS: BP 143/83; PULSE 64; RESP 18; TEMP 36; O2SAT 98
--- NOTE | 2025-01-02 12:55 | MHC.CM.PN ---
CM CONTINUES TO AWAIT GUARDIANSHIP/ALYSE PPW FROM THE COURT. CM REACHED OUT TO DAUGHTER EDWINA ([phone]) LEFT MESSAGE TO DISCUSS DC OPTIONS, REQUESTED RET'N CALL.
[2025-01-02 15:37] VITALS: BP 122/69; PULSE 67; RESP 18; TEMP 36.3; O2SAT 95
--- NOTE | 2025-01-02 16:01 | P.PNIM_ITS ---
Subjective Subjective Date of Service: 01/02/25 Interval History: seen and examined this morning follow up for placement no overnight events no specific complaints this mornign Review of Systems Review of Systems: Yes all other systems are reviewed and are negative Constitutional Constitutional: Denies chills Cardiovascular Cardiovascular: Denies chest pain Gastrointestinal Gastrointestinal: Denies abdominal pain Physical Exam 2 Vital Signs: Vital Signs: Last Vital Signs Temp 97.3 F 01/02/25 15:37 Pulse 67 01/02/25 15:37 Resp 18 01/02/25 15:37 BP 122/69 01/02/25 15:37 Pulse Ox 95 01/02/25 15:37 O2 Del Method Room Air 01/02/25 15:37 BMI result Body Mass Index 21.2 Const: General: cooperative, comfortable, no acute distress, alert and awake Nutritional Appearance: thin Resp: Effort & Inspection: normal respiratory effort, able to speak in complete sentences, no respiratory distress and no use of accessory muscles Neuro: General: moves all extremities Gait exam (Neuro): Normal gait present Objective Data Active Medications Acetaminophen (Acetaminophen 325 Mg Tablet) 650 mg PO Q6H PRN PRN Reason: Pain, Mild 1-3,fever,headache Al Hydroxide/Mg Hydroxide (Magnesium Hydrox/Alum Hydrox 30 Ml Oral.Susp) 15 ml PO Q4H PRN PRN Reason: chest discomfort Artificial Tears (Artificial Tears 15 Ml Drops) 1 drop EYE-BOTH Q4H PRN PRN Reason: Dry Eyes Last Admin: 01/01/25 21:25 Dose: 1 drop Documented By: MORENITA Calcium Carbonate (Calcium Carbonate 750 Mg Tab.Chew) 750 mg PO Q4H PRN PRN Reason: Heartburn Enoxaparin Sodium (Enoxaparin Sodium 40 Mg/0.4 Ml Syringe) 40 mg SUBCUT Q24H [facility] Last Admin: 01/01/25 21:25 Dose: 40 mg Documented By: MORENITA Magnesium Hydroxide (Milk Of Magnesia 30 Ml Oral.Susp) 30 ml PO DAILY PRN PRN Reason: Constipation Melatonin (Melatonin 3 Mg Tablet) 6 mg PO BEDTIME PRN PRN Reason: Insomnia Ondansetron HCl (Ondansetron Hcl 4 Mg/2 Ml Vial) 4 mg IVPUSH Q8H PRN PRN Reason: Nausea and Vomiting Labs 01/01/25 08:53 01/01/25 08:53 Assessment and Plan (1) Major neurocognitive disorder: Status: Acute Plan 69yo M with unknown PMH who presented to ED on 11/19/24 complianing of chest pain that was deemed to be non-cardiac. Psychiatric evaluation indicated that he does not have capacity due to significant cognitive impairment and paranoid delusions likely secondary to dementia. Given that pt will require LTC placement involving guardianship and potentially Downing orders, pt was admitted to the hospitalist service Unspecified dementia head CT showed microvascular changes and atrophy likely, mixed etiology from vascular and Alzheimer's dementia UA negative, TSH + B12 normal per Psychiatry, no capacity to make medical decision; paranoid delusions secondary to dementia homeless, requires 17/04 care, awaiting guardianship risperidone started by Psychiatry for paranoid delusions likely secondary to dementia, stopped d/t patient refusing to take this medication stating he is not cuckoo . follow closely for paranoia and behavioral issues HTN controlled without meds was on Norvasc in the past Chest pain appears non-cardiac repeat EKG without ischemic changes and another set of troponins completely negative prn Maalox VTE ppx enoxaparin dispo long-term care placement In my clinical judgment, the patient requires continued inpatient hospitalization for the following reasons: placement Quality Stroke Does the patient have a stroke diagnosis?: No VTE Prior VTE?: No VTE Risk Level:: Medical - moderate - high VTE Device Contraindication: Treatment Not Indicated VTE Drug Contraindication: N/A - Med Ordered
[2025-01-02] MEDS: Enoxaparin Sodium 40 MG/0.4 ML SYRINGE SUBCUT (21:20)
[2025-01-02] MEDS: Artificial Tears 15 ML DROPS 1 DROP EYE-BOTH (21:20)
[2025-01-02 23:17] VITALS: BP 117/71; PULSE 55; RESP 16; TEMP 36.4; O2SAT 95
[2025-01-03 07:33] VITALS: BP 129/73; PULSE 57; RESP 14; TEMP 36.4; O2SAT 98
--- NOTE | 2025-01-03 14:07 | MHC.CM.PN ---
EMR REVIEWED AND PER MD ROUNDS, PT REMAINS MEDICALLY CLEARED. CM CONTINUES TO AWAIT GUARDIANSHIP/ALYSE PPW FOR LTC PLACEMENT. [facility] WORKING ON CONVERTING THE MH TO A LTC PLAN. CM LEFT MESSAGE FOR DAUGHTER EDWINA, AWAITING RETURN CALL.
--- NOTE | 2025-01-03 14:52 | P.PNIM_ITS ---
Subjective Subjective Date of Service: 01/03/25 Interval History: seen and examined this morning follow up for placement no overnight events Review of Systems Review of Systems: Yes all other systems are reviewed and are negative Constitutional Constitutional: Denies chills and Denies fever(s) Cardiovascular Cardiovascular: Denies chest pain Physical Exam 2 Vital Signs: Vital Signs: Last Vital Signs Temp 97.6 F 01/03/25 07:33 Pulse 57 01/03/25 07:33 Resp 14 01/03/25 07:33 BP 129/73 01/03/25 07:33 Pulse Ox 98 01/03/25 07:33 O2 Del Method Room Air 01/03/25 07:33 BMI result Body Mass Index 21.2 Const: General: cooperative, comfortable, no acute distress, alert and awake Nutritional Appearance: thin Resp: Effort & Inspection: normal respiratory effort, able to speak in complete sentences, no respiratory distress and no use of accessory muscles Neuro: General: moves all extremities Gait exam (Neuro): Normal gait present Objective Data Active Medications Acetaminophen (Acetaminophen 325 Mg Tablet) 650 mg PO Q6H PRN PRN Reason: Pain, Mild 1-3,fever,headache Al Hydroxide/Mg Hydroxide (Magnesium Hydrox/Alum Hydrox 30 Ml Oral.Susp) 15 ml PO Q4H PRN PRN Reason: chest discomfort Artificial Tears (Artificial Tears 15 Ml Drops) 1 drop EYE-BOTH Q4H PRN PRN Reason: Dry Eyes Last Admin: 01/02/25 21:20 Dose: 1 drop Documented By: MORENITA Calcium Carbonate (Calcium Carbonate 750 Mg Tab.Chew) 750 mg PO Q4H PRN PRN Reason: Heartburn Enoxaparin Sodium (Enoxaparin Sodium 40 Mg/0.4 Ml Syringe) 40 mg SUBCUT Q24H [facility] Last Admin: 01/02/25 21:20 Dose: 40 mg Documented By: MORENITA Magnesium Hydroxide (Milk Of Magnesia 30 Ml Oral.Susp) 30 ml PO DAILY PRN PRN Reason: Constipation Melatonin (Melatonin 3 Mg Tablet) 6 mg PO BEDTIME PRN PRN Reason: Insomnia Ondansetron HCl (Ondansetron Hcl 4 Mg/2 Ml Vial) 4 mg IVPUSH Q8H PRN PRN Reason: Nausea and Vomiting Labs 01/01/25 08:53 01/01/25 08:53 Assessment and Plan (1) Major neurocognitive disorder: Status: Acute Plan 69yo M with unknown PMH who presented to ED on 11/19/24 complianing of chest pain that was deemed to be non-cardiac. Psychiatric evaluation indicated that he does not have capacity due to significant cognitive impairment and paranoid delusions likely secondary to dementia. Given that pt will require LTC placement involving guardianship and potentially Downing orders, pt was admitted to the hospitalist service Unspecified dementia head CT showed microvascular changes and atrophy likely, mixed etiology from vascular and Alzheimer's dementia UA negative, TSH + B12 normal per Psychiatry, no capacity to make medical decision; paranoid delusions secondary to dementia homeless, requires 24/ care, awaiting guardianship risperidone started by Psychiatry for paranoid delusions likely secondary to dementia, stopped d/t patient refusing to take this medication stating he is not cuckoo . follow closely for paranoia and behavioral issues HTN controlled without meds was on Norvasc in the past Chest pain appears non-cardiac repeat EKG without ischemic changes and another set of troponins completely negative prn Maalox VTE ppx enoxaparin dispo long-term care placement In my clinical judgment, the patient requires continued inpatient hospitalization for the following reasons: placement Quality Stroke Does the patient have a stroke diagnosis?: No VTE Prior VTE?: No VTE Risk Level:: Medical - moderate - high VTE Device Contraindication: Treatment Not Indicated VTE Drug Contraindication: N/A - Med Ordered
[2025-01-03 15:12] VITALS: BP 134/82; PULSE 67; RESP 14; TEMP 36.6; O2SAT 99
[2025-01-03] MEDS: Enoxaparin Sodium 40 MG/0.4 ML SYRINGE SUBCUT (20:25)
[2025-01-03] MEDS: Artificial Tears 15 ML DROPS 1 DROP EYE-BOTH (20:31)
[2025-01-03 23:14] VITALS: BP 129/68; PULSE 58; RESP 18; TEMP 36.3; O2SAT 99
[2025-01-04 08:00] VITALS: BP 136/83; PULSE 72; RESP 14; TEMP 36.5; O2SAT 98
--- NOTE | 2025-01-04 09:03 | P.PNIM_ITS ---
Subjective Subjective Date of Service: 01/04/25 Interval History: seen and examined this morning follow up for placement no overnight events ambulates in room Review of Systems Review of Systems: Yes all other systems are reviewed and are negative Constitutional Constitutional: Denies chills and Denies fever(s) Cardiovascular Cardiovascular: Denies chest pain Physical Exam 2 Vital Signs: Vital Signs: Last Vital Signs Temp 97.7 F 01/04/25 08:00 Pulse 72 01/04/25 08:00 Resp 14 01/04/25 08:00 BP 136/83 01/04/25 08:00 Pulse Ox 98 01/04/25 08:00 O2 Del Method Room Air 01/04/25 08:00 BMI result Body Mass Index 21.2 alert, confused ambulates in room Objective Data Active Medications Acetaminophen (Acetaminophen 325 Mg Tablet) 650 mg PO Q6H PRN PRN Reason: Pain, Mild 1-3,fever,headache Al Hydroxide/Mg Hydroxide (Magnesium Hydrox/Alum Hydrox 30 Ml Oral.Susp) 15 ml PO Q4H PRN PRN Reason: chest discomfort Artificial Tears (Artificial Tears 15 Ml Drops) 1 drop EYE-BOTH Q4H PRN PRN Reason: Dry Eyes Last Admin: 01/03/25 20:31 Dose: 1 drop Documented By: TERESA Calcium Carbonate (Calcium Carbonate 750 Mg Tab.Chew) 750 mg PO Q4H PRN PRN Reason: Heartburn Enoxaparin Sodium (Enoxaparin Sodium 40 Mg/0.4 Ml Syringe) 40 mg SUBCUT Q24H [facility] Last Admin: 01/03/25 20:25 Dose: 40 mg Documented By: TERESA Magnesium Hydroxide (Milk Of Magnesia 30 Ml Oral.Susp) 30 ml PO DAILY PRN PRN Reason: Constipation Melatonin (Melatonin 3 Mg Tablet) 6 mg PO BEDTIME PRN PRN Reason: Insomnia Ondansetron HCl (Ondansetron Hcl 4 Mg/2 Ml Vial) 4 mg IVPUSH Q8H PRN PRN Reason: Nausea and Vomiting Labs 01/01/25 08:53 01/01/25 08:53 Assessment and Plan (1) Major neurocognitive disorder: Status: Acute Plan 69yo M with unknown PMH who presented to ED on 11/19/24 complianing of chest pain that was deemed to be non-cardiac. Psychiatric evaluation indicated that he does not have capacity due to significant cognitive impairment and paranoid delusions likely secondary to dementia. 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 follow closely for paranoia and behavioral issues HTN controlled without meds was on Norvasc in the past Chest pain appears non-cardiac repeat EKG without ischemic changes and another set of troponins completely negative prn Maalox VTE ppx enoxaparin dispo long-term care placement In my clinical judgment, the patient requires continued inpatient hospitalization for the following reasons: placement Quality Stroke Does the patient have a stroke diagnosis?: No VTE Prior VTE?: No VTE Risk Level:: Medical - moderate - high VTE Device Contraindication: Treatment Not Indicated VTE Drug Contraindication: N/A - Med Ordered
[2025-01-04 15:28] VITALS: BP 125/69; PULSE 61; RESP 18; TEMP 36.6; O2SAT 98
[2025-01-04] MEDS: Enoxaparin Sodium 40 MG/0.4 ML SYRINGE SUBCUT (21:05)
[2025-01-04 23:25] VITALS: BP 130/75; PULSE 52; RESP 18; TEMP 36.7; O2SAT 98
[2025-01-05 07:38] VITALS: BP 138/83; PULSE 65; RESP 16; TEMP 36.3; O2SAT 99
--- NOTE | 2025-01-05 09:01 | P.PNIM_ITS ---
Subjective Subjective Date of Service: 01/05/25 Interval History: seen and examined this morning follow up for placement no overnight events ambulates in room Review of Systems Review of Systems: Yes all other systems are reviewed and are negative Constitutional Constitutional: Denies chills and Denies fever(s) Cardiovascular Cardiovascular: Denies chest pain Physical Exam 2 Vital Signs: alert, confused ambulates in room Objective Data Active Medications Acetaminophen (Acetaminophen 325 Mg Tablet) 650 mg PO Q6H PRN PRN Reason: Pain, Mild 1-3,fever,headache Al Hydroxide/Mg Hydroxide (Magnesium Hydrox/Alum Hydrox 30 Ml Oral.Susp) 15 ml PO Q4H PRN PRN Reason: chest discomfort Artificial Tears (Artificial Tears 15 Ml Drops) 1 drop EYE-BOTH Q4H PRN PRN Reason: Dry Eyes Last Admin: 01/03/25 20:31 Dose: 1 drop Documented By: TERESA Calcium Carbonate (Calcium Carbonate 750 Mg Tab.Chew) 750 mg PO Q4H PRN PRN Reason: Heartburn Enoxaparin Sodium (Enoxaparin Sodium 40 Mg/0.4 Ml Syringe) 40 mg SUBCUT Q24H [facility] Last Admin: 01/04/25 21:05 Dose: 40 mg Documented By: ROM Magnesium Hydroxide (Milk Of Magnesia 30 Ml Oral.Susp) 30 ml PO DAILY PRN PRN Reason: Constipation Melatonin (Melatonin 3 Mg Tablet) 6 mg PO BEDTIME PRN PRN Reason: Insomnia Ondansetron HCl (Ondansetron Hcl 4 Mg/2 Ml Vial) 4 mg IVPUSH Q8H PRN PRN Reason: Nausea and Vomiting Labs 01/01/25 08:53 01/01/25 08:53 Assessment and Plan (1) Major neurocognitive disorder: Status: Acute Plan 69yo M with unknown PMH who presented to ED on 11/19/24 complianing of chest pain that was deemed to be non-cardiac. Psychiatric evaluation indicated that he does not have capacity due to significant cognitive impairment and paranoid delusions likely secondary to dementia. 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 follow closely for paranoia and behavioral issues HTN controlled without meds was on Norvasc in the past Chest pain appears non-cardiac repeat EKG without ischemic changes and another set of troponins completely negative prn Maalox VTE ppx enoxaparin dispo long-term care placement In my clinical judgment, the patient requires continued inpatient hospitalization for the following reasons: placement Quality Stroke Does the patient have a stroke diagnosis?: No VTE Prior VTE?: No VTE Risk Level:: Medical - moderate - high VTE Device Contraindication: Treatment Not Indicated VTE Drug Contraindication: N/A - Med Ordered
[2025-01-05 15:25] VITALS: BP 122/63; PULSE 65; RESP 14; TEMP 36.5; O2SAT 98
[2025-01-05] MEDS: Enoxaparin Sodium 40 MG/0.4 ML SYRINGE SUBCUT (21:26)
[2025-01-05 23:28] VITALS: BP 130/76; PULSE 56; RESP 18; TEMP 36.3; O2SAT 96
--- NOTE | 2025-01-06 07:15 | P.PNIM_ITS ---
Subjective Subjective Date of Service: 01/06/25 Interval History: seen and examined this morning follow up for placement no overnight events ambulates in room Review of Systems Review of Systems: Yes all other systems are reviewed and are negative Constitutional Constitutional: Denies chills and Denies fever(s) Cardiovascular Cardiovascular: Denies chest pain Physical Exam 2 Vital Signs: Vital Signs: Last Vital Signs Temp 97.4 F 01/05/25 23:28 Pulse 56 01/05/25 23:28 Resp 18 01/05/25 23:28 BP 130/76 01/05/25 23:28 Pulse Ox 96 01/05/25 23:28 O2 Del Method Room Air 01/05/25 23:28 BMI result Body Mass Index 21.2 alert and confused Objective Data Active Medications Acetaminophen (Acetaminophen 325 Mg Tablet) 650 mg PO Q6H PRN PRN Reason: Pain, Mild 1-3,fever,headache Al Hydroxide/Mg Hydroxide (Magnesium Hydrox/Alum Hydrox 30 Ml Oral.Susp) 15 ml PO Q4H PRN PRN Reason: chest discomfort Artificial Tears (Artificial Tears 15 Ml Drops) 1 drop EYE-BOTH Q4H PRN PRN Reason: Dry Eyes Last Admin: 01/03/25 20:31 Dose: 1 drop Documented By: TERESA Calcium Carbonate (Calcium Carbonate 750 Mg Tab.Chew) 750 mg PO Q4H PRN PRN Reason: Heartburn Enoxaparin Sodium (Enoxaparin Sodium 40 Mg/0.4 Ml Syringe) 40 mg SUBCUT Q24H [facility] Last Admin: 01/05/25 21:26 Dose: 40 mg Documented By: KRISTIN Magnesium Hydroxide (Milk Of Magnesia 30 Ml Oral.Susp) 30 ml PO DAILY PRN PRN Reason: Constipation Melatonin (Melatonin 3 Mg Tablet) 6 mg PO BEDTIME PRN PRN Reason: Insomnia Ondansetron HCl (Ondansetron Hcl 4 Mg/2 Ml Vial) 4 mg IVPUSH Q8H PRN PRN Reason: Nausea and Vomiting Labs 01/01/25 08:53 01/01/25 08:53 Assessment and Plan (1) Major neurocognitive disorder: Status: Acute Plan 69yo M with unknown PMH who presented to ED on 11/19/24 complianing of chest pain that was deemed to be non-cardiac. Psychiatric evaluation indicated that he does not have capacity due to significant cognitive impairment and paranoid delusions likely secondary to dementia. 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 follow closely for paranoia and behavioral issues HTN controlled without meds was on Norvasc in the past Chest pain. Resolved appears non-cardiac repeat EKG without ischemic changes and another set of troponins completely negative prn Maalox VTE ppx enoxaparin dispo long-term care placement In my clinical judgment, the patient requires continued inpatient hospitalization for the following reasons: placement Quality Stroke Does the patient have a stroke diagnosis?: No VTE Prior VTE?: No VTE Risk Level:: Medical - moderate - high VTE Device Contraindication: Treatment Not Indicated VTE Drug Contraindication: N/A - Med Ordered
[2025-01-06 07:21] VITALS: BP 131/84; PULSE 61; RESP 16; TEMP 36.2; O2SAT 99
--- NOTE | 2025-01-06 10:18 | MHC.CM.PN ---
Continue to await documentation of guardianship. Financial Counselor working w/ daughter, Jonelle, to convert [facility] to LTC. CM will continue to follow.
[2025-01-06 15:29] VITALS: BP 125/69; PULSE 62; RESP 14; TEMP 36.2; O2SAT 96
--- NOTE | 2025-01-06 15:43 | PC.NURSE ---
Pt cooperative pleasant independent in room
[2025-01-06] MEDS: Enoxaparin Sodium 40 MG/0.4 ML SYRINGE SUBCUT (20:21)
[2025-01-06 23:39] VITALS: BP 122/70; PULSE 57; RESP 18; TEMP 36.7; O2SAT 98
--- NOTE | 2025-01-07 03:40 | PC.NURSE ---
Patient awaiting placement, alert, can be a little forgetful at times, pleasant and cooperative, no changes to baseline, denies pain, and enjoyed a snack. Patient ambulates independently within his room, very steady, voiding fine in BR, agreeable to his scheduled Lovenox injection, lung parrish clear, VSS.
--- NOTE | 2025-01-07 06:53 | HO.PM.IMPN ---
Subjective Subjective Date of Service: 01/07/25 Interval History: follow up for placement no overnight events ambulates in room Review of Systems Review of Systems: Yes all other systems are reviewed and are negative Constitutional Constitutional: Denies chills and Denies fever(s) Cardiovascular Cardiovascular: Denies chest pain Physical Exam Vital Signs: Vital Signs: Last Vital Signs Temp 98.0 F 01/06/25 23:39 Pulse 57 01/06/25 23:39 Resp 18 01/06/25 23:39 BP 122/70 01/06/25 23:39 Pulse Ox 98 01/06/25 23:39 O2 Del Method Room Air 01/06/25 23:39 BMI result Body Mass Index 21.2 Appearing in no acute distress lung sounds are clear to auscultation heart regular rate rhythm, clear S1, S2 positive bowel sounds, abdomen is soft, nontender neuro patient is alert, confused, suspicious Objective Data Active Medications Acetaminophen (Acetaminophen 325 Mg Tablet) 650 mg PO Q6H PRN PRN Reason: Pain, Mild 1-3,fever,headache Al Hydroxide/Mg Hydroxide (Magnesium Hydrox/Alum Hydrox 30 Ml Oral.Susp) 15 ml PO Q4H PRN PRN Reason: chest discomfort Artificial Tears (Artificial Tears 15 Ml Drops) 1 drop EYE-BOTH Q4H PRN PRN Reason: Dry Eyes Last Admin: 01/03/25 20:31 Dose: 1 drop Documented By: TERESA Calcium Carbonate (Calcium Carbonate 750 Mg Tab.Chew) 750 mg PO Q4H PRN PRN Reason: Heartburn Enoxaparin Sodium (Enoxaparin Sodium 40 Mg/0.4 Ml Syringe) 40 mg SUBCUT Q24H [facility] Last Admin: 01/06/25 20:21 Dose: 40 mg Documented By: KRISTIN Magnesium Hydroxide (Milk Of Magnesia 30 Ml Oral.Susp) 30 ml PO DAILY PRN PRN Reason: Constipation Melatonin (Melatonin 3 Mg Tablet) 6 mg PO BEDTIME PRN PRN Reason: Insomnia Ondansetron HCl (Ondansetron Hcl 4 Mg/2 Ml Vial) 4 mg IVPUSH Q8H PRN PRN Reason: Nausea and Vomiting Labs 01/01/25 08:53 01/01/25 08:53 Assessment and Plan (1) Major neurocognitive disorder: Status: Acute Plan 69yo M with unknown PMH who presented to ED on 11/19/24 complianing of chest pain that was deemed to be non-cardiac. Psychiatric evaluation indicated that he does not have capacity due to significant cognitive impairment and paranoid delusions likely secondary to dementia. 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 follow closely for paranoia and behavioral issues ambulate daily HTN controlled without medictions Chest pain. Resolved non-cardiac repeat EKG without ischemic changes and another set of troponins completely negative prn Maalox VTE ppx enoxaparin dispo long-term care placement Quality Stroke Does the patient have a stroke diagnosis?: No VTE Prior VTE?: No VTE Risk Level:: Medical - moderate - high VTE Device Contraindication: Treatment Not Indicated VTE Drug Contraindication: N/A - Med Ordered
[2025-01-07 07:32] VITALS: BP 139/89; PULSE 66; RESP 14; TEMP 36.1; O2SAT 99
[2025-01-07 15:07] VITALS: BP 127/72; PULSE 67; RESP 16; TEMP 36.7; O2SAT 98
[2025-01-07] MEDS: Artificial Tears 15 ML DROPS 1 DROP EYE-BOTH (20:03)
[2025-01-07] MEDS: Enoxaparin Sodium 40 MG/0.4 ML SYRINGE SUBCUT (20:03)
[2025-01-07 23:31] VITALS: BP 127/75; PULSE 58; RESP 18; TEMP 36.6; O2SAT 99
[2025-01-08 06:56] VITALS: BP 152/90; PULSE 60; RESP 16; TEMP 36.1; O2SAT 99
[2025-01-08 07:00] LABS: Hemoglobin 13.5 g/dl (14.0-18.0); Mean Corpuscular HGB Conc 32.9 g/dl (31.0-36.0); Mean Corpuscular Hemoglobin 29.9 pg (27.0-33.0); Mean Corpuscular Volume 90.7 fL (80.0-98.0); Mean Platelet Volume 10.9 fL (9.4-12.4); Platelet Count 164 X10*3/uL (160-400); Red Blood Count 4.52 X10*6/uL (4.60-5.80); Red Cell Distribution Width 11.9 % (11.0-16.0)
[2025-01-08 07:04] LABS: Anion Gap 10 (12-20); Blood Urea Nitrogen 17 mg/dL (9-16); Calcium 9.6 mg/dL (8.4-10.2); Carbon Dioxide 30 mmol/L (22-29); Chloride 104 mmol/L (96-108); Creatinine Clr Calc Pharmacy 88.3; Estimated Glomerular Filt Rate > 60; Glucose Random 92 mg/dL (60-115); Potassium 4.4 mmol/L (3.3-5.1); Sodium 140 mmol/L (135-145)
--- NOTE | 2025-01-08 11:14 | HO.PM.IMPN ---
Subjective Subjective Date of Service: 01/08/25 Interval History: no new events Review of Systems Review of Systems: Yes all other systems are reviewed and are negative Physical Exam Vital Signs: Vital Signs: Last Vital Signs Temp 97 F 01/08/25 06:56 Pulse 60 01/08/25 06:56 Resp 16 01/08/25 06:56 BP 152/90 H 01/08/25 06:56 Pulse Ox 99 01/08/25 06:56 O2 Del Method Room Air 01/08/25 06:56 BMI result Body Mass Index 21.2 Gen: in no acute distress Lungs: clear to auscultation bilaterally Heart: regular rate and rhythm, no murmurs Abd: soft, non-tender, non-distended Neuro: alert and oriented to self/place [but not town], not to date or situation, ambulatory Psych: impaired insight Objective Data Active Medications Acetaminophen (Acetaminophen 325 Mg Tablet) 650 mg PO Q6H PRN PRN Reason: Pain, Mild 1-3,fever,headache Al Hydroxide/Mg Hydroxide (Magnesium Hydrox/Alum Hydrox 30 Ml Oral.Susp) 15 ml PO Q4H PRN PRN Reason: chest discomfort Artificial Tears (Artificial Tears 15 Ml Drops) 1 drop EYE-BOTH Q4H PRN PRN Reason: Dry Eyes Last Admin: 01/07/25 20:03 Dose: 1 drop Documented By: TERESA Calcium Carbonate (Calcium Carbonate 750 Mg Tab.Chew) 750 mg PO Q4H PRN PRN Reason: Heartburn Enoxaparin Sodium (Enoxaparin Sodium 40 Mg/0.4 Ml Syringe) 40 mg SUBCUT Q24H [facility] Last Admin: 01/07/25 20:03 Dose: 40 mg Documented By: TERESA Magnesium Hydroxide (Milk Of Magnesia 30 Ml Oral.Susp) 30 ml PO DAILY PRN PRN Reason: Constipation Melatonin (Melatonin 3 Mg Tablet) 6 mg PO BEDTIME PRN PRN Reason: Insomnia Ondansetron HCl (Ondansetron Hcl 4 Mg/2 Ml Vial) 4 mg IVPUSH Q8H PRN PRN Reason: Nausea and Vomiting Labs 01/08/25 06:19 01/08/25 06:19 Labs: Laboratory Results - last 24 hr 01/08/25 06:19 MCV 90.7 MCH 29.9 MCHC 32.9 RDW 11.9 Plt Count 164 MPV 10.9 Absolute Nucleated RBC 0.000 Nucleated RBC % (auto) 0.0 Anion Gap 10 L Estim Creat Clear Calc 88.3 Estimated GFR > 60 Random Glucose 92 Calcium 9.6 Assessment and Plan (1) Major neurocognitive disorder: Status: Acute Plan d47 for 69yo M with unknown PMH who presented to ED on 11/19/24 complianing of chest pain that was deemed to be non-cardiac Psychiatric evaluation indicated that he does not have capacity due to significant cognitive impairment and paranoid delusions likely secondary to dementia. 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 - UA negative, TSH + B12 normal - per Psychiatry, no capacity to make medical decision; paranoid delusions secondary to dementia - pt also now homeless, requires 24/7 care, awaiting guardianship - continue risperidone per Psychiatry HTN - controlled without meds chest pain - appears non-cardiac- repeat EKG without ischemic changes and another set of troponins completely negative VTE ppx - enoxaparin dispo - long-term care placement In my clinical judgment, the patient requires continued inpatient hospitalization for the following reasons: placement Total time managing care of this patient today: 25 minutes. Quality Stroke Does the patient have a stroke diagnosis?: No VTE Prior VTE?: No VTE Risk Level:: Medical - moderate - high VTE Device Contraindication: Treatment Not Indicated VTE Drug Contraindication: N/A - Med Ordered
--- NOTE | 2025-01-08 12:33 | MHC.CM.PN ---
EMR REVIEWED. PT REMAINS MEDICALLY CLEARED FOR DC. GUARDIANSHIP/CULLEN PPW RECEIVED FROM COURT. [facility] [place] [facility] WORKING WITH DAUGHTER/GUARDIAN EDWINA TO OBTAIN MORE DOCUMENTS TO CONVERT CURRENT MH TO LTC. CM CONTINUES TO FOLLOW
[2025-01-08 15:14] VITALS: BP 114/64; PULSE 64; RESP 18; TEMP 36.9; O2SAT 97
[2025-01-08] MEDS: Enoxaparin Sodium 40 MG/0.4 ML SYRINGE SUBCUT (20:12)
[2025-01-08 23:24] VITALS: BP 134/82; PULSE 68; RESP 18; TEMP 36.4; O2SAT 97
[2025-01-09 06:51] VITALS: BP 133/79; PULSE 67; RESP 15; TEMP 36; O2SAT 99
--- NOTE | 2025-01-09 11:21 | HO.PM.IMPN ---
Subjective Subjective Date of Service: 01/09/25 Interval History: no new issues Review of Systems Review of Systems: Yes all other systems are reviewed and are negative Physical Exam Vital Signs: Vital Signs: Last Vital Signs Temp 96.8 F 01/09/25 06:51 Pulse 67 01/09/25 06:51 Resp 15 01/09/25 06:51 BP 133/79 01/09/25 06:51 Pulse Ox 99 01/09/25 06:51 O2 Del Method Room Air 01/09/25 06:51 BMI result Body Mass Index 21.2 Gen: in no acute distress Lungs: clear to auscultation bilaterally Heart: regular rate and rhythm, no murmurs Abd: soft, non-tender, non-distended Neuro: alert and oriented to self/place [but not town], not to date or situation, ambulatory Psych: impaired insight Objective Data Active Medications Acetaminophen (Acetaminophen 325 Mg Tablet) 650 mg PO Q6H PRN PRN Reason: Pain, Mild 1-3,fever,headache Al Hydroxide/Mg Hydroxide (Magnesium Hydrox/Alum Hydrox 30 Ml Oral.Susp) 15 ml PO Q4H PRN PRN Reason: chest discomfort Artificial Tears (Artificial Tears 15 Ml Drops) 1 drop EYE-BOTH Q4H PRN PRN Reason: Dry Eyes Last Admin: 01/07/25 20:03 Dose: 1 drop Documented By: TERESA Calcium Carbonate (Calcium Carbonate 750 Mg Tab.Chew) 750 mg PO Q4H PRN PRN Reason: Heartburn Enoxaparin Sodium (Enoxaparin Sodium 40 Mg/0.4 Ml Syringe) 40 mg SUBCUT Q24H [facility] Last Admin: 01/08/25 20:12 Dose: 40 mg Documented By: TERESA Magnesium Hydroxide (Milk Of Magnesia 30 Ml Oral.Susp) 30 ml PO DAILY PRN PRN Reason: Constipation Melatonin (Melatonin 3 Mg Tablet) 6 mg PO BEDTIME PRN PRN Reason: Insomnia Ondansetron HCl (Ondansetron Hcl 4 Mg/2 Ml Vial) 4 mg IVPUSH Q8H PRN PRN Reason: Nausea and Vomiting Labs 01/08/25 06:19 01/08/25 06:19 Assessment and Plan (1) Major neurocognitive disorder: Status: Acute Plan d48 for 69yo M with unknown PMH who presented to ED on 11/19/24 complianing of chest pain that was deemed to be non-cardiac Psychiatric evaluation indicated that he does not have capacity due to significant cognitive impairment and paranoid delusions likely secondary to dementia. 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 - UA negative, TSH + B12 normal - per Psychiatry, no capacity to make medical decision; paranoid delusions secondary to dementia - pt also now homeless, requires 17/04 care, awaiting guardianship - continue risperidone per Psychiatry HTN - controlled without meds chest pain - appears non-cardiac- repeat EKG without ischemic changes and another set of troponins completely negative VTE ppx - enoxaparin dispo - long-term care placement In my clinical judgment, the patient requires continued inpatient hospitalization for the following reasons: placement Total time managing care of this patient today: 25 minutes. Quality Stroke Does the patient have a stroke diagnosis?: No VTE Prior VTE?: No VTE Risk Level:: Medical - moderate - high VTE Device Contraindication: Treatment Not Indicated VTE Drug Contraindication: N/A - Med Ordered
--- NOTE | 2025-01-09 15:24 | MHC.CM.PN ---
CM SENT SNF REFERRALS OUT, SANJUANITA OWUSU WILL COME TO SEE PT 01/10. CM WILL CONTINUE TO FOLLOW.
[2025-01-09 16:00] VITALS: BP 129/84; PULSE 71; RESP 16; TEMP 37.1; O2SAT 97
[2025-01-09] MEDS: Enoxaparin Sodium 40 MG/0.4 ML SYRINGE SUBCUT (20:37)
[2025-01-09 23:06] VITALS: BP 140/69; PULSE 71; RESP 18; TEMP 36.3; O2SAT 98
[2025-01-10 07:05] VITALS: BP 133/79; PULSE 68; RESP 15; TEMP 36.1; O2SAT 98
--- NOTE | 2025-01-10 09:27 | P.PNIM_ITS ---
Subjective Subjective Date of Service: 01/10/25 Interval History: no new issues Review of Systems Review of Systems: Yes all other systems are reviewed and are negative Physical Exam 2 Vital Signs: Vital Signs: Last Vital Signs Temp 97 F 01/10/25 07:05 Pulse 68 01/10/25 07:05 Resp 15 01/10/25 07:05 BP 133/79 01/10/25 07:05 Pulse Ox 98 01/10/25 07:05 O2 Del Method Room Air 01/10/25 07:05 BMI result Body Mass Index 21.2 Gen: in no acute distress Lungs: clear to auscultation bilaterally Heart: regular rate and rhythm, no murmurs Abd: soft, non-tender, non-distended Neuro: alert and oriented to self/place [but not town], not to date or situation, ambulatory Psych: impaired insight Objective Data Active Medications Acetaminophen (Acetaminophen 325 Mg Tablet) 650 mg PO Q6H PRN PRN Reason: Pain, Mild 1-3,fever,headache Al Hydroxide/Mg Hydroxide (Magnesium Hydrox/Alum Hydrox 30 Ml Oral.Susp) 15 ml PO Q4H PRN PRN Reason: chest discomfort Artificial Tears (Artificial Tears 15 Ml Drops) 1 drop EYE-BOTH Q4H PRN PRN Reason: Dry Eyes Last Admin: 01/07/25 20:03 Dose: 1 drop Documented By: TERESA Calcium Carbonate (Calcium Carbonate 750 Mg Tab.Chew) 750 mg PO Q4H PRN PRN Reason: Heartburn Enoxaparin Sodium (Enoxaparin Sodium 40 Mg/0.4 Ml Syringe) 40 mg SUBCUT Q24H [facility] Last Admin: 01/09/25 20:37 Dose: 40 mg Documented By: MOERNITA Magnesium Hydroxide (Milk Of Magnesia 30 Ml Oral.Susp) 30 ml PO DAILY PRN PRN Reason: Constipation Melatonin (Melatonin 3 Mg Tablet) 6 mg PO BEDTIME PRN PRN Reason: Insomnia Ondansetron HCl (Ondansetron Hcl 4 Mg/2 Ml Vial) 4 mg IVPUSH Q8H PRN PRN Reason: Nausea and Vomiting Labs 01/08/25 06:19 01/08/25 06:19 Assessment and Plan (1) Major neurocognitive disorder: Status: Acute Plan d49 for 69yo M with unknown PMH who presented to ED on 11/19/24 complianing of chest pain that was deemed to be non-cardiac Psychiatric evaluation indicated that he does not have capacity due to significant cognitive impairment and paranoid delusions likely secondary to dementia. 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 - UA negative, TSH + B12 normal - per Psychiatry, no capacity to make medical decision; paranoid delusions secondary to dementia - pt also now homeless, requires 17/04 care, awaiting guardianship - continue risperidone per Psychiatry HTN - controlled without meds chest pain - appears non-cardiac- repeat EKG without ischemic changes and another set of troponins completely negative VTE ppx - enoxaparin dispo - long-term care placement In my clinical judgment, the patient requires continued inpatient hospitalization for the following reasons: placement Total time managing care of this patient today: 25 minutes. Quality Stroke Does the patient have a stroke diagnosis?: No VTE Prior VTE?: No VTE Risk Level:: Medical - moderate - high VTE Device Contraindication: Treatment Not Indicated VTE Drug Contraindication: N/A - Med Ordered
--- NOTE | 2025-01-10 13:41 | MHC.CM.PN ---
Addendum entered by Cinthya Orta 01/10/25 15:50: SANJUANITA OWUSU HAS APPROVED PT FOR ADMISSION NEXT WEEK PENDING ELDER CARE APPROVAL/PASSR. DAUGHTER/GUARDIAN EDWINA CONTACTED AND IS AGREEMENT WITH THIS PLAN. CM CONTINUES TO FOLLOW Original Note: SANJUANITA OWUSU LIAISON/ADNS IN TO MEET WITH PT FOR POSSIBLE ADMISSION SCREEN. CM AWAITS DECISION.
[2025-01-10 15:33] VITALS: BP 125/70; PULSE 70; RESP 20; TEMP 36.7; O2SAT 98
[2025-01-10 19:15] VITALS: BP 123/66; PULSE 68; RESP 18; TEMP 36.9; O2SAT 96
[2025-01-10] MEDS: Enoxaparin Sodium 40 MG/0.4 ML SYRINGE SUBCUT (21:14)
[2025-01-10 23:10] VITALS: BP 124/73; PULSE 64; RESP 16; TEMP 36.5; O2SAT 97
[2025-01-11 07:27] VITALS: BP 135/72; PULSE 72; RESP 16; TEMP 36.2; O2SAT 96
--- NOTE | 2025-01-11 09:31 | HO.PM.IMPN ---
Subjective Subjective Date of Service: 01/11/25 Interval History: no new issues Review of Systems Review of Systems: Yes all other systems are reviewed and are negative Physical Exam Vital Signs: Vital Signs: Last Vital Signs Temp 97.1 F 01/11/25 07:27 Pulse 72 01/11/25 07:27 Resp 16 01/11/25 07:27 BP 135/72 01/11/25 07:27 Pulse Ox 96 01/11/25 07:27 O2 Del Method Room Air 01/11/25 07:27 BMI result Body Mass Index 21.2 Gen: in no acute distress Lungs: clear to auscultation bilaterally Heart: regular rate and rhythm, no murmurs Abd: soft, non-tender, non-distended Neuro: alert and oriented to self/place [but not town], not to date or situation, ambulatory Psych: impaired insight Objective Data Active Medications Acetaminophen (Acetaminophen 325 Mg Tablet) 650 mg PO Q6H PRN PRN Reason: Pain, Mild 1-3,fever,headache Al Hydroxide/Mg Hydroxide (Magnesium Hydrox/Alum Hydrox 30 Ml Oral.Susp) 15 ml PO Q4H PRN PRN Reason: chest discomfort Artificial Tears (Artificial Tears 15 Ml Drops) 1 drop EYE-BOTH Q4H PRN PRN Reason: Dry Eyes Last Admin: 01/07/25 20:03 Dose: 1 drop Documented By: TERESA Calcium Carbonate (Calcium Carbonate 750 Mg Tab.Chew) 750 mg PO Q4H PRN PRN Reason: Heartburn Enoxaparin Sodium (Enoxaparin Sodium 40 Mg/0.4 Ml Syringe) 40 mg SUBCUT Q24H [facility] Last Admin: 01/10/25 21:14 Dose: 40 mg Documented By: MORENITA Magnesium Hydroxide (Milk Of Magnesia 30 Ml Oral.Susp) 30 ml PO DAILY PRN PRN Reason: Constipation Melatonin (Melatonin 3 Mg Tablet) 6 mg PO BEDTIME PRN PRN Reason: Insomnia Ondansetron HCl (Ondansetron Hcl 4 Mg/2 Ml Vial) 4 mg IVPUSH Q8H PRN PRN Reason: Nausea and Vomiting Labs 01/08/25 06:19 01/08/25 06:19 Assessment and Plan (1) Major neurocognitive disorder: Status: Acute Plan d50 for 69yo M with unknown PMH who presented to ED on 11/19/24 complianing of chest pain that was deemed to be non-cardiac Psychiatric evaluation indicated that he does not have capacity due to significant cognitive impairment and paranoid delusions likely secondary to dementia. 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 - UA negative, TSH + B12 normal - per Psychiatry, no capacity to make medical decision; paranoid delusions secondary to dementia - pt also now homeless, requires 17/04 care, awaiting guardianship - continue risperidone per Psychiatry HTN - controlled without meds chest pain - appears non-cardiac- repeat EKG without ischemic changes and another set of troponins completely negative VTE ppx - enoxaparin dispo - long-term care placement In my clinical judgment, the patient requires continued inpatient hospitalization for the following reasons: placement Total time managing care of this patient today: 25 minutes. Quality Stroke Does the patient have a stroke diagnosis?: No VTE Prior VTE?: No VTE Risk Level:: Medical - moderate - high VTE Device Contraindication: Treatment Not Indicated VTE Drug Contraindication: N/A - Med Ordered
[2025-01-11 15:41] VITALS: BP 123/74; PULSE 70; RESP 18; TEMP 36.6; O2SAT 98
[2025-01-11] MEDS: Enoxaparin Sodium 40 MG/0.4 ML SYRINGE SUBCUT (20:55)
[2025-01-11 23:32] VITALS: BP 146/73; PULSE 64; RESP 16; TEMP 36.1; O2SAT 97
[2025-01-12 07:27] VITALS: BP 131/82; PULSE 70; RESP 16; TEMP 36.2; O2SAT 97
--- NOTE | 2025-01-12 10:32 | HO.PM.IMPN ---
Subjective Subjective Date of Service: 01/12/25 Interval History: no new issues Review of Systems Review of Systems: Yes all other systems are reviewed and are negative Physical Exam Vital Signs: Vital Signs: Last Vital Signs Temp 97.1 F 01/12/25 07:27 Pulse 70 01/12/25 07:27 Resp 16 01/12/25 07:27 BP 131/82 01/12/25 07:27 Pulse Ox 97 01/12/25 07:27 O2 Del Method Room Air 01/12/25 07:27 BMI result Body Mass Index 21.2 Gen: in no acute distress Lungs: no respiratory distress Neuro: alert and oriented to self/place [but not town], not to date or situation, ambulatory Psych: impaired insight Objective Data Active Medications Acetaminophen (Acetaminophen 325 Mg Tablet) 650 mg PO Q6H PRN PRN Reason: Pain, Mild 1-3,fever,headache Al Hydroxide/Mg Hydroxide (Magnesium Hydrox/Alum Hydrox 30 Ml Oral.Susp) 15 ml PO Q4H PRN PRN Reason: chest discomfort Artificial Tears (Artificial Tears 15 Ml Drops) 1 drop EYE-BOTH Q4H PRN PRN Reason: Dry Eyes Last Admin: 01/07/25 20:03 Dose: 1 drop Documented By: TERESA Calcium Carbonate (Calcium Carbonate 750 Mg Tab.Chew) 750 mg PO Q4H PRN PRN Reason: Heartburn Enoxaparin Sodium (Enoxaparin Sodium 40 Mg/0.4 Ml Syringe) 40 mg SUBCUT Q24H [facility] Last Admin: 01/11/25 20:55 Dose: 40 mg Documented By: MORENITA Magnesium Hydroxide (Milk Of Magnesia 30 Ml Oral.Susp) 30 ml PO DAILY PRN PRN Reason: Constipation Melatonin (Melatonin 3 Mg Tablet) 6 mg PO BEDTIME PRN PRN Reason: Insomnia Ondansetron HCl (Ondansetron Hcl 4 Mg/2 Ml Vial) 4 mg IVPUSH Q8H PRN PRN Reason: Nausea and Vomiting Labs 01/08/25 06:19 01/08/25 06:19 Assessment and Plan (1) Major neurocognitive disorder: Status: Acute Plan d51 for 69yo M with unknown PMH who presented to ED on 11/19/24 complianing of chest pain that was deemed to be non-cardiac Psychiatric evaluation indicated that he does not have capacity due to significant cognitive impairment and paranoid delusions likely secondary to dementia. 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 - UA negative, TSH + B12 normal - per Psychiatry, no capacity to make medical decision; paranoid delusions secondary to dementia - pt also now homeless, requires 24/7 care, awaiting guardianship - continue risperidone per Psychiatry HTN - controlled without meds chest pain - appears non-cardiac- repeat EKG without ischemic changes and another set of troponins completely negative VTE ppx - enoxaparin dispo - long-term care placement In my clinical judgment, the patient requires continued inpatient hospitalization for the following reasons: placement Total time managing care of this patient today: 25 minutes. Quality Stroke Does the patient have a stroke diagnosis?: No VTE Prior VTE?: No VTE Risk Level:: Medical - moderate - high VTE Device Contraindication: Treatment Not Indicated VTE Drug Contraindication: N/A - Med Ordered
[2025-01-12 16:09] VITALS: BP 117/78; PULSE 73; RESP 12; TEMP 36.7; O2SAT 97
[2025-01-12] MEDS: Enoxaparin Sodium 40 MG/0.4 ML SYRINGE SUBCUT (20:34)
[2025-01-12 23:49] VITALS: BP 118/75; PULSE 60; RESP 18; TEMP 36.1; O2SAT 98
[2025-01-13 07:28] VITALS: BP 124/69; PULSE 71; RESP 16; TEMP 36.8; O2SAT 98
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
--- NOTE | 2025-01-13 12:44 | MHC.CM.PN ---
PASRR level 2 complete. Patient accepted by [facility] for LTC today. BLS transport scheduled for 3pm. Daughter/guardian Jonelle in agreement w/ plan. , RN aware.
== END 2025-01-13 15:02 ==
LOC: HO.ED 23:38 → HO.EDOVER 11-23 17:52 → HO.S3 11-25 07:49
PROVIDERS: Emergency Medicine; Nurse Practitioner Acute Care; Social Worker; Student in an Organized Health Care Education/Training Program; Admitting Provider Student in an Organized Health Care Education/Training Program; Emergency Provider Emergency Medicine Emergency Medical Services; Visit Provider Family Medicine
DX: F03.92 Unspecified dementia, unspecified severity, with psychotic disturbance (principal); R07.89 Other chest pain; F22 Delusional disorders; I10 Essential (primary) hypertension; Z23 Encounter for immunization; Z59.00 Homelessness unspecified; Z03.818 Encounter for observation for suspected exposure to other biological agents ruled out
CPT/HCPCS: 0241U; 36415; 70450; 71045; 80048; 80053; 80061; 81001; 82607; 82746; 83540; 84443; 84484; 85025; 85027; 90471; 90656; 93005; 96372; 99221; 99285; J1650; S9485

== ENCOUNTER → 2024-11-19 01:13 | Outpatient (BNV) | payer MEDICAID, SELFPAY | PROVIDERS: Emergency Provider Emergency Medicine; Visit Provider Internal Medicine | DX: R07.9 Chest pain, unspecified (principal) | CPT/HCPCS: 93010 ==

== ENCOUNTER → 2024-11-19 01:40 | Outpatient (BNV) | payer MEDICAID, SELFPAY | PROVIDERS: Emergency Provider Emergency Medicine; Visit Provider Radiology Diagnostic Radiology | DX: R07.9 Chest pain, unspecified (principal) | CPT/HCPCS: 71045 ==

== ENCOUNTER → 2024-11-19 03:41 | Outpatient (BNV) | payer OTHER, SELFPAY | PROVIDERS: Emergency Provider Emergency Medicine Emergency Medical Services; Visit Provider Social Worker | DX: F03.90 Unspecified dementia, unspecified severity, without behavioral disturbance, psychotic disturbance, mood disturbance, and anxiety (principal); Z59.00 Homelessness unspecified | CPT/HCPCS: 99232; 99284; 99285 ==

== ENCOUNTER → 2024-11-21 15:36 | Outpatient (BNV) | payer MEDICAID, SELFPAY | PROVIDERS: Emergency Provider Emergency Medicine Emergency Medical Services; Visit Provider Radiology Diagnostic Radiology | DX: R41.89 Other symptoms and signs involving cognitive functions and awareness (principal) | CPT/HCPCS: 70450 ==

== ENCOUNTER 2024-11-23 17:39 | Outpatient (BNV) | payer MEDICARE, MEDICAID, SELFPAY | END 2024-12-09 11:16 | PROVIDERS: Admitting Provider Student in an Organized Health Care Education/Training Program; Emergency Provider Emergency Medicine Emergency Medical Services; Visit Provider Internal Medicine Cardiovascular Disease | DX: R07.9 Chest pain, unspecified (principal) | CPT/HCPCS: 93010 ==

== ENCOUNTER → 2024-11-23 17:39 | Outpatient (BNV) | payer MEDICARE, MEDICAID, SELFPAY | PROVIDERS: Admitting Provider Student in an Organized Health Care Education/Training Program; Emergency Provider Emergency Medicine Emergency Medical Services; Visit Provider Student in an Organized Health Care Education/Training Program | DX: F03.C2 Unspecified dementia, severe, with psychotic disturbance (principal) | CPT/HCPCS: 99222; 99231; 99232 ==

== ENCOUNTER 2025-01-14 05:24 | Outpatient (REF) | payer MEDICARE, MEDICAID, SELFPAY ==
[2025-01-14 05:28] LABS: MANUAL DIFF FLAG NO
[2025-01-14 05:52] LABS: Basophils Percent Auto 0.4 % (0-2); Eosinophils Absolute Auto 0.1 X10*3/uL (0.0-0.4); Eosinophils Percent Auto 1.4 % (0-4); Hematocrit 38.3 % (42.0-52.0); Hemoglobin 12.8 g/dl (14.0-18.0); Imm Gran Abs Auto 0.01 X10*3/uL (0.00-0.03); Imm Gran Pct Auto 0.2 % (0.0-0.4); Lymphocytes Absolute Auto 2.5 X10*3/uL (1.2-4.9); Lymphocytes Percent Auto 49.3 % (20-40); Mean Corpuscular HGB Conc 33.4 g/dl (31.0-36.0); Mean Corpuscular Hemoglobin 29.9 pg (27.0-33.0); Mean Corpuscular Volume 89.5 fL (80.0-98.0); Mean Platelet Volume 10.7 fL (9.4-12.4); Monocytes Absolute Auto 0.6 X10*3/uL (0.1-1.2); Monocytes Percent Auto 11.1 % (2-11); Neutrophils Absolute Auto 1.9 x10*3/uL (2.0-8.3); Neutrophils Percent Auto 37.6 % (45-73); Platelet Count 166 X10*3/uL (160-400); Red Blood Count 4.28 X10*6/uL (4.60-5.80); Red Cell Distribution Width 11.9 % (11.0-16.0)
[2025-01-14 06:09] LABS: Alanine Aminotransferase 24 U/L (0-40); Albumin Level 3.7 g/dL (3.5-5.0); Alkaline Phosphatase 45 U/L (39-117); Anion Gap 9 (12-20); Aspartate Amino Transferase 24 U/L (5-37); Bilirubin Total 0.8 mg/dL (0.0-1.0); Blood Urea Nitrogen 13 mg/dL (9-16); Calcium 9.2 mg/dL (8.4-10.2); Carbon Dioxide 29 mmol/L (22-29); Chloride 105 mmol/L (96-108); Estimated Glomerular Filt Rate > 60; Glucose Random 91 mg/dL (60-115); Potassium 4.2 mmol/L (3.3-5.1); Sodium 139 mmol/L (135-145)
== END 2025-01-14 05:25 | disposition home or self-care (01) ==
LOC: HO.MMNH3L 05:24
PROVIDERS: Visit Provider Student in an Organized Health Care Education/Training Program
DX: F29 Unspecified psychosis not due to a substance or known physiological condition (principal); F03.90 Unspecified dementia, unspecified severity, without behavioral disturbance, psychotic disturbance, mood disturbance, and anxiety
CPT/HCPCS: 36415; 80053; 85025

== ENCOUNTER 2025-01-20 05:46 | Outpatient (REF) | payer MEDICARE, MEDICAID, SELFPAY ==
[2025-01-20 05:48] LABS: MANUAL DIFF FLAG NO
[2025-01-20 06:13] LABS: Basophils Percent Auto 0.4 % (0-2); Eosinophils Absolute Auto 0.1 X10*3/uL (0.0-0.4); Eosinophils Percent Auto 1.3 % (0-4); Hematocrit 40.9 % (42.0-52.0); Hemoglobin 13.2 g/dl (14.0-18.0); Imm Gran Abs Auto 0.01 X10*3/uL (0.00-0.03); Imm Gran Pct Auto 0.2 % (0.0-0.4); Lymphocytes Absolute Auto 2.5 X10*3/uL (1.2-4.9); Lymphocytes Percent Auto 45.4 % (20-40); Mean Corpuscular HGB Conc 32.3 g/dl (31.0-36.0); Mean Corpuscular Hemoglobin 29.5 pg (27.0-33.0); Mean Corpuscular Volume 91.5 fL (80.0-98.0); Mean Platelet Volume 10.7 fL (9.4-12.4); Monocytes Absolute Auto 0.5 X10*3/uL (0.1-1.2); Monocytes Percent Auto 8.9 % (2-11); Neutrophils Absolute Auto 2.4 x10*3/uL (2.0-8.3); Neutrophils Percent Auto 43.8 % (45-73); Platelet Count 167 X10*3/uL (160-400); Red Blood Count 4.47 X10*6/uL (4.60-5.80); Red Cell Distribution Width 12.3 % (11.0-16.0); White Blood Count 5.5 X10*3/uL (4.8-10.8)
[2025-01-20 06:36] LABS: Anion Gap 11 (12-20); Blood Urea Nitrogen 12 mg/dL (9-16); Calcium 8.8 mg/dL (8.4-10.2); Carbon Dioxide 27 mmol/L (22-29); Chloride 108 mmol/L (96-108); Estimated Glomerular Filt Rate > 60; Glucose Random 92 mg/dL (60-115); Sodium 142 mmol/L (135-145)
== END 2025-01-20 05:47 | disposition home or self-care (01) ==
LOC: HO.MMNH3L 05:46
PROVIDERS: Visit Provider Student in an Organized Health Care Education/Training Program
DX: F29 Unspecified psychosis not due to a substance or known physiological condition (principal); F03.90 Unspecified dementia, unspecified severity, without behavioral disturbance, psychotic disturbance, mood disturbance, and anxiety
CPT/HCPCS: 36415; 80048; 85025

== ENCOUNTER 2025-01-27 06:36 | Outpatient (REF) | payer MEDICARE, MEDICAID, SELFPAY ==
[2025-01-27 06:01] LABS: MANUAL DIFF FLAG NO
--- OUTSIDE RECORDS SUMMARY | 2025-01-27 06:38 | XMS_ITS | Clinical Summary ---
Author Organization [facility] Address [address] [place] [address] Care Team Providers Care Emergency Service Restorer Name Role Phone Faby Pate MD Primary Care Provider [phone] Surgical History Surgery Date Site/Laterality Comments OTHER SURGICAL HISTORY N/A PROCEDURE: [place] EXPLORATORY LAPAROTOMY CELIOTOMY W/WO BIOPSY SPX Medical History Medical History Date Comments Primary hypertension 01/20/2023 DX:Primary hypertension Schizophrenia (CMS/HCC V24, CMS/HCC V28) 01/21/20 DX:Schizophrenia (HCC) Social History Tobacco Use Types Packs/Day Years Used Date Smoking Tobacco: Never Smokeless Tobacco: Never Alcohol Use Standard Drinks/Week Comments Yes 0 (1 standard drink = 0.6 oz pur e alcohol) Sex and Gender Information Value Date Recorded Sex Assigned at Not on file Legal Sex Male 10:24 PM EDT Gender Identity Not on file Sexual Orientation Not on file Obstetrics History Last Filed Vital Signs Vital Sign Reading Time Taken Comments Blood Pressure 117/74 01/20/2023 3:09 PM EDT Sit ting R Arm Pulse 81 01/20/2023 3:09 PM EDT Temperature - - Respiratory Rate - - Oxygen Saturation - - Inhaled Oxygen Concentration - - Weight 64 kg (141 lb) 01/20/2023 3:09 PM EDT Height 167.6 cm (5' 6 ) 01/20/2023 3:09 PM EDT Body Mass Index 22.76 01/20/2023 3:09 PM EDT Plan of Treatment Health Maintenance Due Date Last Done Comments DTaP,Tdap,and Td Vaccines (1 - Tdap) 1976 Pneumococcal Vaccine: 50+ Ye ars (1 of 1 - PCV) 2007 Zoster Vaccines (1 of 2) 2007 Abdominal Aortic Aneurysm (A AA) Screen 06/22/2023 Cholesterol Screening (Lipid Panel) 06/22/2023 Colorectal Cancer Screening: Colonoscopy 06/22/2023 Depression Screening 06/22/2023 Falls Risk Assessment 06/22/2023 Hepatitis C Screening 06/22/2023 Medicare Annual Wellness Visit 06/22/2023 Social Influencers of Health Screening 06/22/2023 Hypertension/CHF/CAD Annual BMP Blood Test 06/27/2023 COVID-19 Vaccine (2023-2 5 season) 2024 Influenza Vaccine (Season Ended) 2025 RSV Immunization Adult Patie nts (1 - 1-dose 75+ series) 2032 HIB Vaccines Aged Out No longer eligi ble based on patient's age to complete this topic HPV Vaccines Aged Out No longer eligi ble based on patient's age to complete this topic Hepatitis A Vaccines Aged Out No long er eligible based on patient's age to complete this topic Hepatitis B Vaccines Aged Out No long er eligible based on patient's age to complete this topic IPV Vaccines Aged Out No longer eligi ble based on patient's age to complete this topic MMR Vaccines Aged Out No longer eligi ble based on patient's age to complete this topic Meningococcal ACWY Vaccine Aged Out N o longer eligible based on patient's age to complete this topic Meningococcal B Vaccine Aged Out No l onger eligible based on patient's age to complete this topic RSV Immunization Patients Un [place] 20 months Aged Out No longer eligible b ased on patient's age to complete this topic Varicella Vaccines Aged Out No longer eligible based on patient's age to complete this topic Care Teams Emergency Service Restorer Relationship Specialty Start Date End Date Faby Pate MD [address] [place] [address] PCP - General 12/27/22
[2025-01-27 06:49] LABS: Anion Gap 10 (12-20); Blood Urea Nitrogen 8 mg/dL (9-16); Carbon Dioxide 28 mmol/L (22-29); Chloride 107 mmol/L (96-108); Estimated Glomerular Filt Rate > 60; Glucose Random 89 mg/dL (60-115); Potassium 3.8 mmol/L (3.3-5.1); Sodium 141 mmol/L (135-145)
[2025-01-27 06:58] LABS: Basophils Percent Auto 0.4 % (0-2); Eosinophils Absolute Auto 0.1 X10*3/uL (0.0-0.4); Hematocrit 36.9 % (42.0-52.0); Hemoglobin 12.3 g/dl (14.0-18.0); Imm Gran Abs Auto 0.01 X10*3/uL (0.00-0.03); Imm Gran Pct Auto 0.2 % (0.0-0.4); Lymphocytes Absolute Auto 2.3 X10*3/uL (1.2-4.9); Lymphocytes Percent Auto 48.5 % (20-40); Mean Corpuscular HGB Conc 33.3 g/dl (31.0-36.0); Mean Corpuscular Hemoglobin 29.8 pg (27.0-33.0); Mean Corpuscular Volume 89.3 fL (80.0-98.0); Mean Platelet Volume 10.7 fL (9.4-12.4); Monocytes Absolute Auto 0.6 X10*3/uL (0.1-1.2); Monocytes Percent Auto 11.6 % (2-11); Neutrophils Absolute Auto 1.8 x10*3/uL (2.0-8.3); Neutrophils Percent Auto 38.3 % (45-73); Platelet Count 171 X10*3/uL (160-400); Red Blood Count 4.13 X10*6/uL (4.60-5.80); Red Cell Distribution Width 12.2 % (11.0-16.0); White Blood Count 4.8 X10*3/uL (4.8-10.8)
== END 2025-01-27 06:37 | disposition home or self-care (01) ==
LOC: HO.MMNH3L 06:36
PROVIDERS: Visit Provider Student in an Organized Health Care Education/Training Program
DX: F29 Unspecified psychosis not due to a substance or known physiological condition (principal); F03.90 Unspecified dementia, unspecified severity, without behavioral disturbance, psychotic disturbance, mood disturbance, and anxiety
CPT/HCPCS: 36415; 80048; 85025

== ENCOUNTER 2025-02-03 06:10 | Outpatient (REF) | payer MEDICARE, MEDICAID, SELFPAY ==
[2025-02-03 06:11] LABS: MANUAL DIFF FLAG NO
--- OUTSIDE RECORDS SUMMARY | 2025-02-03 06:11 | XMS_ITS | Clinical Summary ---
Author Organization [facility] Address [address] [place] [address] Care Team Providers Care Finance Assistant Name Role Phone Faby Pate MD Primary Care Provider [phone] Surgical History Surgery Date Site/Laterality Comments OTHER SURGICAL HISTORY N/A PROCEDURE: [place] EXPLORATORY LAPAROTOMY CELIOTOMY W/WO BIOPSY SPX Medical [...] age to complete this topic Care Teams Finance Assistant Relationship Specialty Start Date End Date Faby Pate MD [address] [place] [address] PCP - General 12/27/22
[2025-02-03 06:55] LABS: Basophils Percent Auto 0.4 % (0-2); Eosinophils Absolute Auto 0.1 X10*3/uL (0.0-0.4); Eosinophils Percent Auto 1.4 % (0-4); Hematocrit 39.5 % (42.0-52.0); Hemoglobin 12.9 g/dl (14.0-18.0); Imm Gran Abs Auto 0.01 X10*3/uL (0.00-0.03); Imm Gran Pct Auto 0.2 % (0.0-0.4); Lymphocytes Absolute Auto 2.5 X10*3/uL (1.2-4.9); Lymphocytes Percent Auto 49.9 % (20-40); Mean Corpuscular HGB Conc 32.7 g/dl (31.0-36.0); Mean Corpuscular Hemoglobin 29.7 pg (27.0-33.0); Mean Corpuscular Volume 90.8 fL (80.0-98.0); Mean Platelet Volume 10.8 fL (9.4-12.4); Monocytes Absolute Auto 0.5 X10*3/uL (0.1-1.2); Monocytes Percent Auto 10.6 % (2-11); Neutrophils Absolute Auto 1.9 x10*3/uL (2.0-8.3); Neutrophils Percent Auto 37.5 % (45-73); Platelet Count 199 X10*3/uL (160-400); Red Blood Count 4.35 X10*6/uL (4.60-5.80); Red Cell Distribution Width 12.1 % (11.0-16.0); White Blood Count 5.1 X10*3/uL (4.8-10.8)
[2025-02-03 07:11] LABS: Anion Gap 9 (12-20); Blood Urea Nitrogen 15 mg/dL (9-16); Calcium 9.3 mg/dL (8.4-10.2); Carbon Dioxide 31 mmol/L (22-29); Chloride 104 mmol/L (96-108); Estimated Glomerular Filt Rate > 60; Glucose Random 93 mg/dL (60-115); Potassium 3.8 mmol/L (3.3-5.1); Sodium 140 mmol/L (135-145)
== END 2025-02-03 06:11 | disposition home or self-care (01) ==
LOC: HO.MMNH3L 06:10
PROVIDERS: Visit Provider Student in an Organized Health Care Education/Training Program
DX: F29 Unspecified psychosis not due to a substance or known physiological condition (principal); F03.90 Unspecified dementia, unspecified severity, without behavioral disturbance, psychotic disturbance, mood disturbance, and anxiety
CPT/HCPCS: 36415; 80048; 85025

== ENCOUNTER 2025-04-05 12:47 | Emergency (ER) | payer MEDICARE, MEDICAID, SELFPAY ==
--- NOTE | ~2025-04-05 | XR_ITS ---
EXAMINATION: XR SHOULDER, RIGHT CLINICAL INFORMATION: nontraumatic pain COMPARISON: None available. TECHNIQUE: AP external rotation, Grashey, scapular Y, and axillary views of the right shoulder. FINDINGS: Mild to moderate degenerative changes are present in the AC joint with marginal osteophytes. There is no AC joint separation. Inferior glenoid demonstrates small marginal osteophytes. There is no sign of a dislocation or fracture. XR/XR shoulder RT min 2V IMPRESSION: Mild to moderate AC joint arthropathy. Electronically signed by: Idris Christensen MD 04/08/2025 04:11 PM EDT
[2025-04-05 13:03] VITALS: BP 153/82; BP 164/82; PULSE 69; PULSE 70; RESP 18; TEMP 36.6; O2SAT 97; O2SAT 99; BMI 18.9
[2025-04-05 13:10] VITALS: BP 153/82; PULSE 69; RESP 18; TEMP 36.6; O2SAT 99
--- NOTE | 2025-04-05 13:27 | ED_ITS ---
HPI - General Adult General Chief complaint: Behavioral Concerns Stated complaint: SNF STS INCR AGGRESSION,COOP PER EMS Time Seen by Provider: 04/05/25 13:26 Source: patient and RN notes reviewed Mode of arrival: ambulatory Limitations: no limitations History of Present Illness ED Provider: Lay Hilliard PA-C HPI narrative: This is a 69-year-old male, with a past medical history of dementia, who presents emergency department via EMS from [facility] for psychiatric evaluation. Per EMS, patient was becoming aggressive with staff. While patient was at [facility] this morning, patient approached the desk and was yelling and getting into the faces of other staff members. Patient reports that he is frustrated in regards to the situation that occurred from this morning, otherwise he is feeling well. He has no suicidal or homicidal ideation. He has no auditory or visual hallucinations. He is unsure why he is here. No other complaints or concerns at this time. MD complaint: ? Agitation, psychiatric evaluation Quality: aching Pain Consistency: constant Relieving factors: none Exacerbating factors: none Associated symptoms: denies other symptoms Treatments prior to arrival: none Related Data Home Medications ?Medication ?Instructions ?Recorded ?Confirmed amlodipine 5 mg tablet 7.5 mg PO DAILY 04/06/25 Allergies Allergy/AdvReac Type Severity Reaction Status Date / Time penicillin V Allergy Unknown Unknown Verified 04/05/25 13:08 Review of Systems 2 Review of Systems: Yes all other systems are reviewed and are negative Constitutional: Constitutional: Reports as per [facility] Past Medical History Medical History (Updated 04/10/25 @ 00:01 by Gustavo Lazaro) Schizophrenia Social History Social History (Updated 11/25/24 @ 12:19 by Alyx Huynh RN) Household Members: None Housing: Homeless Are you a primary mall plant caretaker to a significant other at home: No Do you presently have visiting nurse or other home services: No Patient Tobacco Use Status: Never used Tobacco service: No Physical Exam ED Vital Signs: Vital Signs - 24 hr 04/08/25 18:29 04/09/25 05:07 Temperature 98.0 F 98.0 F Pulse Rate 74 84 Respiratory Rate 18 16 Blood Pressure 134/78 123/82 Pulse Oximetry 96 99 Oxygen Delivery Method Room Air Room Air BMI result Body Mass Index 18.9 Const General: cooperative, comfortable and no acute distress Orientation/consciousness: patient oriented x3 Limitations: no limitations [facility] Head: Yes normal to inspection, Yes normocephalic and Yes atraumatic Ears: hearing grossly normal bilaterally General nose exam: Normal external nose present Face and sinus: Yes normal facial exam Mouth: Normal oral and palatal mucosa present, oropharynx normal and moist mucous membranes Throat: Yes posterior oropharynx normal Eyes General: appearance normal, both eyes and all related structures Eyelids: Yes eyelids normal Conjunctivae: conjunctivae normal Sclerae: sclerae normal Pupils: Equal, round and reactive pupils present EOM: EOMs intact bilaterally Neck Neck: Yes normal visual inspection, Yes full ROM and Yes no lymphadenopathy Lymphatic: no lymphadenopathy noted Chest Chest palpation & inspection: normal inspection of the chest Resp Effort & Inspection: normal respiratory effort and able to speak in complete sentences Auscultation: clear to auscultation bilaterally, no crackles, no rales, no rhonchi and no wheezes Cardio Rate: regular rate Rhythm: regular rhythm Heart sounds: S1 normal heart sound present and S2 normal heart sound present GI Inspection: Yes normal to inspection Skin General skin exam: no rashes or lesions noted Trauma: no lacerations or abrasions Wounds: no wounds Neuro General: patient oriented x3 and moves all extremities Cranial nerves: Yes Equal, round and reactive pupils present Extrem General: Yes normal to inspection Right upper extremity: normal to inspection Left upper extremity: normal to inspection Right lower extremity: normal to inspection Left lower extremity: normal to inspection Course Reevaluation(s) Reevaluation #1: This patient also requires a care team consult, it sounds as if he has decompensated with the his schizophrenia, we will place it now Time: 20:59 Reevaluation #2: Time: 13:23 Date: 04/06/25 Provider: VERA Bernstein Patient in physician observation for psychiatric evaluation.? Patient was evaluated by the care team, awaiting psychiatric evaluation. It appears that patient has not been taking his medications at [facility]. Unclear if he currently meets inpatient level of care Reevaluation #3: Time: 11:10 Date: 04/07/25 Provider: Su Young, DO Patient in physician observation for psychiatric evaluation.? No acute events reported overnight. No current complaints. VS stable.? Patient is pending CM eval. Will continue to monitor. Additional Reevaluation(s): Time: 09:00 Date: 04/09/25 Provider: VERA Bernstein Physician observation ended at 0900. Patient has been cleared medically, as well as psychiatrically. He will return back to [facility] at 11:00 a.m. today. Physician observation has ended. Medications Administered Discontinued Medications Generic Name Dose Route Start Last Admin Trade Name Danay PRN Reason Stop Dose Admin Acetaminophen 975 mg 04/08/25 02:03 04/08/25 02:08 Acetaminophen 325 Mg Tablet PO 04/08/25 02:04 975 mg ONCE ONE Administration Acetaminophen 975 mg 04/08/25 11:26 04/08/25 11:30 Acetaminophen 325 Mg Tablet PO 04/08/25 11:27 975 mg ONCE ONE Administration Ibuprofen 400 mg 04/08/25 13:43 04/08/25 15:20 Ibuprofen 400 Mg Tablet PO 04/08/25 13:44 400 mg ONCE ONE Administration Medical Decision Making Medical Decision Making [facility] Narrative: This is a 69-year-old male, with a history of dementia, who presents emergency department via EMS from [facility] with concerns for agitation that is occurred this morning. On arrival, blood pressure is elevated at 150 3/82, all other vital signs within normal limits. He is speaking in full sentences under no acute distress. He has no SI or HI. No auditory or visual hallucinations. Patient was found to be agitated this morning, and was in other staff members bases per EMS. On arrival, patient is, cooperative, speaking in full sentences under no acute distress. [facility] will not take patient back until he is evaluated and has a psych eval. Plan: Labs, UA, care team, we will continue to monitor pending workup. Labs returned, he has no leukocytosis, H&H stable, chemistry with no significant electrolyte derangement. Awaiting UA as well as psychiatric consultation. Differential Diagnosis Differential Diagnoses: The differential diagnosis associated with the presentation includes Agitation, electrolyte derangement, schizophrenia, dementia Lab Data [facility] Lab Attestation statement: I reviewed the patient's lab results. 04/05/25 16:55 04/05/25 16:55 Labs: Lab Results 04/05/25 04/05/25 Range/Units 16:55 20:46 WBC 8.0 (4.8-10.8) X10*3/uL RBC 4.46 L (4.60-5.80) X10*6/uL Hgb 13.5 L (14.0-18.0) g/dl Hct 40.0 L (42.0-52.0) % MCV 89.7 (80.0-98.0) fL MCH 30.3 (27.0-33.0) pg MCHC 33.8 (31.0-36.0) g/dl RDW 11.9 (11.0-16.0) % Plt Count 209 (160-400) X10*3/uL MPV 10.3 (9.4-12.4) fL Immature Gran % (Auto) 0.2 (0.0-0.4) % Neut % (Auto) 62.5 (45-73) % Lymph % (Auto) 28.5 (20-40) % [place] % (Auto) 8.0 (2-11) % Eos % (Auto) 0.6 (0-4) % Baso % (Auto) 0.2 (0-2) % Lymph # (Auto) 2.3 (1.2-4.9) X10*3/uL [place] # (Auto) 0.6 (0.1-1.2) X10*3/uL Eos # (Auto) 0.1 (0.0-0.4) X10*3/uL Baso # (Auto) 0.0 (0.0-0.2) X10*3/uL Abs Immat Gran (auto) 0.02 (0.00-0.03) X10*3/uL Absolute Neuts (auto) 5.0 (2.0-8.3) x10*3/uL Absolute Nucleated RBC 0.000 (0.0-0.012) X10*3/uL Nucleated RBC % (auto) 0.0 (0.0-0.2) /100WBC Sodium 140 (135-145) mmol/L Potassium 3.6 (3.3-5.1) mmol/L Chloride 103 (96-108) mmol/L Carbon Dioxide 30 H (22-29) mmol/L Anion Gap 11 L (12-20) BUN 16 (9-16) mg/dL Creatinine 0.87 (0.5-1.4) mg/dL Estim Creat Clear Calc 71.6 Estimated GFR > 60 Random Glucose 147 H (60-115) mg/dL Calcium 9.7 (8.4-10.2) mg/dL Total Bilirubin 0.4 (0.0-1.0) mg/dL Direct Bilirubin 0.2 (0.0-0.5) mg/dL AST 25 (5-37) U/L ALT 21 (0-40) U/L Alkaline Phosphatase 76 (39-117) U/L Total Protein 7.5 (6.5-8.0) g/dL Albumin 4.6 (3.5-5.0) g/dL Urine Color Yellow Urine Appearance Clear Urine pH 5.5 (5.0-9.0) Ur Specific [place] 1.025 (1.005-1.025) Urine Protein Negative (Neg-Trace) mg/dL Urine Glucose (UA) Negative (Negative) mg/dL Urine Ketones Negative (Negative) mg/dL Urine Blood Negative (Negative) Urine Nitrite Negative (Negative) Ur Leukocyte Esterase Negative (Negative) Urine Opiates Screen Not Detected (Not Detect) Ur Buprenorphine Scrn Not Detected (Not Detect) ng/mL Ur Oxycodone Screen Not Detected (Not Detect) ng/mL Urine Methadone Screen Not Detected (Not Detect) ng/mL Urine Fentanyl Screen Not Detected (Not Detect) Ur Barbiturates Screen Not Detected (Not Detect) Ur Phencyclidine Scrn Not Detected (Not Detect) Ur Amphetamines Screen Not Detected (Not Detect) U Benzodiazepines Scrn Not Detected (Not Detect) Urine Cocaine Screen Not Detected (Not Detect) U Marijuana (THC) Screen Not Detected (Not Detect) Ethyl Alcohol < 10 mg/dL Radiology Impression Discussion of test interpretation with radiology: I have reviewed the radiologist's reading. External Record Review External record reviewed: Inpatient record, Office record, Outpatient record, Prior outpatient labs, Prior outpatient radiology, Primary care record and Outside ED record Discharge Plan Discharge Clinical Impression: Dementia, Schizophrenia, Major neurocognitive disorder Patient Disposition: Xfer LTC Transfer Details: [facility] TO [facility] Additional Instructions: Fabian was seen and he did not meet any medical or psychiatric reason for admission. Please continue all at-home medications as prescribed. If any new or worsening symptoms occur including but not limited to changes to his baseline behavior, severe chest pain or shortness of breath, please seek emergent care. Prescriptions: No Action amlodipine 5 mg tablet 7.5 mg PO DAILY Referrals: [facility] [Outside] Familia Willis MD [Primary Care Provider, Family Practice] Interventions: ED Discharge Assessment Last Done: 04/09/25 13:34 Discharge Date/Time: 04/09/25 13:36 Print Language: Tamazight
[2025-04-05 15:20] VITALS: BP 152/60; PULSE 66; RESP 16; TEMP 36.8; O2SAT 99
[2025-04-05 15:56] VITALS: BP 150/67; PULSE 68; RESP 15; TEMP 36.8; O2SAT 98
[2025-04-05 17:00] LABS: MANUAL DIFF FLAG NO
[2025-04-05 17:06] LABS: Hematocrit 40.0 % (42.0-52.0); Hemoglobin 13.5 g/dl (14.0-18.0); Imm Gran Abs Auto 0.02 X10*3/uL (0.00-0.03); Imm Gran Pct Auto 0.2 % (0.0-0.4); Lymphocytes Absolute Auto 2.3 X10*3/uL (1.2-4.9); Mean Corpuscular HGB Conc 33.8 g/dl (31.0-36.0); Mean Corpuscular Hemoglobin 30.3 pg (27.0-33.0); Mean Corpuscular Volume 89.7 fL (80.0-98.0); NRBC Abs Auto 0.000 X10*3/uL (0.0-0.012); NRBC Pct Auto 0.0 /100WBC (0.0-0.2); Platelet Count 209 X10*3/uL (160-400); Red Blood Count 4.46 X10*6/uL (4.60-5.80); White Blood Count 8.0 X10*3/uL (4.8-10.8)
[2025-04-05 17:19] LABS: Alanine Aminotransferase 21 U/L (0-40); Albumin Level 4.6 g/dL (3.5-5.0); Alkaline Phosphatase 76 U/L (39-117); Anion Gap 11 (12-20); Aspartate Amino Transferase 25 U/L (5-37); Blood Urea Nitrogen 16 mg/dL (9-16); Calcium 9.7 mg/dL (8.4-10.2); Carbon Dioxide 30 mmol/L (22-29); Chloride 103 mmol/L (96-108); Creatinine Clr Calc Pharmacy 71.6; Estimated Glomerular Filt Rate > 60; Potassium 3.6 mmol/L (3.3-5.1); Sodium 140 mmol/L (135-145); Total Protein 7.5 g/dL (6.5-8.0)
--- NOTE | 2025-04-05 17:23 | PC.NURSE ---
Pt moved from ED to pod, calm and cooperative, offering no complaints to this RN
[2025-04-05 21:03] LABS: Appearance Urine Clear; Glucose Urine UA Negative (Negative); PH 5.5 (5.0-9.0); Specific Gravity - Urine 1.025 (1.005-1.025)
[2025-04-05 21:14] LABS: Cannabinoid Screen Urine Not Detected (Not Detect)
[2025-04-06 06:52] VITALS: BP 122/73; PULSE 67; RESP 16; TEMP 36.4; O2SAT 99
--- NOTE | 2025-04-06 09:52 | PC.NURSE ---
Patient appears to be resting in bed at this time, no apparent distress is noted. Pt pending CARE/psych consult
--- NOTE | 2025-04-06 10:17 | PHA.MEDREC ---
Pharmacy Consult ? Medication Reconciliation Pharmacy has completed the medication reconciliation. MED REC DONE BY NURSING REVIEWED USING LIST FROM [facility]
[2025-04-06 16:54] VITALS: BP 140/80; PULSE 77; RESP 14; TEMP 36.9; O2SAT 100
--- NOTE | 2025-04-06 18:47 | PM.PSYCN ---
History of Present Illness Date of Service: 04/06/25 Chief Complaint: SNF STS INCR AGGRESSION,COOP PER EMS Discussed with referring provider: No Sources of Information: patient interviewed, chart reviewed and crisis/core team assessment reviewed Additional Sources of Information: Reviewed consult by MARIS Rodgers on 12/17/2024 HPI Narrative: Patient is a 69-year-old male with history of schizophrenia, neurocognitive disorder, who presents to the ED, sent by staff from [facility] where he has been living for 3 months, with staff reporting that patient was yelling at staff, getting in their faces, not taking medication; they also report that he can be verbally aggressive with both staff and peers but deny that he is ever assaulted anyone. ?In the ED patient was calm, reported that? ?the staff started with me and I did not do anything wrong?? patient denies all psychiatric symptoms. To technical document writer, patient was initially pleasant and calm and in good behavioral and impulse control. He explained to technical document writer that the woman of the frontload driver does not like him and he was out talking to her and she told him if he does not go back to his room that she is going to have him sent to the hospital... Patient denies that he he yelled at her or his ever been verbally abusive or threatened her, other staff or peers. Patient did become suspicious during discussion and asked technical document writer are you here to help me or to make fun of me? Washer Assembler explained the need for assessment; Patient did not like being asked if he ever has auditory hallucinations to which he replied never in his life... Patient denies other psychiatric symptoms; denies any diagnosis of schizophrenia. Patient does not want medications Past Psychiatric History: Inpatient: recently discharged from [facility] on 11/18 OP: none Past medication trials: unknown Medical Evaluation Reviewed: Yes [facility] Medical History (Updated 04/07/25 @ 09:27 by Renato Olmos MD) Schizophrenia Diagnostics Vital Signs (24Hr): Vital Signs - 24 hr 04/06/25 06:52 04/06/25 16:54 Temperature 97.6 F 98.5 F Pulse Rate 67 77 Respiratory Rate 16 14 Blood Pressure 122/73 140/80 H Pulse Oximetry 99 100 Oxygen Delivery Method Room Air Room Air BMI result Body Mass Index 18.9 Labs 04/05/25 16:55 04/05/25 16:55 Labs: Laboratory Results - last 48 hr 04/05/25 04/05/25 16:55 20:46 WBC 8.0 RBC 4.46 L Hgb 13.5 L Hct 40.0 L MCV 89.7 MCH 30.3 MCHC 33.8 RDW 11.9 Plt Count 209 MPV 10.3 Immature Gran % (Auto) 0.2 Neut % (Auto) 62.5 Lymph % (Auto) 28.5 [place] % (Auto) 8.0 Eos % (Auto) 0.6 Baso % (Auto) 0.2 Lymph # (Auto) 2.3 [place] # (Auto) 0.6 Eos # (Auto) 0.1 Baso # (Auto) 0.0 Abs Immat Gran (auto) 0.02 Absolute Neuts (auto) 5.0 Absolute Nucleated RBC 0.000 Nucleated RBC % (auto) 0.0 Sodium 140 Potassium 3.6 Chloride 103 Carbon Dioxide 30 H Anion Gap 11 L BUN 16 Creatinine 0.87 Estim Creat Clear Calc 71.6 Estimated GFR > 60 Random Glucose 147 H Calcium 9.7 Total Bilirubin 0.4 Direct Bilirubin 0.2 AST 25 ALT 21 Alkaline Phosphatase 76 Total Protein 7.5 Albumin 4.6 Urine Color Yellow Urine Appearance Clear Urine pH 5.5 Ur Specific [place] 1.025 Urine Protein Negative Urine Glucose (UA) Negative Urine Ketones Negative Urine Blood Negative Urine Nitrite Negative Ur Leukocyte Esterase Negative Urine Opiates Screen Not Detected Ur Buprenorphine Scrn Not Detected Ur Oxycodone Screen Not Detected Urine Methadone Screen Not Detected Urine Fentanyl Screen Not Detected Ur Barbiturates Screen Not Detected Ur Phencyclidine Scrn Not Detected Ur Amphetamines Screen Not Detected U Benzodiazepines Scrn Not Detected Urine Cocaine Screen Not Detected U Marijuana (THC) Screen Not Detected Ethyl Alcohol < 10 Mental Status Exam Mental Status Exam Narrative: Pt is alert and oriented; behavior is cooperative, friendly and calm but also prone to becoming suspicious and emotionally reactive; patient is not in distress; dressed in hospital attire with adequate hygiene and grooming; mood is described as good and affect congruent; eye contact appropriate; Speech is normal rate, volume and prosody and not pressured; no psychomotor agitation/retardation present; thought process is organized and goal directed; Thought content is on being unfairly treated; no paranoid ideations expressed; denies any SI/HI. Denies AVH and there is no evidence of perceptual disturbance. Patients insight and judgment impaired but at baseline. Medications Allergies Allergies Allergy/AdvReac Type Severity Reaction Status Date / Time penicillin V Allergy Unknown Unknown Verified 04/05/25 13:08 Assessment & Plan Assessment & Plan (1) Schizophrenia: Status: Acute Code(s): F20.9 - Schizophrenia, unspecified (2) Major neurocognitive disorder: Status: Acute Code(s): F03.90 - Unspecified dementia, unspecified severity, without behavioral disturbance, psychotic disturbance, mood disturbance, and anxiety Plan Patient is a 69-year-old male with history of schizophrenia, neurocognitive disorder, who presents to the ED, sent by staff from [facility] where he has been living for 3 months, with staff reporting that patient was yelling at staff, getting in their faces, not taking medication; they also report that he can be verbally aggressive with both staff and peers but deny that he is ever assaulted anyone. ?In the ED patient was calm, reported that? ?the staff started with me and I did not do anything wrong?? patient denies all psychiatric symptoms. To technical document writer, patient was initially pleasant and calm and in good behavioral and impulse control. He explained to technical document writer that the woman of the frontload driver does not like him and he was out talking to her and she told him if he does not go back to his room that she is going to have him sent to the hospital... Patient denies that he he yelled at her or his ever been verbally abusive or threatened her, other staff or peers. Patient did become suspicious during discussion and asked technical document writer are you here to help me or to make fun of me? Washer Assembler explained the need for assessment; Patient did not like being asked if he ever has auditory hallucinations to which he replied never in his life... Patient denies other psychiatric symptoms; denies any diagnosis of schizophrenia. Patient does not want medications Formulation/clinical impression: Patient is at baseline. At this time patient does not meet criteria for involuntary commitment. While he may be intermittently rude or verbally aggressive to staff/peers, this too his part of his baseline and patient has no history of any physical aggression towards anyone at [facility]. Patient would definitely benefit from being on antipsychotic medication as he is diagnosed with a psychotic illness and seems to be prone to misinterpreting others and taking offense easily, however patient does not want medication. There also seems to be a characterlogical component to patient's presentation which likely accounts for significant part of his chronic troublesome interactions and which would not change much with medication management. Despite being prone to suspiciousness, he is otherwise demonstrating organized speech and behavior and he has remained in good behavioral and impulse control throughout his time on the unit. Washer Assembler can not testify that patient is in imminent risk for harm to self or others and he remains living at his facility where his daily needs are met. Even if patient were to be psychiatrically admitted and started on medication, he would very likely again discontinue medication on discharge. Thus, technical document writer recommends that patient's family pursue legal guardianship which would better allow him to be medicated in the community. Plan: Patient appropriate for discharge back to facility Total time managing care of this patient today ____ minutes. Patient educated on: diagnosis and medication risk/benefits Informed Consent: does not understand
[2025-04-07 05:18] VITALS: BP 134/73; PULSE 78; RESP 16; TEMP 36.5; O2SAT 99
--- NOTE | 2025-04-07 07:46 | MHC.CARE ---
Pt met with psychiatry who spoke with T/W and believes Pt is at baseline and does not meet IPLOC. Pt does not present as an immient risk and is cleared by the CARE team. Pt's rehab facility stated they will not take Pt back unless he admits inpatient psych and he is not appropriate for that level of care. Pt now be a placement issue. Passing along to case management.
[2025-04-07 08:03] VITALS: BP 128/78; PULSE 69; TEMP 36.8; O2SAT 99
--- NOTE | 2025-04-07 08:23 | MHC.CM.ED ---
Received case management consult from Dr Young. Patient came to the ER from [facility] d/t aggression and being uncooperative. Patient was seen by Care Team and Psych and found not to be inpatient psych appropriate. Elisabet from Care Team attempted to get patient back to [facility] and was told facility would not accept back without inpatient psych stay. Will send return referral to [facility] in order to attempt to get patient back to [facility] for LTC. Continue to monitor for d/c needs.
--- NOTE | 2025-04-08 02:00 | PC.NURSE ---
client whos been on a couch for three days reports new onset r upper arm discomfort 03/04 offered ice or heat and pursuing analgesic, sent msg to provider.
[2025-04-08 02:04] VITALS: BP 123/86; PULSE 70; RESP 16; TEMP 36.7; O2SAT 100
--- NOTE | 2025-04-08 02:13 | PC.NURSE ---
gigi storey to provder, no evidence provder has seen and client indicates wants to be seen, notified rim fire charger operator
--- NOTE | 2025-04-08 03:00 | PC.NURSE ---
sent addl message to provider, will notify clin coordinator.
--- NOTE | 2025-04-08 03:12 | PC.NURSE ---
informed clin coordinator regarding arm pain. charge was informed around 0200
--- NOTE | 2025-04-08 03:28 | PC.NURSE ---
provider has since responded and states will be over to see client soon. informed client.
[2025-04-08 06:03] VITALS: RESP 16
--- NOTE | 2025-04-08 07:33 | PC.NURSE ---
Assumed care of patient at 0645, patient appears to be in no apparent distress this am, calm and cooperative, ambulating with steady gait around BH pod. Continue plan of care for Case Management
--- NOTE | 2025-04-08 11:06 | PC.NURSE ---
Pt requesting Tylenol for right arm pain. he reports that it started hurting last night after no particular activity or incident. Pt has limited ROM and pain throughout upper humerous and shoulder
--- NOTE | 2025-04-08 12:04 | MHC.CM.ED ---
Addendum entered by Sandra Hsieh 04/08/25 13:58: Received notification from [facility]. They are in the process of making room changes and requests patient d/c tomorrow 04/09 at 11am. Shantel STARK rebooked. Patient, Lorena WILSON and Mavis FIERRO aware. Original Note: Patient remains in ER BH pod. After conversation with Cinthya Blanton, CM director and [facility], patient can return to [facility]. Patient, Lorena WILSON and Mavis FIERRO aware. Continue to monitor for d/c needs.
[2025-04-08 18:29] VITALS: BP 134/78; PULSE 74; RESP 18; TEMP 36.7; O2SAT 96
--- NOTE | 2025-04-08 19:12 | PC.NURSE ---
Pt sitting up in bed watching tv. Patient denies SI/HI. Pt verbalizes understanding to ask if he needs anything.
--- NOTE | 2025-04-08 23:32 | PC.NURSE ---
Assumed care of patient at 2245, patient appears to be sleeping, respirations even and unlabored, no apparent distress noted. Continue plan of care for transport back to [facility] tomorrow morning at 11am
[2025-04-09 05:07] VITALS: BP 123/82; PULSE 84; RESP 16; TEMP 36.7; O2SAT 99
--- NOTE | 2025-04-09 06:12 | PC.NURSE ---
Pt slept through most of the night, woke up to use bathroom, ambulated with steady gait around BH pod, offering no complaints
--- NOTE | 2025-04-09 09:36 | MHC.CM.ED ---
Patient will d/c back to [facility] via BLS at 11am. Shantel SANDOVALS booked. Med [facility] with chart. Patient, Jacqui RN and Lay GAMEZ aware. Attempted to notify daughter/guardian: Jonelle via telephone at [phone]. Left message with CM contact info and d/c info. Continue to monitor for d/c needs.
[2025-04-09 13:34] VITALS: BP 123/82; PULSE 84; RESP 16; TEMP 36.7; O2SAT 99
== END 2025-04-09 13:36 ==
PROVIDERS: Physician Assistant Medical; Emergency Provider Emergency Medicine; PCP Student in an Organized Health Care Education/Training Program
DX: F20.9 Schizophrenia, unspecified (principal); F03.90 Unspecified dementia, unspecified severity, without behavioral disturbance, psychotic disturbance, mood disturbance, and anxiety; R45.1 Restlessness and agitation; Z79.899 Other long term (current) drug therapy
CPT/HCPCS: 36415; 73030; 80048; 80076; 80307; 81003; 85025; 99285; S9485

== ENCOUNTER → 2025-04-05 13:37 | Outpatient (BNV) | payer MEDICARE, MEDICAID, SELFPAY | PROVIDERS: Emergency Provider Emergency Medicine; PCP Student in an Organized Health Care Education/Training Program; Visit Provider Psychiatry & Neurology Psychiatry | DX: F20.9 Schizophrenia, unspecified (principal); F03.90 Unspecified dementia, unspecified severity, without behavioral disturbance, psychotic disturbance, mood disturbance, and anxiety | CPT/HCPCS: 99283 ==

== ENCOUNTER → 2025-04-08 13:43 | Outpatient (BNV) | payer MEDICARE, MEDICAID, SELFPAY | PROVIDERS: Emergency Provider Emergency Medicine; PCP Student in an Organized Health Care Education/Training Program; Visit Provider Radiology Diagnostic Radiology | DX: M19.011 Primary osteoarthritis, right shoulder (principal) | CPT/HCPCS: 73030 ==